=== PATIENT | male | born 1945 | race Caucasian/White ===

== ENCOUNTER 2020-06-22 14:44 | Emergency (ER) | payer MEDICARE ==
[~2020-06-22] VITALS: Ht 175.3 cm; Wt 115.9 kg
[~2020-06-22 14:44] MED LIST: DOCU-28 PO
[2020-06-22] MEDS ORDERED: normal saline 1000ML IV soln IVB ONE (15:40)
[2020-06-22 16:27] LABS: BASOPHILS # (AUTO) 0.1 X10'3 (0-0.2); EOSINOPHILS # (AUTO) 0.1 X10'3 (0-0.9); EOSINOPHILS % (AUTO) 0.8 % (0-6); HEMATOCRIT 39.9 % (42.0-52.0); HEMOGLOBIN 13.3 g/dl (14.0-17.9); LYMPHOCYTES # (AUTO) 0.9 X10'3 (1.1-4.8); LYMPHOCYTES % (AUTO) 13.5 % (21-51); MEAN CORPUSCULAR HEMOGLOBIN 28.2 PG (27.0-31.0); MEAN CORPUSCULAR HGB CONC 33.4 g/dL (33.0-36.5); MEAN CORPUSCULAR VOLUME 84.4 FL (78-98); MEAN PLATELET VOLUME 8.3 FL (7.4-10.4); MONOCYTES # (AUTO) 0.6 X10'3 (0-0.9); MONOCYTES % (AUTO) 8.8 % (2-12); NEUTROPHILS % (AUTO) 75.9 % (42-75); PLATELET COUNT 303 X10'3 (140-440); RED BLOOD COUNT 4.74 X10'6 (4.70-6.10); RED CELL DISTRIBUTION WIDTH 15.2 % (11.5-14.5); WHITE BLOOD COUNT 6.5 X10'3 (4.5-11.0)
[2020-06-22 16:53] LABS: ALANINE AMINOTRANSFERASE 11 U/L (12-78); ALBUMIN 3.7 G/DL (3.4-5.0); ALKALINE PHOSPHATASE 98 IU/L (46-116); ANION GAP 8 (8-16); ASPARTATE AMINO TRANSFERASE 6 U/L (10-37); BILIRUBIN,TOTAL 0.6 MG/DL (0.1-1.0); BLOOD UREA NITROGEN 25 MG/DL (7-18); BUN/CREATININE RATIO 16.6 (5.4-32.0); CALCIUM 9.7 MG/DL (8.5-10.1); CHLORIDE 103 MMOL/L (99-107); CREATININE 1.51 MG/DL (0.60-1.10); GLUCOSE 116 MG/DL (70-104); POTASSIUM 3.8 MMOL/L (3.5-5.1); SODIUM 139 MMOL/L (135-145); TOTAL CARBON DIOXIDE 28.3 MMOL/L (24-32); TOTAL PROTEIN 7.4 G/DL (6.4-8.2); eGFR 46 ML/MIN
[2020-06-22 17:31] VITALS: BP 110/58
[2020-06-22 17:42] LABS: CLARITY,URINE CLOUDY (Clear); COLOR,URINE YELLOW (Yellow); GLUCOSE, URINE NEGATIVE (Neg); KETONES,URINE NEGATIVE (Neg); LEUKOCYTE ESTERASE ,URINE LARGE (Neg); NITRITES, URINE NEGATIVE (Neg); OCCULT BLOOD,URINE MODERATE (Neg); PH,URINE 5.5 (4.8-8.0); PROTEIN,URINE TRACE mg/dl (Neg); UROBILINOGEN,URINE 0.2 E.U/dL (0.2-1.0)
[2020-06-22 17:55] LABS: UA COLLECTION TYPE VOIDED
[2020-06-22 17:57] LABS: BACTERIA,URINE FEW /HPF (Neg); HYALINE CASTS 0-3 /LPF (NEGATIVE); MUCUS STRANDS FEW /LPF (Neg); SQUAMOUS EPITHELIAL CELL,UR MANY /LPF (FEW); TRANSITIONAL EPI CELLS,URINE MODERATE /HPF; WBC CLUMPS,URINE MODERATE /HPF (NEGATIVE); WBC,URINE TNTC /HPF (0-4)
== END 2020-06-22 17:32 | disposition home or self-care (01) ==
LOC: ER 14:44
DX: E86.0 Dehydration (principal); I95.9 Hypotension, unspecified; R55 Syncope and collapse; E11.9 Type 2 diabetes mellitus without complications; Z72.89 Other problems related to lifestyle; Z60.2 Problems related to living alone; Z79.899 Other long term (current) drug therapy
CPT/HCPCS: 36415; 71045; 80053; 81001; 83880; 84484; 85025; 87088; 93005; 96360; 99285; J7030; 96365

== ENCOUNTER 2020-07-06 05:17 | Day surgery (SDC) | payer MEDICARE, OTHER ==
[2020-07-05 10:30] LABS: BASOPHILS # (AUTO) 0.1 X10'3 (0-0.2); BASOPHILS % (AUTO) 1.1 % (0-1); EOSINOPHILS # (AUTO) 0.1 X10'3 (0-0.9); EOSINOPHILS % (AUTO) 1.4 % (0-6); HEMATOCRIT 37.6 % (42.0-52.0); HEMOGLOBIN 12.3 g/dl (14.0-17.9); LYMPHOCYTES # (AUTO) 0.7 X10'3 (1.1-4.8); LYMPHOCYTES % (AUTO) 11.4 % (21-51); MEAN CORPUSCULAR HGB CONC 32.6 g/dL (33.0-36.5); MEAN CORPUSCULAR VOLUME 85.7 FL (78-98); MEAN PLATELET VOLUME 8.6 FL (7.4-10.4); MONOCYTES # (AUTO) 0.4 X10'3 (0-0.9); MONOCYTES % (AUTO) 6.7 % (2-12); NEUTROPHILS # (AUTO) 5.1 X10'3 (1.8-7.7); NEUTROPHILS % (AUTO) 79.4 % (42-75); PLATELET COUNT 225 X10'3 (140-440); RED BLOOD COUNT 4.39 X10'6 (4.70-6.10); WHITE BLOOD COUNT 6.4 X10'3 (4.5-11.0)
[2020-07-05 10:37] LABS: ALBUMIN 3.1 G/DL (3.4-5.0); ANION GAP 10 (8-16); BLOOD UREA NITROGEN 11 MG/DL (7-18); BUN/CREATININE RATIO 11.5 (5.4-32.0); CALCIUM 8.2 MG/DL (8.5-10.1); CHLORIDE 102 MMOL/L (99-107); CREATININE 0.96 MG/DL (0.60-1.10); GLUCOSE 178 MG/DL (70-104); POTASSIUM 3.5 MMOL/L (3.5-5.1); SODIUM 137 MMOL/L (135-145); TOTAL CARBON DIOXIDE 25.5 MMOL/L (24-32); eGFR 77 ML/MIN
[2020-07-05 10:39] LABS: PARTIAL THROMBOPLASTIN TIME 26 SECONDS (22-32)
[2020-07-06] VITALS (14 sets, daily range): BP systolic 164–194; BP diastolic 86–131
[~2020-07-06] VITALS: Ht 175.3 cm; Wt 120.2 kg
[2020-07-06] MEDS ORDERED: normal saline 1,000 ML IV SCH (06:10)
[2020-07-06] MEDS ORDERED: diphenhydrAMINE 25mg capsule PO PRN (06:10)
[2020-07-06] MEDS ORDERED: LORazepam 0.5 MG tablet PO PRN (06:10)
[2020-07-06] MEDS ORDERED: LIDOcaine/PRILOcaine 5gm cream TP ONE (06:10)
[2020-07-06] MEDS ORDERED: CARV-50 PO (06:31)
[2020-07-06] MEDS ORDERED: ASPI-611 PO (06:31)
[2020-07-06] MEDS ORDERED: PIOG30TA71 PO (06:31)
[2020-07-06] MEDS ORDERED: ATOR10TA87 PO (06:31)
[2020-07-06] MEDS ORDERED: APIX5TAB3 PO (06:31)
[2020-07-06] MEDS ORDERED: FLO0.4C PO (06:31)
[2020-07-06] MEDS ORDERED: LISI10TA4 PO (06:31)
[2020-07-06] MEDS ORDERED: B12 FOLATE PO (06:32)
[2020-07-06] MEDS ORDERED: METF-951 PO (06:32)
[2020-07-06] MEDS ORDERED: midazolam 2 mg/2 ml injection ONE (11:05)
[2020-07-06] MEDS ORDERED: nitroGLYCERIN-Tridil 50MG/D5W 250 ML IV ONE (11:05)
[2020-07-06] MEDS ORDERED: verapamil 2.5 mg/ml inj IV ONE (11:05)
[2020-07-06] MEDS ORDERED: fentaNYL/PF 50MCG/1 ML 2ML syringe ONE (11:06)
[2020-07-06] MEDS ORDERED: LIDOcaine 1% (10mg/ml)w/preservative injection 20ml MDV ONE (11:06)
[2020-07-06] MEDS ORDERED: iohexol 350MG/ML 100ml bottle IV ONE ×3 (11:06→12:33)
[2020-07-06] MEDS ORDERED: iohexol 350 MG/ML 50ML vial IV ONE (11:06)
[2020-07-06] MEDS ORDERED: heparin 1,000unit/ml 10ml vial 10 ML ONE (11:06)
[2020-07-06] MEDS ORDERED: heparin 25,000 UNIT/250ml bag 250 ML IV ONE (12:33)
[2020-07-06] MEDS ORDERED: normal saline 1000ml 1,000 ML IV SCH (13:40)
[2020-07-06] MEDS ORDERED: lisinopril 10 MG tablet PO SCH (15:10)
[2020-07-06] MEDS ORDERED: carVEDilol 12.5mg tablet PO SCH (15:10)
== END 2020-07-06 19:30 | disposition home or self-care (01) ==
LOC: SSTAY O 05:17
PROVIDERS: ATTEND Internal Medicine Cardiovascular Disease
DX: R06.02 Shortness of breath (principal); R53.83 Other fatigue; I25.10 Atherosclerotic heart disease of native coronary artery without angina pectoris; I25.82 Chronic total occlusion of coronary artery; I48.91 Unspecified atrial fibrillation; E78.5 Hyperlipidemia, unspecified; I10 Essential (primary) hypertension; E11.9 Type 2 diabetes mellitus without complications; N40.0 Benign prostatic hyperplasia without lower urinary tract symptoms; Z88.0 Allergy status to penicillin; Z87.440 Personal history of urinary (tract) infections; Z79.82 Long term (current) use of aspirin; Z79.899 Other long term (current) drug therapy; Z79.84 Long term (current) use of oral hypoglycemic drugs; Z98.890 Other specified postprocedural states; Z87.442 Personal history of urinary calculi; Z80.3 Family history of malignant neoplasm of breast; Z80.6 Family history of leukemia; Z80.8 Family history of malignant neoplasm of other organs or systems
CPT/HCPCS: 36415; 80048; 85025; 85610; 85730; 93005; 93460; 99152; 99153; C1751; C1769; C1894; J1644; J2001; J2250; J3010; J7030; Q0163; Q9967; A4620; A5120; J3490

== ENCOUNTER 2021-04-16 13:28 | Emergency (ER) | payer MEDICARE, OTHER ==
[~2021-04-16] VITALS: Ht 177.8 cm; Wt 118.0 kg
[~2021-04-16 13:28] MED LIST changes: +APIX5TAB3 PO; +ASPI-611 PO; +ATOR10TA87 PO; +B12 FOLATE PO; +CARV-50 PO; -DOCU-28 PO; +FLO0.4C PO; +LISI10TA27 PO; +METF-951 PO; +PIOG30TA71 PO
[2021-04-16] MEDS ORDERED: normal saline 1000ML IV soln IVB ONE (13:50)
[2021-04-16 14:34] LABS: BASOPHILS # (AUTO) 0.1 X10'3 (0-0.2); BASOPHILS % (AUTO) 0.9 % (0-1); EOSINOPHILS # (AUTO) 0.1 X10'3 (0-0.9); EOSINOPHILS % (AUTO) 1.3 % (0-6); HEMATOCRIT 42.7 % (42.0-52.0); HEMOGLOBIN 14.1 g/dl (14.0-17.9); LYMPHOCYTES # (AUTO) 1.4 X10'3 (1.1-4.8); LYMPHOCYTES % (AUTO) 16.5 % (21-51); MEAN CORPUSCULAR HEMOGLOBIN 27.4 PG (27.0-31.0); MEAN CORPUSCULAR HGB CONC 33.1 g/dL (33.0-36.5); MEAN CORPUSCULAR VOLUME 82.8 FL (78-98); MEAN PLATELET VOLUME 9.1 FL (7.4-10.4); MONOCYTES # (AUTO) 0.5 X10'3 (0-0.9); MONOCYTES % (AUTO) 5.8 % (2-12); NEUTROPHILS # (AUTO) 6.2 X10'3 (1.8-7.7); NEUTROPHILS % (AUTO) 75.5 % (42-75); PLATELET COUNT 262 X10'3 (140-440); RED BLOOD COUNT 5.16 X10'6 (4.70-6.10); RED CELL DISTRIBUTION WIDTH 14.9 % (11.5-14.5); WHITE BLOOD COUNT 8.3 X10'3 (4.5-11.0)
[2021-04-16 14:49] LABS: ALANINE AMINOTRANSFERASE 13 U/L (12-78); ALBUMIN 3.6 G/DL (3.4-5.0); ALBUMIN/GLOBULIN RATIO 1.1 (1.1-1.5); ALKALINE PHOSPHATASE 104 IU/L (46-116); ANION GAP 12 (8-16); ASPARTATE AMINO TRANSFERASE 11 U/L (10-37); BILIRUBIN,TOTAL 0.6 MG/DL (0.1-1.0); BLOOD UREA NITROGEN 12 MG/DL (7-18); BUN/CREATININE RATIO 9.2 (5.4-32.0); CALCIUM 8.7 MG/DL (8.5-10.1); CHLORIDE 106 MMOL/L (99-107); CREATININE 1.31 MG/DL (0.60-1.10); GLUCOSE 226 MG/DL (70-104); MAGNESIUM 1.5 MG/DL (1.5-2.4); SODIUM 143 MMOL/L (135-145); TOTAL CARBON DIOXIDE 24.9 MMOL/L (24-32); TOTAL PROTEIN 6.9 G/DL (6.4-8.2); eGFR 53 ML/MIN
[2021-04-16 14:51] LABS: POTASSIUM 2.8 MMOL/L (3.5-5.1)
--- NOTE | 2021-04-16 14:52 | NUR ---
lab called: K IS 2.8, PTT TO BE REDRAWN INFORMED MONSERRAT MAZA
[2021-04-16] MEDS ORDERED: potassium Cl 20 mEq SR tablet PO ONE (14:55)
[2021-04-16] MEDS ORDERED: potassium Cl 10 mEq/100mL bag IV ONE (14:55)
[2021-04-16 15:20] LABS: PARTIAL THROMBOPLASTIN TIME 24 SECONDS (22-32)
[2021-04-16] MEDS ORDERED: normal saline 500ml IV soln 500 ML IV ONE (15:35)
[2021-04-16 16:19] LABS: CLARITY,URINE SLIGHTLY CLOUDY (Clear); COLOR,URINE YELLOW (Yellow); GLUCOSE, URINE 100 mg/dl (Neg); KETONES,URINE NEGATIVE (Neg); LEUKOCYTE ESTERASE ,URINE SMALL (Neg); NITRITES, URINE NEGATIVE (Neg); OCCULT BLOOD,URINE TRACE-LYSED (Neg); PROTEIN,URINE 30 mg/dl (Neg); UROBILINOGEN,URINE 0.2 E.U/dL (0.2-1.0)
[2021-04-16 16:26] LABS: URINE AMPHETAMINE SCREEN NEGATIVE (Neg); URINE BARBITUATE SCREEN NEGATIVE (Neg); URINE BENZODIAZEPINES SCREEN NEGATIVE (Neg); URINE CANNABINOID SCREEN NEGATIVE (Neg); URINE COCAINE SCREEN NEGATIVE (Neg); URINE METHADONE SCREEN NEGATIVE (Neg); URINE OPIATE SCREEN POSITIVE (Neg); URINE PHENCYCLIDINE SCREEN NEGATIVE (Neg)
[2021-04-16 16:28] LABS: UA COLLECTION TYPE CLN CATCH MIDSTREAM
[2021-04-16 16:29] LABS: WBC,URINE 50-100 /HPF (0-4)
[2021-04-16 16:30] LABS: BACTERIA,URINE 1+ /HPF (Neg); MUCUS STRANDS NONE SEEN /LPF (Neg); RBC,URINE NONE SEEN /HPF (0-2); SQUAMOUS EPITHELIAL CELL,UR FEW /LPF (FEW)
[2021-04-16] MEDS ORDERED: CEPH250T PO (16:34)
[2021-04-16 17:07] VITALS: BP 156/99
== END 2021-04-16 17:09 | disposition home or self-care (01) ==
LOC: ER 13:29
DX: N39.0 Urinary tract infection, site not specified (principal); Z20.822 Contact with and (suspected) exposure to COVID-19; E86.0 Dehydration; R42 Dizziness and giddiness; R50.9 Fever, unspecified; R05 Cough; I10 Essential (primary) hypertension; E11.9 Type 2 diabetes mellitus without complications; Z72.89 Other problems related to lifestyle; Z60.2 Problems related to living alone; Z79.82 Long term (current) use of aspirin; Z79.2 Long term (current) use of antibiotics; Z79.899 Other long term (current) drug therapy
CPT/HCPCS: 36415; 70450; 71045; 80053; 80305; 81001; 82948; 83735; 83880; 84484; 85025; 85610; 85730; 87088; 87186; 87635; 96365; 99285; C9803; J3480; J7030; J7040; 87077

== ENCOUNTER 2022-12-11 16:32 | Emergency (ER) | payer BC, MEDICARE, OTHER ==
[~2022-12-11] VITALS: Ht 177.8 cm; Wt 118.2 kg
[~2022-12-11 16:32] MED LIST changes: +METF-1157 PO; -METF-951 PO
[2022-12-11 17:40] VITALS: BP 112/90
[2022-12-11] MEDS ORDERED: bacitracin 15gm ointment TP ONE (17:45)
== END 2022-12-11 20:51 | disposition home or self-care (01) ==
LOC: ER 16:33
DX: S51.812A Laceration without foreign body of left forearm, initial encounter (principal); I10 Essential (primary) hypertension; E11.9 Type 2 diabetes mellitus without complications; Z60.2 Problems related to living alone; Z79.82 Long term (current) use of aspirin; Z79.01 Long term (current) use of anticoagulants; Z79.84 Long term (current) use of oral hypoglycemic drugs; Z79.899 Other long term (current) drug therapy; W18.39XA Other fall on same level, initial encounter; Y93.89 Activity, other specified; Y92.89 Other specified places as the place of occurrence of the external cause; Y99.8 Other external cause status
CPT/HCPCS: 73080; 73090; 99284; A6258; A6449

== ENCOUNTER 2023-03-14 11:54 | Emergency (ER) | payer BC ==
[~2023-03-14] VITALS: Ht 175.3 cm; Wt 115.0 kg
[2023-03-14 12:51] LABS: BASOPHILS # (AUTO) 0.1 X10'3 (0-0.2); BASOPHILS % (AUTO) 0.9 % (0-1); EOSINOPHILS # (AUTO) 0.1 X10'3 (0-0.9); EOSINOPHILS % (AUTO) 1.2 % (0-6); HEMATOCRIT 46.4 % (42.0-52.0); HEMOGLOBIN 15.3 g/dl (14.0-17.9); LYMPHOCYTES # (AUTO) 0.6 X10'3 (1.1-4.8); LYMPHOCYTES % (AUTO) 7.8 % (21-51); MEAN CORPUSCULAR HEMOGLOBIN 27.5 PG (27.0-31.0); MEAN CORPUSCULAR VOLUME 83.3 FL (78-98); MEAN PLATELET VOLUME 8.8 FL (7.4-10.4); MONOCYTES # (AUTO) 0.6 X10'3 (0-0.9); MONOCYTES % (AUTO) 6.9 % (2-12); NEUTROPHILS # (AUTO) 6.7 X10'3 (1.8-7.7); NEUTROPHILS % (AUTO) 83.2 % (42-75); PLATELET COUNT 221 X10'3 (140-440); RED BLOOD COUNT 5.57 X10'6 (4.70-6.10); RED CELL DISTRIBUTION WIDTH 14.4 % (11.5-14.5)
[2023-03-14 13:01] LABS: ALANINE AMINOTRANSFERASE 17 U/L (12-78); ALBUMIN 3.4 G/DL (3.4-5.0); ALKALINE PHOSPHATASE 212 IU/L (46-116); ANION GAP 10 (8-16); ASPARTATE AMINO TRANSFERASE 13 U/L (10-37); BILIRUBIN,TOTAL 0.9 MG/DL (0.1-1.0); BLOOD UREA NITROGEN 20 MG/DL (7-18); BUN/CREATININE RATIO 16.5 (10.0-20.0); CALCIUM 8.8 MG/DL (8.5-10.1); CHLORIDE 100 MMOL/L (99-107); CREATININE 1.21 MG/DL (0.60-1.10); GLUCOSE 253 MG/DL (70-104); POTASSIUM 3.7 MMOL/L (3.5-5.1); SODIUM 137 MMOL/L (135-145); TOTAL CARBON DIOXIDE 27.1 MMOL/L (24-32); TOTAL PROTEIN 6.7 G/DL (6.4-8.2); eGFR 58 ML/MIN
[2023-03-14 13:09] VITALS: BP_DIAS 107
[2023-03-14] MEDS ORDERED: amLODIPine 5mg tablet PO ONE (13:35)
[2023-03-14 13:38] VITALS: BP_SYST 196
[2023-03-14] MEDS ORDERED: AMLO5TAB4 PO (13:44)
== END 2023-03-14 14:06 | disposition home or self-care (01) ==
LOC: ER 11:54
DX: R42 Dizziness and giddiness (principal); I10 Essential (primary) hypertension; E11.9 Type 2 diabetes mellitus without complications
CPT/HCPCS: 36415; 71045; 80053; 83880; 85025; 93005; 99285

== ENCOUNTER 2024-11-05 14:04 | Inpatient (IN) | payer BC ==
[~2024-11-05] VITALS: Ht 175.3 cm; Wt 77.3 kg
[~2024-11-05 14:04] MED LIST changes: -APIX5TAB3 PO; -ASPI-611 PO; -ATOR10TA87 PO; -CARV-50 PO; -FLO0.4C PO; -LISI10TA27 PO; -METF-1157 PO; +MULT-1085 PO; -PIOG30TA71 PO
[2024-11-05 15:02] LABS: BASOPHILS # (AUTO) 0.1 X10'3 (0-0.2); BASOPHILS % (AUTO) 0.8 % (0-1); EOSINOPHILS % (AUTO) 0.4 % (0-6); HEMOGLOBIN 13.9 g/dl (14.0-17.9); LYMPHOCYTES # (AUTO) 0.8 X10'3 (1.1-4.8); LYMPHOCYTES % (AUTO) 7.2 % (21-51); MEAN CORPUSCULAR HEMOGLOBIN 28.3 PG (27.0-31.0); MEAN CORPUSCULAR VOLUME 85.6 FL (78-98); MEAN PLATELET VOLUME 8.4 FL (7.4-10.4); MONOCYTES % (AUTO) 8.9 % (2-12); NEUTROPHILS # (AUTO) 8.9 X10'3 (1.8-7.7); NEUTROPHILS % (AUTO) 82.7 % (42-75); PLATELET COUNT 193 X10'3 (140-440); RED BLOOD COUNT 4.91 X10'6 (4.70-6.10); RED CELL DISTRIBUTION WIDTH 14.3 % (11.5-14.5); WHITE BLOOD COUNT 10.7 X10'3 (4.5-11.0)
[2024-11-05 15:12] LABS: ALANINE AMINOTRANSFERASE 20 U/L (12-78); ALBUMIN/GLOBULIN RATIO 0.8 (1.1-1.5); ALKALINE PHOSPHATASE 126 IU/L (46-116); ANION GAP 8 (8-16); ASPARTATE AMINO TRANSFERASE 20 U/L (10-37); BILIRUBIN,TOTAL 0.9 MG/DL (0.1-1.0); BLOOD UREA NITROGEN 14 MG/DL (7-18); CALCIUM 8.5 MG/DL (8.5-10.1); CHLORIDE 102 MMOL/L (99-107); CREATININE 1.08 MG/DL (0.60-1.10); GLUCOSE 155 MG/DL (70-104); POTASSIUM 4.2 MMOL/L (3.5-5.1); SODIUM 137 MMOL/L (135-145); TOTAL CARBON DIOXIDE 26.6 MMOL/L (24-32); TOTAL PROTEIN 6.6 G/DL (6.4-8.2); eCRCL 57 ML/MIN; eGFR 66 ML/MIN
[2024-11-05 15:20] LABS: PRO BRAIN NATRIURETIC PEPTIDE 4288 PG/ML (0-450)
[2024-11-05] MEDS: aspirin 81mg tab.chew PO ONE (15:35)
[2024-11-05 15:42] LABS: ETHANOL < 10 MG/DL (<10); MAGNESIUM 1.6 MG/DL (1.5-2.4)
[2024-11-05] MEDS: diltiazem 5mg/ml 5ml inj. IV ONE (15:47)
[2024-11-05] MEDS: normal saline 1000ml 1,000 ML IV ONE (15:47)
[2024-11-05] MEDS: diltiazem-NS 100mg/100ml 100 ML IV PRN (15:57)
[2024-11-05 16:01] LABS: APTT 26 SECONDS (22-32); INR 1.1 INR; PROTHROMBIN TIME 11.5 SECONDS (9.0-12.0)
[2024-11-05] MEDS ORDERED: acetaminophen 325mg tablet PO PRN ×2 (16:50)
[2024-11-05] MEDS ORDERED: ondansetron/PF 4mg/2ml inj IV PRN (16:50)
[2024-11-05] MEDS ORDERED: magnesium hydroxide 30ml (MOM) UD suspension PO PRN (16:50)
[2024-11-05] MEDS ORDERED: mag hydrox/Alum hydrox/simeth 30ml oral suspension PO PRN (16:50)
[2024-11-05] MEDS ORDERED: morphine 2 MG/ML inj. syringe IV PRN ×2 (16:50)
[2024-11-05] MEDS ORDERED: HYDROcodone/acetaminophen 5mg/325mg tablet PO PRN (16:50)
[2024-11-05] MEDS: magnesium sulf-water 2g/50mL 50 ML IV ONE (17:35)
[2024-11-05 17:42] LABS: HEMOGLOBIN A1C 6.5 % (4.5-6.2)
[2024-11-05 17:48] LABS: THYROID STIMULATING HORMONE 1.93 ulU/ml (0.34-4.50)
[2024-11-05] MEDS ORDERED: AMLO5TAB16 PO (17:48)
[2024-11-05] MEDS ORDERED: METO-384 PO (17:48)
[2024-11-05] MEDS ORDERED: METF-438 PO (17:48)
[2024-11-05] MEDS ORDERED: LISI20TA28 PO (17:48)
[2024-11-05 18:02] LABS: BILIRUBIN,URINE NEGATIVE (Neg); CLARITY,URINE CLEAR (Clear); COLOR,URINE YELLOW (Yellow); GLUCOSE, URINE 100 mg/dl (Neg); KETONES,URINE TRACE mg/dl (Neg); LEUKOCYTE ESTERASE ,URINE TRACE (Neg); NITRITES, URINE NEGATIVE (Neg); OCCULT BLOOD,URINE TRACE-INTACT (Neg); PROTEIN,URINE TRACE mg/dl (Neg)
[2024-11-05 18:05] LABS: UA COLLECTION TYPE CLN CATCH MIDSTREAM
[2024-11-05 18:25] LABS: BACTERIA,URINE FEW /HPF (Neg); RBC,URINE 0-2 /HPF (0-2); SQUAMOUS EPITHELIAL CELL,UR FEW /LPF (FEW); WBC,URINE 20-30 /HPF (0-4)
[2024-11-05 18:34] LABS: URINE AMPHETAMINE SCREEN NEGATIVE (Neg); URINE BARBITUATE SCREEN NEGATIVE (Neg); URINE BENZODIAZEPINES SCREEN NEGATIVE (Neg); URINE CANNABINOID SCREEN NEGATIVE (Neg); URINE COCAINE SCREEN NEGATIVE (Neg); URINE METHADONE SCREEN NEGATIVE (Neg); URINE OPIATE SCREEN NEGATIVE (Neg); URINE PHENCYCLIDINE SCREEN NEGATIVE (Neg)
[2024-11-05] MEDS: diltiazem CD 180mg cap (once-daily) PO SCH (19:02)
[2024-11-05] MEDS: furosemide 20 MG/2 ML vial IV SCH (19:02)
[2024-11-05] MEDS: docusate sod 100mg capsule PO SCH (20:00)
[2024-11-05] MEDS: metoprolol succinate 25mg (24-HOUR) SR. Tablet PO SCH (21:11)
[2024-11-05] MEDS: CefTRIAXone 2gm/D5W 50ml BAG 50 ML IV ONE (22:34)
[2024-11-05] MEDS: FOSFOMYCIN TROMETHAMINE 3 GM PACKET PO ONE (22:34)
[2024-11-05 22:55] VITALS: BP 117/91; PULSE 110; RESP 20; TEMP 98.1; O2SAT 98
[2024-11-05 23:00] VITALS: RESP 18; O2SAT 95
[2024-11-05 23:30] VITALS: BP 156/90; PULSE 95
[2024-11-06] VITALS (12 sets, daily range): BP systolic 121–154; BP diastolic 72–93; PULSE 73–121; RESP 20–35; TEMP 97.1–98.1; O2SAT 94–98
[2024-11-06] MEDS ORDERED: glucagon, human recombinant 1mg kit SUBCUT PRN (05:00)
[2024-11-06] MEDS ORDERED: dextrose 50%-water 50ml dispensing syringe IV PRN ×2 (05:00)
[2024-11-06] MEDS ORDERED: DEXTROSE 15 GM of carb/4 tabs (each vial/BOTTLE has 4 tablets) PO PRN ×2 (05:00)
[2024-11-06 07:24] LABS: BASOPHILS # (AUTO) 0.1 X10'3 (0-0.2); BASOPHILS % (AUTO) 0.7 % (0-1); EOSINOPHILS % (AUTO) 0.3 % (0-6); HEMATOCRIT 40.7 % (42.0-52.0); HEMOGLOBIN 13.3 g/dl (14.0-17.9); LYMPHOCYTES # (AUTO) 0.8 X10'3 (1.1-4.8); LYMPHOCYTES % (AUTO) 6.8 % (21-51); MEAN CORPUSCULAR HEMOGLOBIN 28.1 PG (27.0-31.0); MEAN CORPUSCULAR HGB CONC 32.7 g/dL (33.0-36.5); MEAN CORPUSCULAR VOLUME 85.8 FL (78-98); MEAN PLATELET VOLUME 8.6 FL (7.4-10.4); MONOCYTES # (AUTO) 1.2 X10'3 (0-0.9); NEUTROPHILS # (AUTO) 9.9 X10'3 (1.8-7.7); NEUTROPHILS % (AUTO) 82.2 % (42-75); PLATELET COUNT 188 X10'3 (140-440); RED BLOOD COUNT 4.74 X10'6 (4.70-6.10); RED CELL DISTRIBUTION WIDTH 14.5 % (11.5-14.5); WHITE BLOOD COUNT 12.1 X10'3 (4.5-11.0)
[2024-11-06 07:51] LABS: ALBUMIN 2.9 G/DL (3.4-5.0); ANION GAP 11 (8-16); BLOOD UREA NITROGEN 16 MG/DL (7-18); BUN/CREATININE RATIO 16.8 (10.0-20.0); CALCIUM 8.1 MG/DL (8.5-10.1); CHLORIDE 101 MMOL/L (99-107); CREATININE 0.95 MG/DL (0.60-1.10); GLUCOSE 160 MG/DL (70-104); SODIUM 137 MMOL/L (135-145); TOTAL CARBON DIOXIDE 25.1 MMOL/L (24-32); eCRCL 65 ML/MIN; eGFR 77 ML/MIN
[2024-11-06] MEDS: CefTRIAXone/D5W-Rocephin 1gm 50 ML IV SCH (08:06)
[2024-11-06] MEDS: INSULIN LISPRO 100 UNIT/ML INSULN.PEN MULTI-DOSE SQ SCH ×2 (08:12→10:45)
[2024-11-06] MEDS: nystatin 15 GM powder TP SCH (20:01)
[2024-11-06] MEDS: metoprolol succinate 25mg (24-HOUR) SR. Tablet PO SCH (21:31)
[2024-11-06] MEDS: insulin glargine (Lantus) pen - multi-dose SQ SCH (21:37)
[2024-11-07] VITALS (7 sets, daily range): BP systolic 120–155; BP diastolic 64–91; PULSE 63–110; RESP 16–26; TEMP 97.3–97.9; O2SAT 96–99
[2024-11-07 06:39] LABS: BASOPHILS # (AUTO) 0.1 X10'3 (0-0.2); BASOPHILS % (AUTO) 0.5 % (0-1); EOSINOPHILS # (AUTO) 0.1 X10'3 (0-0.9); EOSINOPHILS % (AUTO) 0.8 % (0-6); HEMATOCRIT 39.2 % (42.0-52.0); LYMPHOCYTES # (AUTO) 0.7 X10'3 (1.1-4.8); LYMPHOCYTES % (AUTO) 6.8 % (21-51); MEAN CORPUSCULAR HEMOGLOBIN 28.2 PG (27.0-31.0); MEAN CORPUSCULAR HGB CONC 33.1 g/dL (33.0-36.5); MEAN PLATELET VOLUME 8.2 FL (7.4-10.4); MONOCYTES # (AUTO) 1.1 X10'3 (0-0.9); MONOCYTES % (AUTO) 10.2 % (2-12); NEUTROPHILS % (AUTO) 81.7 % (42-75); PLATELET COUNT 196 X10'3 (140-440); RED BLOOD COUNT 4.61 X10'6 (4.70-6.10); RED CELL DISTRIBUTION WIDTH 14.3 % (11.5-14.5)
[2024-11-07 06:44] LABS: ALBUMIN 2.6 G/DL (3.4-5.0); ANION GAP 6 (8-16); BLOOD UREA NITROGEN 19 MG/DL (7-18); BUN/CREATININE RATIO 21.8 (10.0-20.0); CALCIUM 8.3 MG/DL (8.5-10.1); CHLORIDE 101 MMOL/L (99-107); CREATININE 0.87 MG/DL (0.60-1.10); GLUCOSE 146 MG/DL (70-104); POTASSIUM 3.8 MMOL/L (3.5-5.1); SODIUM 137 MMOL/L (135-145); TOTAL CARBON DIOXIDE 30.5 MMOL/L (24-32); eCRCL 71 ML/MIN; eGFR 85 ML/MIN
[2024-11-07] MEDS: EMPAGLIFLOZIN 10 MG TABLET PO SCH (07:08)
[2024-11-07] MEDS: potassium Cl 20 mEq SR tablet PO STA (10:29)
[2024-11-07] MEDS: furosemide 20 MG/2 ML vial IV ONE (10:31)
[2024-11-07] MEDS: magnesium sulf-water 2g/50mL 50 ML IV ONE (10:35)
[2024-11-07] MEDS: metoprolol succinate 25mg (24-HOUR) SR. Tablet PO SCH (20:30)
[2024-11-07] MEDS: atorvastatin 20mg tablet PO SCH (20:31)
[2024-11-07] MEDS: magnesium Cl slow-release 64mg tablet PO SCH (20:32)
[2024-11-08 02:00] VITALS: BP 138/80; PULSE 81; RESP 20; TEMP 97.8; O2SAT 98
[2024-11-08 06:34] LABS: BASOPHILS # (AUTO) 0.1 X10'3 (0-0.2); BASOPHILS % (AUTO) 0.7 % (0-1); EOSINOPHILS # (AUTO) 0.1 X10'3 (0-0.9); EOSINOPHILS % (AUTO) 1.3 % (0-6); HEMOGLOBIN 15.4 g/dl (14.0-17.9); LYMPHOCYTES # (AUTO) 0.8 X10'3 (1.1-4.8); LYMPHOCYTES % (AUTO) 8.3 % (21-51); MEAN CORPUSCULAR HEMOGLOBIN 28.6 PG (27.0-31.0); MEAN CORPUSCULAR HGB CONC 33.4 g/dL (33.0-36.5); MEAN CORPUSCULAR VOLUME 85.5 FL (78-98); MEAN PLATELET VOLUME 8.3 FL (7.4-10.4); MONOCYTES # (AUTO) 1.1 X10'3 (0-0.9); MONOCYTES % (AUTO) 11.4 % (2-12); NEUTROPHILS # (AUTO) 7.7 X10'3 (1.8-7.7); NEUTROPHILS % (AUTO) 78.3 % (42-75); PLATELET COUNT 217 X10'3 (140-440); RED BLOOD COUNT 5.38 X10'6 (4.70-6.10); RED CELL DISTRIBUTION WIDTH 14.4 % (11.5-14.5); WHITE BLOOD COUNT 9.9 X10'3 (4.5-11.0)
[2024-11-08 07:00] VITALS: BP 138/75; PULSE 109; RESP 29; TEMP 97.4; O2SAT 98
[2024-11-08 07:13] LABS: ALBUMIN 2.7 G/DL (3.4-5.0); ANION GAP 11 (8-16); BLOOD UREA NITROGEN 28 MG/DL (7-18); BUN/CREATININE RATIO 28.3 (10.0-20.0); CALCIUM 9.1 MG/DL (8.5-10.1); CHLORIDE 101 MMOL/L (99-107); CREATININE 0.99 MG/DL (0.60-1.10); GLUCOSE 143 MG/DL (70-104); POTASSIUM 4.1 MMOL/L (3.5-5.1); SODIUM 138 MMOL/L (135-145); TOTAL CARBON DIOXIDE 26.2 MMOL/L (24-32); eCRCL 62 ML/MIN; eGFR 73 ML/MIN
[2024-11-08] MEDS ORDERED: FURO-149 PO (09:11)
[2024-11-08] MEDS ORDERED: EMPA10TA PO (09:11)
[2024-11-08] MEDS ORDERED: WARF-55 PO (09:11)
[2024-11-08] MEDS ORDERED: CARCD120C PO (09:11)
[2024-11-08] MEDS ORDERED: AMOX-580 PO (09:13)
[2024-11-08 11:00] VITALS: BP 119/85; PULSE 112; RESP 25; TEMP 97.4; O2SAT 96
[2024-11-09] MEDS ORDERED: diltiazem CD 120mg capsule (once-daily) PO SCH (08:00)
== END 2024-11-08 13:50 | disposition home health service (06) | DRG 175 ==
LOC: ER 14:04 → ED HOLD 16:53 → PCU 3S 23:15
PROVIDERS: ADMIT Internal Medicine; ATTEND Internal Medicine
DX: I26.09 Other pulmonary embolism with acute cor pulmonale (principal); I50.32 Chronic diastolic (congestive) heart failure; N30.00 Acute cystitis without hematuria; F03.A18 Unspecified dementia, mild, with other behavioral disturbance; I13.0 Hypertensive heart and chronic kidney disease with heart failure and stage 1 through stage 4 chronic kidney disease, or unspecified chronic kidney disease; I42.9 Cardiomyopathy, unspecified; S42.292K Other displaced fracture of upper end of left humerus, subsequent encounter for fracture with nonunion; I48.19 Other persistent atrial fibrillation; R65.10 Systemic inflammatory response syndrome (SIRS) of non-infectious origin without acute organ dysfunction; I48.0 Paroxysmal atrial fibrillation; N18.9 Chronic kidney disease, unspecified; E11.22 Type 2 diabetes mellitus with diabetic chronic kidney disease; B95.2 Enterococcus as the cause of diseases classified elsewhere; I27.20 Pulmonary hypertension, unspecified; I25.10 Atherosclerotic heart disease of native coronary artery without angina pectoris; M25.362 Other instability, left knee; N40.0 Benign prostatic hyperplasia without lower urinary tract symptoms; E78.5 Hyperlipidemia, unspecified; Z79.01 Long term (current) use of anticoagulants; Z80.8 Family history of malignant neoplasm of other organs or systems; Z87.442 Personal history of urinary calculi; Z91.81 History of falling; W18.39XD Other fall on same level, subsequent encounter
CPT/HCPCS: 36415; 71045; 73030; 73200; 80048; 80053; 80305; 80320; 81001; 82948; 83036; 83735; 83880; 84443; 84484; 85025; 85610; 85730; 87077; 87081; 87088; 87186; 93005; 93306; 96361; 96365; 96366; 96375; 96376; 97116; 97162; 97530; 99291; G0378; J0696; J1815; J1940; J3490; J7030

== ENCOUNTER 2025-01-13 12:08 | Inpatient (IN) | payer BC ==
[~2025-01-13] VITALS: Ht 175.3 cm; Wt 81.1 kg
[2025-01-13] VITALS (7 sets, daily range): BP systolic 121–147; BP diastolic 90–102; PULSE 74–127; RESP 15–20; TEMP 97.4–98.3; O2SAT 96–99
[~2025-01-13 12:08] MED LIST changes: +CARCD120C PO; +EMPA10TA PO; +FURO-149 PO; +METO-384 PO; +WARF-55 PO
--- NOTE | 2025-01-13 12:12 | ELECTROCARDIOGRAPH REPORT ---
[facility] Test Date: 2025-01-13 Test Time: 12:10:02 Pat Name: FREDERIC MELGAR Department: EMERGENCY ROOM Room: [place] [address] Gender: M Certification Engineer: : [id number] Requested By: KELLIE GRANT Order Number: [id number] Reading MD: Dr. Gaurav Pelayo Measurements Intervals [place] Rate: 134 P: 248 SC: 84 QRS: 231 QRSD: 155 T: 158 QT: 351 QTc: 524 Interpretive Statements Sinus or ectopic atrial tachycardia Consider dextrocardia Electronically Signed On 01-20-2025 21:44:[address] Gaurav Pelayo Please click the below link to view image of tracing.
[2025-01-13 12:41] LABS: BASOPHILS # (AUTO) 0.1 X10'3 (0-0.2); BASOPHILS % (AUTO) 1.1 % (0-1); EOSINOPHILS # (AUTO) 0.1 X10'3 (0-0.9); EOSINOPHILS % (AUTO) 1.2 % (0-6); MEAN CORPUSCULAR HEMOGLOBIN 26.8 PG (27.0-31.0); MEAN CORPUSCULAR HGB CONC 32.6 g/dL (33.0-36.5); MEAN CORPUSCULAR VOLUME 82.2 FL (78-98); MEAN PLATELET VOLUME 7.7 FL (7.4-10.4); MONOCYTES # (AUTO) 0.7 X10'3 (0-0.9); NEUTROPHILS # (AUTO) 5.3 X10'3 (1.8-7.7); NEUTROPHILS % (AUTO) 73.7 % (42-75); PLATELET COUNT 294 X10'3 (140-440); RED CELL DISTRIBUTION WIDTH 15.8 % (11.5-14.5); WHITE BLOOD COUNT 7.2 X10'3 (4.5-11.0)
--- NOTE | 2025-01-13 12:58 | RADIOLOGY REPORT ---
CHEST RADIOGRAPH Indication: CP Technique: Single frontal view of the chest was obtained Comparison: 11/05/2024 FINDINGS: The cardiac silhouette is enlarged. The lungs demonstrate bilateral patchy airspace opacities, most p ronounced within the left lower lobe. The pulmonary vasculature is prominent. Small to moderate left pleural effusion. Aortic atherosclerotic disease. There is no pneumothorax. Old distal left clavicul ar fracture deformity. IMPRESSION: 1. As above
[2025-01-13 13:02] LABS: ALANINE AMINOTRANSFERASE 26 U/L (12-78); ALBUMIN 3.4 G/DL (3.4-5.0); ALBUMIN/GLOBULIN RATIO 1.1 (1.1-1.5); ALKALINE PHOSPHATASE 105 IU/L (46-116); ANION GAP 9 (8-16); ASPARTATE AMINO TRANSFERASE 22 U/L (10-37); BILIRUBIN,TOTAL 0.8 MG/DL (0.1-1.0); BLOOD UREA NITROGEN 22 MG/DL (7-18); BUN/CREATININE RATIO 24.4 (10.0-20.0); CALCIUM 8.6 MG/DL (8.5-10.1); CHLORIDE 103 MMOL/L (99-107); GLUCOSE 99 MG/DL (70-104); POTASSIUM 3.9 MMOL/L (3.5-5.1); SODIUM 139 MMOL/L (135-145); TOTAL CARBON DIOXIDE 26.6 MMOL/L (24-32); TOTAL PROTEIN 6.4 G/DL (6.4-8.2); eCRCL 68 ML/MIN; eGFR 82 ML/MIN
[2025-01-13 13:15] LABS: PRO BRAIN NATRIURETIC PEPTIDE 3018 PG/ML (0-450)
[2025-01-13 13:35] LABS: BILIRUBIN,URINE NEGATIVE (Neg); CLARITY,URINE CLOUDY (Clear); COLOR,URINE YELLOW (Yellow); GLUCOSE, URINE >=1000 mg/dl (Neg); KETONES,URINE 40 mg/dl (Neg); LEUKOCYTE ESTERASE ,URINE SMALL (Neg); NITRITES, URINE NEGATIVE (Neg); OCCULT BLOOD,URINE SMALL (Neg); PH,URINE 6.5 (4.8-8.0); PROTEIN,URINE TRACE mg/dl (Neg); UROBILINOGEN,URINE 0.2 E.U/dL (0.2-1.0)
[2025-01-13 13:48] LABS: UA COLLECTION TYPE URINAL
[2025-01-13] MEDS: diltiazem 5mg/ml 5ml inj. IV ONE (13:48)
[2025-01-13 13:49] LABS: BACTERIA,URINE 2+ /HPF (Neg); SQUAMOUS EPITHELIAL CELL,UR FEW /LPF (FEW); TRANSITIONAL EPI CELLS,URINE FEW /HPF; WBC,URINE TNTC /HPF (0-4)
[2025-01-13] MEDS: PERFLUTREN PROTEIN-A MICROSPHR (Optison) 0.22 MG/ML 3ML VIAL IV ONE (14:05)
[2025-01-13] MEDS ORDERED: potassium Cl 20 mEq SR tablet PO PRN ×2 (14:05)
[2025-01-13] MEDS ORDERED: mag hydrox/Alum hydrox/simeth 30ml oral suspension PO PRN (14:05)
[2025-01-13] MEDS ORDERED: magnesium hydroxide 30ml (MOM) UD suspension PO PRN (14:05)
[2025-01-13] MEDS ORDERED: ondansetron/PF 4mg/2ml inj IV PRN (14:05)
[2025-01-13] MEDS ORDERED: potassium Cl 40MEQ/1/2NS 520ml 520 ML IV PRN (14:05)
[2025-01-13] MEDS ORDERED: magnesium sulf-water 2g/50mL 50 ML IV PRN (14:05)
[2025-01-13] MEDS ORDERED: morphine 2 MG/ML inj. syringe IV PRN ×2 (14:05)
[2025-01-13] MEDS ORDERED: acetaminophen 325mg tablet PO PRN (14:05)
[2025-01-13] MEDS ORDERED: magnesium Cl slow-release 64mg tablet PO PRN (14:05)
[2025-01-13] MEDS ORDERED: magnesium sulf-water 4G/100mL 100 ML IV PRN (14:05)
--- NOTE | 2025-01-13 14:10 | Physician Documentation ---
History of Present Illness ~ Chief Complaint: Palpitations Stated Complaint: AFIB RVR Time Seen by MD: 12:13 Primary Medical Doctor: Mode of Arrival: EMS HPI 79 year old male with history of atrial fibrillation, sent by PCP office for elevated heart rate. The patient has a history of CHF, is on lasix, and feels fine. Denies chest pain, fevers, N/V/D. No changes in medications, no orthopnea reported. Medication Reconciliation Allergies: Coded Allergies: No Known Allergies (Unverified , 08/09/15) Scheduled Diltiazem HCl (Dilt-Xr), 240 MG PO DAILY Empagliflozin (Jardiance), 10 MG PO DAILY Furosemide (Lasix), 1 TAB PO DAILY Metoprolol Succinate (Metoprolol Succinate), 1 TAB PO DAILY, (Reported) Multivitamin (Multi Vitamin Daily), 1 TAB PO DAILY, (Reported) Warfarin Sodium (Warfarin Sodium), 1 TAB PO DAILY [B12 Folate], 800 MG PO DAILY, (Reported) Past Medical History Past Medical History: Atrial Fibrillation, Coronary Artery Disease, Hypertension, Diabetes Past Surgical History: noncontributory Alcohol Use: Sober Drug Use: none Lives with: Alone Lives In: Home Occupation: disabled, retired Review of Systems All Other Systems at this time: Reviewed and Negative Physical Exam Vital Signs: RN Vital Signs have been reviewed: Yes, Temperature: 98.3, Source: Oral, Heart Rate: 109, Respiratory Rate: 21, BP: 138/78, Pulse Oximetry: 98, Weight: 100.000 Oxygen Flow Rate: 0 Physical Exam HEENT: PERRL, moist oral mucosa, EOMI Pulmonary: No respiratory distress Cardiac: irregularly irregular tachycardia, no murmur, rub or gallop GI: nondistended, soft, nontender, no guarding, no rebound MSK: no deformity Skin: w/d/i, no rash; 1+ pitting edema to BLE Neuro: alert, nonfocal Psych: normal affect Progress Results/Orders Results/Orders Orders - KELLIE GRANT MD Chest,Single View (01/13/25 12:25) Monitor (01/13/25 12:09) Saline Lock (01/13/25 12:09) Oxygen (01/13/25 12:09) Hs Troponin I W Calculations (01/13/25 14:09) Hs Troponin I W Calculations (01/13/25 15:09) Page Hospitalist (01/13/25 ) Ceftriaxone/X7q-Uqeninmp 1gm (Rocephin 1 (01/13/25 13:50) Cult Urine + [place] [address] (01/13/25 13:50) Completed Orders - KELLIE GRANT MD Chest,Single View (01/13/25 12:25) Cbc/Diff (01/13/25 12:09) PBNP (01/13/25 12:09) Electrocardiogram (01/13/25 12:09) CMP (01/13/25 12:09) Hs Troponin I W Calculations (01/13/25 12:09) Diltiazem Iv (Cardizem Iv 5mg/Ml Inj.) (01/13/25 13:30) Ua W/Microscopic, Cult If Ind (01/13/25 13:27) Medications Received in ER Medications (Trade) Dose Ordered Sig/Ariella Route PRN Reason Start Time Stop Time Status Last Admin Dose Admin (Cardizem IV 5mg/ ml inj.) 10 mg ONCE ONCE IV 01/13/25 13:30 01/13/25 13:31 DC 01/13/25 13:48 10 MG Vital Signs 01/13/25 01/13/25 01/13/25 01/13/25 12:11 12:16 13:48 13:49 Temp 98.3 Pulse 129 130 130 Resp 25 20 27 B/P (MAP) 141/115 161/96 161/96 (117) Pulse Ox 99 98 O2 Flow Rate 0 0 01/13/25 13:52 Pulse 109 Resp 21 B/P (MAP) 138/78 (98) Laboratory Tests Test 01/13/25 12:21 01/13/25 13:27 White Blood Count 7.2 Red Blood Count 5.60 Hemoglobin 15.0 Hematocrit 46.0 Mean Corpuscular Volume 82.2 Mean Corpuscular Hemoglobin 26.8 L Mean Corpuscular Hemoglobin Concent 32.6 L Red Cell Distribution Width 15.8 H Platelet Count 294 Mean Platelet Volume 7.7 Neutrophils (%) (Auto) 73.7 Lymphocytes (%) (Auto) 14.0 L Monocytes (%) (Auto) 10.0 Eosinophils (%) (Auto) 1.2 Basophils (%) (Auto) 1.1 H Neutrophils # (Auto) 5.3 Lymphocytes # (Auto) 1.0 L Monocytes # (Auto) 0.7 Eosinophils # (Auto) 0.1 Basophils # (Auto) 0.1 CBC Comment Sodium Level 139 Potassium Level 3.9 Chloride Level 103 Carbon Dioxide Level 26.6 Anion Gap 9 Blood Urea Nitrogen 22 H Creatinine 0.90 Estimated GFR/1.73 m2 82 BUN/Creatinine Ratio 24.4 H Glucose Level 99 Calcium Level 8.6 Total Bilirubin 0.8 Aspartate Amino Transf (AST/SGOT) 22 Alanine Aminotransferase (ALT/SGPT) 26 Alkaline Phosphatase 105 Troponin I High Sensitivity 15 Pro-B-Type Natriuretic Peptide 3018 H Total Protein 6.4 Albumin 3.4 Globulin 3.0 Albumin/Globulin Ratio 1.1 Chemistry Comments Urine Specimen Description Urinal Urine Color Yellow Urine Clarity Cloudy Urine pH 6.5 Urine Specific [place] 1.015 Urine Protein Trace Urine Glucose (UA) >=1000 H Urine Ketones 40 H Urine Occult Blood Small Urine Nitrite Negative Urine Bilirubin Negative Urine Urobilinogen 0.2 Urine Leukocyte Esterase Small H Urine RBC 10-20 Urine WBC Tntc H Urine Squamous Epithelial Cells Few Urine Transitional Epithelial Cells Few Urine Bacteria 2+ Urine Culture Indicated Indicated Volume Urine Centrifuged 10 ml Urine Comment EKG/XRAY/CT/US/VASC/MRI EKG : EKG Rate: 134 EKG: a fib Additional Comment My interpretation: atrial fibrillation with RVR, no STEMI criteria, interventricular conduction delay Chest X-Ray : Interpreted By: self Views: 1 VIEW Indication: other Lungs: pulmonary edema, effusion Mediastinum: normal Ribs/Bones: normal Abdomen: normal Impression: CHF Medical Decision Making Differential Dx:Considerations: Include: angina / [place], atrial fibrillation, atrial flutter Differential Dx:Considerations: Include electrolyte disorder, Include hypoxia, Include pulmonary embolus, Include renal failure Additional Information Ddx includes CHF exacerbation, UTI, pneumonia Departure Disposition: ADMITTED INPATIENT Admitted to Inpatient Unit: to hospitalist Admission Level of Care: Med/Surg Impression: Primary Impression: Atrial fibrillation with RVR Additional Impressions: UTI (urinary tract infection) Pleural effusion Referrals: NO PRIMARY CARE PROVIDER (PCP) Education Educated: Patient Educated regarding: diagnosis, treatment, prognosis, need for follow up Signature Scribe Signature: . Attestation: . KELLIE GRANT MD January 13, 2025 14:10
[2025-01-13] MEDS: CefTRIAXone/D5W-Rocephin 1gm 50 ML IV ONE (14:38)
[2025-01-13] MEDS: furosemide 20 MG/2 ML vial IV ONE (14:39)
[2025-01-13] MEDS: metoprolol tartrate 1mg/ml inj IV SCH (15:34)
[2025-01-13 15:39] LABS: INR 3.5 INR; PROTHROMBIN TIME 31.4 SECONDS (9.0-12.0)
[2025-01-13] MEDS: amiodarone 150mg/dext, iso-os 100 ML IV ONE (18:05)
--- NOTE | 2025-01-13 18:34 | HISTORY AND PHYSICAL-Residence ---
History & Physical Providers to CC Resident Creating Document: EMILY MONTESLUIS EDUARDO RAO CC: CONCEPCION PHILLIP MD ~ History of Present Illness Primary Medical Doctor: MONSERRAT Hammonds Reason for Admit\Complaint: Abnormal vitals History of Present Illness Patient is a 79-year-old male with history of atrial fibrillation, type 2 diabetes, CHF, hypertension, and hyperlipidemia who came to the ED due to fast heart rate. Patient reports that today he went to his primary care doctor for routine follow up, and while taking his vital signs it was noticed that his heart rate was up to 140 beats per minute reason why patient was sent to the ER. Patient denies any symptoms at all including palpitations, chest pain, lightheadedness, dizziness, nausea or any other symptoms. He does report that he has a longstanding history of shortness of breaths which usually happens on exertion, he states he can walk about 1 or 2 blocks before having to stop to catch his breath. He states that 3 days ago he had a short lasted episode of shortness of breath at rest. He used to be a patient of Dr. Cory edwards, but has not seen him in 5 years. Allergies: Coded Allergies: No Known Allergies (Unverified , 08/09/15) Home Medications Home Medications Active Warfarin Sodium 5 Mg Tablet 1 Tab PO DAILY 30 Days Lasix (Furosemide) 40 Mg Tablet 1 Tab PO DAILY 30 Days Jardiance (Empagliflozin) 10 Mg Tablet 10 Mg PO DAILY Dilt-Xr (Diltiazem HCl) 120 Mg Capsule.cr 240 Mg PO DAILY Reported Metoprolol Succinate 50 Mg Tab.sr.24h 1 Tab PO DAILY Multi Vitamin Daily (Multivitamin) 1 Each Tablet 1 Tab PO DAILY 30 Days [B12 Folate] 800 Mg PO DAILY Past Medical History Past Medical History Atrial fibrillation, type 2 diabetes, CHF, hypertension, and hyperlipidemia Past Surgical History Surgical History Comment Left tibia fracture repair in 1988 Past Social History Smoking: Non-Smoker Alcohol Use: None Drug Use: None Lives with: Alone Lives In: Home 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 Faint bilateral basal crackles. No wheezing or rhonchi Heart: Irregular Rate and rhythm, variable S1 and S2 without murmur, rub or gallop Abdomen: Soft and non tender no organomegaly, no guarding and rigidity, bowel sounds present Neuro: No weakness in the upper and lower limb muscles, power of the muscles 5/5 bilateral upper and lower muscles, knee reflex present bilaterally. Cranial nerves intact Extremities: Left 2nd toe he is covered with clean dressing. No cyanosis,clubbing or edema Skin: Warm and Dry. No lesions Diagnostic Data Last Recorded Lab Results: 01/13/25 1221 01/13/25 1221 Diagnostic Data: Laboratory Tests Test 01/13/25 15:00 Prothrombin Time 31.4 SECONDS (9.0-12.0) H INR International Normalized Ratio 3.5 INR Coagulation Comments Advance Care Planning Advanced Care plannin - 30 Minutes Additional Plan Patient is a 79-year-old male with history of atrial fibrillation, type 2 diabetes, CHF, hypertension, and hyperlipidemia who came to the ED due to fast heart rate. Admitted for evaluation and management of atrial fibrillation with RVR. Atrial fibrillation with RVR Acute on chronic heart failure with preserved ejection fraction Small left pleural effusion Hypertension EKG shows AFib with RVR with a heart rate of 130 beats per minute, wide QRS complexes and left axis deviation. With T-wave inversions in V1 through V4. Similar EKG from 2023 ProBNP: 3018, troponins are negative Chest x-ray shows: The cardiac silhouette is enlarged. The lungs demonstrate bilateral patchy airspace opacities, most pronounced within the left lower lobe. The pulmonary vasculature is prominent. Small to moderate left pleural effusion. Aortic atherosclerotic disease. There is no pneumothorax. Old distal left clavicular fracture deformity. Echocardiogram from October of this year shows LV is normal in size with mild to moderate concentric hypertrophy. Overall systolic function appears preserved. Apical septum appears hypokinetic. Overall LVEF is 60%. RV appears mildly dilated with normal contractility. RVSP is estimated at 63 mmHG. Trivial pleural effusion Received single dose of Cardizem IV in ED, followed by 2 doses of IV metoprolol 5 mg, without improvement Will start amiodarone drip Continue metoprolol succinate, increased to 100 mg daily IV Lasix 60 mg once given, continue 40 mg daily Continue warfarin Continue Jardiance Will optimize GDMT when stable Dr Burnett consulted. Awaiting further recommendations Hyperlipidemia No statins on med rec. Will obtain lipid panel Type 2 diabetes Continue Jardiance Pending A1c Left 2nd toe diabetic wound Wound care consulted Code Status: Full code DVT prophylaxis: Warfarin Analgesia/sedation: Morphine Nutrition: Carb controlled PT: Ordered Prognosis: Guarded Disposition: Admit to PCU with tele monitoring. Continue medical management Luis Eduardo Montes MD Internal Medicine Resident PGY-1 Date of Service: January 13, 2025 Billing Provider: CONCEPCION PHILLIP MD, LEONARDO LUIS January 13, 2025 18:34
[2025-01-13] MEDS: amiodarone/D5 360MG/200ML BAG 200 ML IV SCH (19:16)
[2025-01-13] MEDS: K and/or MAG REPLACEMENT MC SCH (19:18)
[2025-01-13 19:23] LABS: HEMOGLOBIN A1C 7.4 % (4.5-6.2)
[2025-01-13 19:28] LABS: CHOL/HDL RATIO 3.1 (0.00-4.99); CHOLESTEROL 159 MG/DL (0-200); HDL CHOLESTEROL 51 MG/DL (35-60); LDL CHOLESTEROL 93 MG/DL (50-100); THYROID STIMULATING HORMONE 1.39 ulU/ml (0.34-4.50); TRIGLYCERIDES 54 MG/DL (20-135)
[2025-01-13] MEDS: docusate sod 100mg capsule PO SCH (20:00)
[2025-01-14] VITALS (16 sets, daily range): BP systolic 112–155; BP diastolic 66–120; PULSE 99–129; RESP 18–27; TEMP 97.7–98.3; O2SAT 96–99
[2025-01-14 06:24] LABS: BASOPHILS # (AUTO) 0.1 X10'3 (0-0.2); BASOPHILS % (AUTO) 1.5 % (0-1); EOSINOPHILS # (AUTO) 0.1 X10'3 (0-0.9); EOSINOPHILS % (AUTO) 1.5 % (0-6); HEMATOCRIT 44.5 % (42.0-52.0); HEMOGLOBIN 14.5 g/dl (14.0-17.9); LYMPHOCYTES # (AUTO) 1.4 X10'3 (1.1-4.8); LYMPHOCYTES % (AUTO) 19.3 % (21-51); MEAN CORPUSCULAR HEMOGLOBIN 26.7 PG (27.0-31.0); MEAN CORPUSCULAR HGB CONC 32.6 g/dL (33.0-36.5); MEAN PLATELET VOLUME 7.8 FL (7.4-10.4); MONOCYTES # (AUTO) 0.8 X10'3 (0-0.9); MONOCYTES % (AUTO) 11.9 % (2-12); NEUTROPHILS # (AUTO) 4.7 X10'3 (1.8-7.7); NEUTROPHILS % (AUTO) 65.8 % (42-75); PLATELET COUNT 280 X10'3 (140-440); RED BLOOD COUNT 5.43 X10'6 (4.70-6.10); RED CELL DISTRIBUTION WIDTH 15.9 % (11.5-14.5); WHITE BLOOD COUNT 7.1 X10'3 (4.5-11.0)
[2025-01-14 06:33] LABS: PROTHROMBIN TIME 37.9 SECONDS (9.0-12.0)
[2025-01-14 06:36] LABS: ALANINE AMINOTRANSFERASE 23 U/L (12-78); ALBUMIN 3.1 G/DL (3.4-5.0); ALBUMIN/GLOBULIN RATIO 1.1 (1.1-1.5); ALKALINE PHOSPHATASE 93 IU/L (46-116); ANION GAP 9 (8-16); ASPARTATE AMINO TRANSFERASE 20 U/L (10-37); BILIRUBIN,TOTAL 0.4 MG/DL (0.1-1.0); BLOOD UREA NITROGEN 21 MG/DL (7-18); BUN/CREATININE RATIO 23.1 (10.0-20.0); CALCIUM 8.5 MG/DL (8.5-10.1); CHLORIDE 103 MMOL/L (99-107); CREATININE 0.91 MG/DL (0.60-1.10); GLUCOSE 111 MG/DL (70-104); MAGNESIUM 2.1 MG/DL (1.5-2.4); POTASSIUM 3.5 MMOL/L (3.5-5.1); SODIUM 141 MMOL/L (135-145); TOTAL PROTEIN 5.9 G/DL (6.4-8.2); eCRCL 67 ML/MIN; eGFR 81 ML/MIN
[2025-01-14 06:38] LABS: INR 4.3 INR
[2025-01-14] MEDS ORDERED: glucagon, human recombinant 1mg kit SUBCUT PRN (07:40)
[2025-01-14] MEDS ORDERED: DEXTROSE 15 GM of carb/4 tabs (each vial/BOTTLE has 4 tablets) PO PRN ×2 (07:40)
[2025-01-14] MEDS ORDERED: dextrose 50%-water 50ml dispensing syringe IV PRN ×2 (07:40)
[2025-01-14] MEDS: PERFLUTREN PROTEIN-A MICROSPHR (Optison) 0.22 MG/ML 3ML VIAL IV ONE (07:40)
[2025-01-14] MEDS ORDERED: warfarin 5mg tablet PO SCH (08:00)
[2025-01-14] MEDS ORDERED: metoprolol succinate 25mg (24-HOUR) SR. Tablet PO SCH (08:00)
[2025-01-14] MEDS: metoprolol succinate 25mg (24-HOUR) SR. Tablet PO SCH (08:00)
[2025-01-14] MEDS: furosemide 40mg/4ml inj IV SCH (08:01)
[2025-01-14] MEDS: CefTRIAXone/D5W-Rocephin 1gm 50 ML IV SCH (08:01)
[2025-01-14] MEDS: EMPAGLIFLOZIN 10 MG TABLET PO SCH (08:01)
--- NOTE | 2025-01-14 11:08 | PROGRESS NOTE- Residence ---
Progress Note - Resident Providers to CC Resident Creating Document: LUIS EDUARDO MCFADDEN CC: CONCEPCION PHILLIP MD ~ Antibiotic Timeout Antibiotic Ordered?: Yes Subjective Patient was seen at bedside today. Patient remains asymptomatic. Denies any chest pain, significant shortness of breath, he states he does not feel palpitations, no fevers or chills Objective Vital Signs Date Time Temp Pulse Resp B/P (MAP) Pulse Ox O2 Delivery O2 Flow Rate FiO2 01/14/25 06:30 123 01/14/25 06:00 97.8 27 154/115 (128) 96 Room Air 01/13/25 15:00 0 01/13/25 15:00 N/A Result Diagram: 01/14/25 0540 01/14/25 0540 General: awake, alert oriented to place, time, and person HEENT: No pallor present, no icterus, moist mucous membranes Neck: No masses and tenderness Resp: Unlabored. Faint bilateral basal crackles, more predominantly on the left. No wheezing or rhonchi Heart: Irregular Rate and rhythm, variable S1 and S2 without murmur, rub or gallop Abdomen: Soft and non tender no organomegaly, no guarding and rigidity, bowel sounds present Neuro: No weakness in the upper and lower limb muscles, power of the muscles 5/5 bilateral upper and lower muscles, knee reflex present bilaterally. Cranial nerves intact Extremities: Left 2nd toe he is covered with clean dressing. No cyanosis,clubbing or edema Skin: Warm and Dry. No lesions Coagulation Studies Laboratory Tests Test 01/14/25 05:40 Prothrombin Time 37.9 SECONDS (9.0-12.0) H INR International Normalized Ratio 4.3 INR *H Coagulation Comments Assessment Assessment Patient is a 79-year-old male with history of atrial fibrillation, type 2 diabetes, CHF, hypertension, and hyperlipidemia who came to the ED due to fast heart rate. Admitted for evaluation and management of atrial fibrillation with RVR. Plan Plan Atrial fibrillation with RVR Acute on chronic heart failure with preserved ejection fraction Left pleural effusion Pericardial effusion Hypertension EKG shows AFib with RVR with a heart rate of 130 beats per minute, wide QRS complexes and left axis deviation. With T-wave inversions in V1 through V4. Similar EKG from 2023 ProBNP: 3018, troponins are negative, TSH is normal Chest x-ray shows: The cardiac silhouette is enlarged. The lungs demonstrate bilateral patchy airspace opacities, most pronounced within the left lower lobe. The pulmonary vasculature is prominent. Small to moderate left pleural effusion. Aortic atherosclerotic disease. There is no pneumothorax. Old distal left clavicular fracture deformity. Echocardiogram from October of this year shows LV is normal in size with mild to moderate concentric hypertrophy. Overall systolic function appears preserved. Apical septum appears hypokinetic. Overall LVEF is 60%. RV appears mildly dilated with normal contractility. RVSP is estimated at 63 mmHG. Trivial pleural effusion Received single dose of Cardizem IV in ED, followed by 2 doses of IV metoprolol 5 mg, without improvement Continue amiodarone drip Continue metoprolol succinate, increased to 100 mg daily Will give single dose of IV cardizem 10mg now, will continue po cardizem Continue lasix 40 mg IV daily Warfarin being held due to significantly increased INR to 4.3 Continue Jardiance Will optimize GDMT when stable Hyperlipidemia No statins on med rec. LDL 93. Goal <70 Will start atorvastatin 20 Type 2 diabetes Continue Jardiance A1C: 7.4 Left 2nd toe diabetic wound Continue wound care UTI, possible prostatitis Continue Rocephin, D2 Code Status: Full code DVT prophylaxis: Warfarin Analgesia/sedation: Morphine Nutrition: Carb controlled PT: Ordered Prognosis: Guarded Disposition: Admit to PCU with tele monitoring. Continue medical management Luis Eduardo Rosa MD Internal Medicine Resident PGY-1 Date of Service: January 14, 2025 Billing Provider: CONCEPCION PHILLIP MD, LEONARDO LUIS January 14, 2025 11:08
[2025-01-14] MEDS: diltiazem 5mg/ml 5ml inj. IV ONE ×2 (11:22→19:55)
[2025-01-14] MEDS: INSULIN LISPRO 100 UNIT/ML INSULN.PEN MULTI-DOSE SQ SCH (12:59)
--- NOTE | 2025-01-14 18:10 | CARDIOLOGY REPORT ---
APPROVED REPORT EXAM: Limited 2D, Doppler, and color-flow Echocardiogram. Patient Location: 302 Blood Pressure: 154/115 mmHg Heart Rate: 110 bpm Indications Congestive Heart Failure Atrial Fibrillation RVR Pericardial Effusion PRO BNP: 3018 PACKAGING ENGINEER: Ryan Burnett MD Previous ECHO: 11/05/24, [facility], SS, EF: 60; RVSP: 63 2D Dimensions IVSd 1.1 (0.7-1.1cm) LVDd 5.4 cm PWd 0.9 (0.7-1.1cm) IVSs 1.1 (0.8-1.2cm) LVDs 4.2 (2.5-4.0cm) PWs 1.3 (0.8-1.2cm) LVOT Diameter 1.42 (1.8-2.4cm) LVEF(%) 44.9 (>50%) FS (%) 22.5 % SV 63.0 ml CO 7.8 L/min M-Mode Dimensions Left Atrium(MM) 4.61 (2.5-4.0cm) Aortic Root 3.70 (2.2-3.7cm) Aortic Cusp Exc 1.92 (1.5-2.0cm) MV EPSS 1.1 (<0.5cm) Aortic Valve AoV Peak Eliceo. 107.9 cm/s AO Peak GR. 4.7 mmHg Tricuspid Valve TR P. Velocity 296 cm/s RAP ESTIMATE 10 mmHg TR Peak Gr. 35 mmHg RVSP 45 mmHg LEFT VENTRICLE Normal LV size and wall thickness. Overall systolic function is moderately decreased. There is modera te LV systolic dysfunction present. Overall LVEF is above 45% decreased from previous echo of 60%. H owever patient is in AFib but now. RIGHT VENTRICLE Right ventricle is mildly dilated with adequate function. PA systolic pressure of 45 mm of mercury ATRIA Left atrium is moderately dilated. Unchanged from previous echo. AORTIC VALVE Trileaflet AV appears mildly sclerotic without stenosis. No insufficiency. Unchanged from previous ec ho. MITRAL VALVE Mitral valve leaflets are mildly thickened with mild annular calcification. No stenosis. Trace regurg itation. Unchanged from previous echo. TRICUSPID VALVE The tricuspid valve is normal in structure with mild to moderate regurgitation. Unchanged from previo us echo. PULMONIC VALVE The pulmonary valve is normal in structure with physiologic insufficiency. GREAT VESSELS The aortic root is normal in size. IVC is normal in size. PERICARDIUM Trivial loculated pericardial effusion present without hemodynamic compromise.. Pleural effusion pres ent. Other Information Study Quality: Adequate Conclusion There is moderate LV systolic dysfunction present. Overall LVEF is above 45% decreased from previous echo of 60%. However patient is in AFib but now. Right ventricle is mildly dilated with adequate function. PA systolic pressure of 45 mm of mercury Left atrium is moderately dilated. Unchanged from previous echo. Mitral valve leaflets are mildly thickened with mild annular calcification. No stenosis. Trace regu rgitation. Unchanged from previous echo. The tricuspid valve is normal in structure with mild to moderate regurgitation. Unchanged from previ ous echo. The pulmonary valve is normal in structure with physiologic insufficiency. Trivial loculated pericardial effusion present without hemodynamic compromise..
[2025-01-14] MEDS: metoprolol tartrate 50mg tablet PO ONE (19:54)
--- NOTE | 2025-01-14 22:04 | CONSULTATION ---
DATE OF CONSULTATION: 01/14/2025 DICTATING PHYSICIAN: LETHA Burnett MD CARDIOLOGY CONSULTATION REQUESTING PHYSICIAN: Luis Eduardo Rosa MD PLUMBING ASSEMBLER INSTALLER: LETHA Burnett MD IDENTIFICATION: A 79-year-old with AFib with RVR, CHF, and CAD. HISTORY OF PRESENT ILLNESS: The patient is a 79-year-old male with hypertension, hyperlipidemia, diabetes, CAD, CHF, AFib. Now, he has been hospitalized. The patient was hospitalized on 01/13/2025 with AFib with RVR and CHF, and a cardiology consult was requested. His cardiac history dates back to 07/07/2020 when he had a cardiac catheterization following an abnormal myocardial perfusion scan. At that time, his LVEF was 55-60% with LVEDP at 13 mmHg with no gradient across the aortic valve. Pulmonary capillary wedge pressure was 19 mmHg. His mid LAD was 100% occluded, chronic, could not be recanalized by antegrade approach. He had ubnd-km-vxgk as well as slinr-ah-lzuo collaterals. Circumflex has minimal luminal irregularities, diagonal to 30% narrowing, mid RCA dominant 30% narrowing. He was recommended for [facility], which the patient declined. He was recommended EECP, which he has not done. Subsequently, he has been lost for followup. Most of the patient's memory appears to be not very accurate, and most of the story is obtained from his sister, Tea, telephone number [phone]. The patient is a single male. He lives alone. His sister lives in town. 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 He was hospitalized at [facility] from 02/29/2024 to 03/04/2024. He was in AFib at that time. Rate was controlled. He was on amiodarone and metoprolol. Rate converted to normal sinus rhythm. At that time, his ejection fraction was about 70% with systolic of 27 mmHg. The patient was discharged home. Apparently, since then, the patient has not been taking care of himself as well. According to his sister, he discontinued some of his medications, including diabetic medication for some time. The patient was hospitalized again at [facility] from 11/05/2024 to 11/08/2024, and at that time again, he had CHF, AFib with RVR, and at that time subsequently he was discharged home. Apparently, he was in normal sinus rhythm at that time. His Eliquis was converted to Coumadin, which is followed by his PMD, Genie Zhang. The patient generally ambulates around the house. He can walk up to 1-2 blocks. Mild dyspnea on exertion. He denies any chest pain. No ankle swelling. MEDICATIONS AT HOME: Include warfarin 5 mg p.o. daily, Lasix 40 mg p.o. daily, Jardiance 10 mg p.o. daily, Cardizem CD 240 mg p.o., daily, metoprolol 50 mg p.o. daily, and multivitamin. PAST MEDICAL HISTORY: * Diabetes. * Hypertension. * Hyperlipidemia. * PAF. * Diastolic heart failure. PAST SURGICAL HISTORY: Left tibial fracture repair in 1988. FAMILY HISTORY: Father at age 64 because of cancer. Mother at age 51 because of liver disease. SOCIAL HISTORY: No history of tobacco use. No history of fall. The patient used to drink alcohol occasionally. No history of substance use. REVIEW OF SYSTEMS: HEENT: Uses reading glasses. No hearing impairment. RESPIRATORY: Mild exertional shortness of breath. MUSCULOSKELETAL: Arthralgia. CENTRAL NERVOUS SYSTEM: No stroke, TIA or seizures. PSYCHIATRIC: History of depression. SKIN: None. ENDOCRINE: None. PHYSICAL EXAMINATION: GENERAL: The patient is conscious and alert. VITAL SIGNS: Temperature 98.3. The patient is still in AFib with RVR 114-120 per minute. Blood pressure 131/96. NECK: No JVD. Carotids equally well felt. CARDIAC: Irregularly irregular rate and rhythm. S1 and S2 normal. No S3 or S4. Short systolic murmur in the aortic area. LUNGS: Decreased breath sounds _ left basal crackles present. ABDOMEN: Soft. Bowel sounds present. No hepatosplenomegaly. EXTREMITIES: No edema. LABORATORY DATA: Platelet count was 280. Sodium 141, potassium 3.5, chloride 103, carbon dioxide 29, BUN 21, creatinine 0.91. ProBNP was 3018. DIAGNOSTIC DATA: Chest x-ray showed cardiomegaly with [id number]-rh-[id number] left pleural effusion. Echocardiogram from 01/02/2025 showed moderate LV systolic dysfunction, decreased to 45% from ____. PA systolic was 45 mmHg. ASSESSMENT AND PLAN: * A 79-year-old male with AFib with RVR. The patient is currently on IV amiodarone, Cardizem, and metoprolol. He is anticoagulated. His INR is 4.3 and the patient was in normal sinus some few weeks ago. Option of cardioversion, risks, benefits, and alternatives discussed with the patient. The patient agrees and would like to proceed with same. We will schedule for tomorrow. * History of moderate LV systolic dysfunction with CHF. Recommend GDMT. The patient is on metoprolol and Jardiance. Could consider HANNAH/ARB and spironolactone. Recommend at least adding spironolactone 25 mg p.o. daily. Watch his potassium level. * CAD with occluded mid LAD with collateralization. Continue medical therapy. Recommend EECP. The patient recommended to follow up with our office. Spoke with his sister about this as well. * Diabetes, hypertension, and hyperlipidemia. Extensively counseled on keeping the hemoglobin A1c less than 7%, LDL less than 55 mg%, systolic blood pressure less than 130 mmHg. LETHA Burnett MD TID: [id number] RECEIPT: [id number] cc: MECHE Hammonds
[2025-01-15] VITALS (23 sets, daily range): BP systolic 96–157; BP diastolic 64–118; PULSE 58–122; RESP 17–30; TEMP 97.2–98.1; O2SAT 91–99
[2025-01-15 05:32] LABS: BASOPHILS # (AUTO) 0.1 X10'3 (0-0.2); BASOPHILS % (AUTO) 1.1 % (0-1); EOSINOPHILS # (AUTO) 0.1 X10'3 (0-0.9); EOSINOPHILS % (AUTO) 1.5 % (0-6); HEMOGLOBIN 15.2 g/dl (14.0-17.9); LYMPHOCYTES # (AUTO) 1.1 X10'3 (1.1-4.8); MEAN CORPUSCULAR HEMOGLOBIN 26.9 PG (27.0-31.0); MEAN CORPUSCULAR HGB CONC 33.1 g/dL (33.0-36.5); MEAN CORPUSCULAR VOLUME 81.3 FL (78-98); MEAN PLATELET VOLUME 7.6 FL (7.4-10.4); MONOCYTES # (AUTO) 0.8 X10'3 (0-0.9); MONOCYTES % (AUTO) 9.8 % (2-12); NEUTROPHILS # (AUTO) 6.3 X10'3 (1.8-7.7); NEUTROPHILS % (AUTO) 74.6 % (42-75); PLATELET COUNT 278 X10'3 (140-440); RED BLOOD COUNT 5.66 X10'6 (4.70-6.10); RED CELL DISTRIBUTION WIDTH 15.9 % (11.5-14.5); WHITE BLOOD COUNT 8.4 X10'3 (4.5-11.0)
[2025-01-15 05:38] LABS: INR 3.6 INR
[2025-01-15 06:24] LABS: ALANINE AMINOTRANSFERASE 24 U/L (12-78); ALKALINE PHOSPHATASE 97 IU/L (46-116); ANION GAP 11 (8-16); ASPARTATE AMINO TRANSFERASE 20 U/L (10-37); BILIRUBIN,TOTAL 0.4 MG/DL (0.1-1.0); BLOOD UREA NITROGEN 24 MG/DL (7-18); BUN/CREATININE RATIO 22.4 (10.0-20.0); CALCIUM 8.9 MG/DL (8.5-10.1); CHLORIDE 103 MMOL/L (99-107); CREATININE 1.07 MG/DL (0.60-1.10); GLUCOSE 176 MG/DL (70-104); MAGNESIUM 2.2 MG/DL (1.5-2.4); POTASSIUM 3.6 MMOL/L (3.5-5.1); SODIUM 141 MMOL/L (135-145); TOTAL CARBON DIOXIDE 27.4 MMOL/L (24-32); eCRCL 57 ML/MIN; eGFR 67 ML/MIN
[2025-01-15] MEDS: diltiazem CD 120mg capsule (once-daily) PO SCH (07:16)
[2025-01-15] MEDS: atorvastatin 20mg tablet PO SCH (07:16)
[2025-01-15] MEDS: lisinopril 5mg tablet PO SCH (07:32)
--- NOTE | 2025-01-15 08:20 | ELECTROCARDIOGRAPH REPORT ---
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 LETHA Carlos Measurements Intervals [place] Rate: 121 P: 0 SD: 0 QRS: -85 QRSD: 156 T: -12 QT: 398 QTc: 565 Interpretive Statements Atrial fibrillation Right bundle branch block Inferior infarct, old Anterior infarct, age indeterminate Electronically Signed On 01-16-2025 15:06:[address] LETHA Carlos Please click the below link to view image of tracing.
--- NOTE | 2025-01-15 08:57 | ELECTROCARDIOGRAPH REPORT ---
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 LETHA Carlos Measurements Intervals [place] Rate: 69 P: 47 RI: 173 QRS: -90 QRSD: 160 T: 0 QT: 494 QTc: 530 Interpretive Statements Sinus rhythm Multiform ventricular premature complexes Right bundle branch block Inferior infarct, old Anterior infarct, age indeterminate Electronically Signed On 01-16-2025 15:06:[address] LETHA Carlos Please click the below link to view image of tracing.
[2025-01-15] MEDS: MIDAZolam 1mg/ml 10ml vial IV ONE (09:53)
[2025-01-15] MEDS: morphine 10mg/ml inj. IV ONE (09:54)
[2025-01-15] MEDS: amiodarone 200mg tablet PO SCH (10:46)
[2025-01-15] MEDS: spironolactone 25 MG tablet PO SCH (10:50)
--- NOTE | 2025-01-15 11:30 | PROGRESS NOTE- Residence ---
Progress Note - Resident Providers to CC Resident Creating Document: LUIS EDUARDO MCFADDEN CC: CONCEPCION PHILLIP MD ~ Antibiotic Timeout Antibiotic Ordered?: Yes Subjective Patient was seen at bedside today. Patient remains asymptomatic. Denies any chest pain, significant shortness of breath, he states he does not feel palpitations, no fevers or chills Objective Vital Signs Date Time Temp Pulse Resp B/P (MAP) Pulse Ox O2 Delivery O2 Flow Rate FiO2 01/15/25 10:50 116 01/15/25 06:00 150/105 (120) 01/15/25 02:00 97.9 18 98 Room Air 01/13/25 15:00 0 01/13/25 15:00 N/A Result Diagram: 01/15/25 0509 01/15/25 0509 General: awake, alert oriented to place, time, and person HEENT: No pallor present, no icterus, moist mucous membranes Neck: No masses and tenderness Resp: Unlabored. Faint bilateral basal crackles, more predominantly on the left. No wheezing or rhonchi Heart: Irregular Rate and rhythm, variable S1 and S2 without murmur, rub or gallop Abdomen: Soft and non tender no organomegaly, no guarding and rigidity, bowel sounds present Neuro: No weakness in the upper and lower limb muscles, power of the muscles 5/5 bilateral upper and lower muscles, knee reflex present bilaterally. Cranial nerves intact Extremities: Left 2nd toe he is covered with clean dressing. No cyanosis,clubbing or edema Skin: Warm and Dry. No lesions Coagulation Studies Laboratory Tests Test 01/15/25 05:09 Prothrombin Time 33.0 SECONDS (9.0-12.0) H INR International Normalized Ratio 3.6 INR Coagulation Comments Assessment Assessment Patient is a 79-year-old male with history of atrial fibrillation, type 2 diabetes, CHF, hypertension, and hyperlipidemia who came to the ED due to fast heart rate. Admitted for evaluation and management of atrial fibrillation with RVR. Plan Plan Atrial fibrillation with RVR s/p cardioversion, resolved Acute on chronic heart failure with reduced ejection fraction History of CAD Possible ischemic cardiomyopathy Left pleural effusion Trivial loculated pericardial effusion Hypertension EKG shows AFib with RVR with a heart rate of 130 beats per minute, wide QRS complexes and left axis deviation. With T-wave inversions in V1 through V4. Similar EKG from 2023 ProBNP: 3018, troponins are negative, TSH is normal Chest x-ray shows: The cardiac silhouette is enlarged. The lungs demonstrate bilateral patchy airspace opacities, most pronounced within the left lower lobe. The pulmonary vasculature is prominent. Small to moderate left pleural effusion. Aortic atherosclerotic disease. There is no pneumothorax. Old distal left clavicular fracture deformity. Echocardiogram yesterday showed moderate LV systolic dysfunction present. Overall LVEF is above 45% decreased from previous echo of 60%. However patient is in AFib now. Right ventricle is mildly dilated with adequate function. PA systolic pressure of 45 mm of mercury. Left atrium is moderately dilated. Unchanged from previous echo. Trivial loculated pericardial effusion present without hemodynamic compromise. Dr. Burnett was consulted who recommended - Cardioversion, which patient underwent this morning satisfactorily - start p.o. amiodarone with overlapping amiodarone drip until bag is finished. Continue p.o. amiodarone 200 mg b.i.d. for 1 week, then 200 mg daily - DC p.o. Cardizem - increase metoprolol succinate to 100 mg b.i.d. - optimize GDMT, we will start lisinopril and spironolactone - Continue lasix 40 mg IV daily - Continue Jardiance - follow up with Dr. Burnett outpatient Warfarin being held due to significantly increased INR, 3.6 today Hyperlipidemia No statins on med rec. LDL 93. Goal <70 Continue atorvastatin 20 Type 2 diabetes Continue Jardiance A1C: 7.4 Blood glucose stable Left 2nd toe diabetic wound Continue wound care UTI, possible prostatitis Continue Rocephin, D3 Code Status: Full code DVT prophylaxis: Warfarin Analgesia/sedation: Morphine Nutrition: Carb controlled PT: Ordered Prognosis: Guarded Disposition: Continue care in PCU with tele monitoring. Continue medical management. Anticipated discharge tomorrow Luis Eduardo Rosa MD Internal Medicine Resident PGY-1 Date of Service: January 15, 2025 Billing Provider: CONCEPCION PHILLIP MD, LEONARDO LUIS January 15, 2025 11:30
--- NOTE | 2025-01-15 17:14 | PROGRESS NOTE ---
Progress Note Cardiology Providers to CC ~ Subjective Subjective Patient seen and examined today. Underwent successful electrical cardioversion converted to normal sinus rhythm. Objective Result Diagram: 01/15/25 0509 01/15/25 0509 Objective General: Normal body habitus, no acute distress, HEENT: Sclerae clear, PERRL, gums without lesions or bleeding, oropharynx clear without erythema or exudate. Neck: Supple without enlargement of the thyroid, or lymphadenopathy, Chest: Normal size and shape, no tenderness, nonlabored breathing, Breath sounds diminished but improved Heart: Regular in rate and rhythm, S1 and S2 normal, no S3-S4 or murmurs. Abdomen: Soft, nontender, no organomegaly, bowel sounds present. Extremities: No edema cyanosis or clubbing. Coagulation Studies Laboratory Tests Test 01/15/25 05:09 Prothrombin Time 33.0 SECONDS (9.0-12.0) H INR International Normalized Ratio 3.6 INR Coagulation Comments Problem\Assessment\Plan Additional Plan 1 * A 79-year-old male with AFib with RVR. The patient is currently on IV amiodarone, Cardizem, and metoprolol. He is anticoagulated. Patient underwent successful electrical cardioversion on 01/16/2020 five Recommend stopping IV amiodarone and after the bag is done DC p.o. Cardizem make a switch to oral beta blockers alone. Discussed with resident physician 2. * History of moderate LV systolic dysfunction with CHF. Recommend GDMT. The patient is on metoprolol and Jardiance. Could consider HANNAH/ARB and spironolactone. Recommend at least adding spironolactone 25 mg p.o. daily. Watch his potassium level. Titrate diuretics as required. 3. * CAD with occluded mid LAD with collateralization. Continue medical therapy. Recommend EECP. The patient recommended to follow up with our office. Spoke with his sister about this as well. 4. * Diabetes, hypertension, and hyperlipidemia. Extensively counseled on keeping the hemoglobin A1c less than 7%, LDL less than 55 mg%, systolic blood pressure less than 130 mmHg. VALARIE CARLOS MD January 15, 2025 17:14
[2025-01-15] MEDS: metoprolol succinate 25mg (24-HOUR) SR. Tablet PO SCH (21:53)
[2025-01-16] VITALS (7 sets, daily range): BP systolic 102–127; BP diastolic 64–84; PULSE 54–86; RESP 13–26; TEMP 96.8–98.2; O2SAT 95–100
[2025-01-16 05:58] LABS: BASOPHILS # (AUTO) 0.1 X10'3 (0-0.2); BASOPHILS % (AUTO) 1.1 % (0-1); EOSINOPHILS # (AUTO) 0.2 X10'3 (0-0.9); EOSINOPHILS % (AUTO) 1.7 % (0-6); HEMATOCRIT 45.1 % (42.0-52.0); HEMOGLOBIN 14.7 g/dl (14.0-17.9); LYMPHOCYTES # (AUTO) 1.1 X10'3 (1.1-4.8); LYMPHOCYTES % (AUTO) 11.7 % (21-51); MEAN CORPUSCULAR HEMOGLOBIN 26.6 PG (27.0-31.0); MEAN CORPUSCULAR HGB CONC 32.5 g/dL (33.0-36.5); MEAN CORPUSCULAR VOLUME 81.7 FL (78-98); MONOCYTES # (AUTO) 0.9 X10'3 (0-0.9); NEUTROPHILS % (AUTO) 75.5 % (42-75); PLATELET COUNT 266 X10'3 (140-440); RED BLOOD COUNT 5.52 X10'6 (4.70-6.10); RED CELL DISTRIBUTION WIDTH 16.1 % (11.5-14.5); WHITE BLOOD COUNT 9.2 X10'3 (4.5-11.0)
[2025-01-16 06:05] LABS: INR 2.6 INR; PROTHROMBIN TIME 24.5 SECONDS (9.0-12.0)
[2025-01-16 06:16] LABS: ALANINE AMINOTRANSFERASE 20 U/L (12-78); ALKALINE PHOSPHATASE 94 IU/L (46-116); ANION GAP 6 (8-16); ASPARTATE AMINO TRANSFERASE 25 U/L (10-37); BILIRUBIN,TOTAL 0.7 MG/DL (0.1-1.0); BLOOD UREA NITROGEN 27 MG/DL (7-18); CALCIUM 8.9 MG/DL (8.5-10.1); CHLORIDE 101 MMOL/L (99-107); GLUCOSE 129 MG/DL (70-104); POTASSIUM 3.6 MMOL/L (3.5-5.1); SODIUM 139 MMOL/L (135-145); TOTAL CARBON DIOXIDE 31.9 MMOL/L (24-32); TOTAL PROTEIN 5.9 G/DL (6.4-8.2); eCRCL 41 ML/MIN; eGFR 45 ML/MIN
[2025-01-16] MEDS ORDERED: LISI5TAB22 PO (10:11)
[2025-01-16] MEDS ORDERED: SPIR25TA PO (10:11)
[2025-01-16] MEDS ORDERED: ATOR20TA66 PO (10:11)
[2025-01-16] MEDS ORDERED: METO-411 PO (10:11)
--- NOTE | 2025-01-16 13:06 | PROGRESS NOTE ---
Progress Note Cardiology Providers to CC ~ Subjective Subjective Patient seen and examined this afternoon. Patient underwent successful cardioversion yesterday. Continues to be in normal sinus rhythm. No chest pain or shortness of breath. Objective Result Diagram: 01/16/25 0501/16/25511 Objective General: Normal body habitus, no acute distress, HEENT: Sclerae clear, PERRL, gums without lesions or bleeding, oropharynx clear without erythema or exudate. Neck: Supple without enlargement of the thyroid, or lymphadenopathy, Chest: Normal size and shape, no tenderness, nonlabored breathing, Breath sounds clear to auscultation. Heart: Regular in rate and rhythm, S1 and S2 normal, no S3-S4 or murmurs. Abdomen: Soft, nontender, no organomegaly, bowel sounds present. Extremities: No edema cyanosis or clubbing. Coagulation Studies Laboratory Tests Test 01/16/25 05:12 Prothrombin Time 24.5 SECONDS (9.0-12.0) H INR International Normalized Ratio 2.6 INR # Coagulation Comments Problem\Assessment\Plan Additional Plan 1 * A 79-year-old male with AFib with RVR. The patient is currently on IV amiodarone, Cardizem, and metoprolol. He is anticoagulated. Patient underwent successful electrical cardioversion on 01/16/2020 five Patient continues to be in normal sinus rhythm. Continue p.o. amiodarone and beta blockers. Cardizem has been discontinued. 2. * History of moderate LV systolic dysfunction with CHF. Recommend GDMT. The patient is on metoprolol and Jardiance. Could consider HANNAH/ARB and spironolactone. Recommend at least adding spironolactone 25 mg p.o. daily. Watch his potassium level. Titrate diuretics as required. 3. * CAD with occluded mid LAD with collateralization. Continue medical therapy. Recommend EECP. The patient recommended to follow up with our office. Spoke with his sister about this as well. 4. * Diabetes, hypertension, and hyperlipidemia. Extensively counseled on keeping the hemoglobin A1c less than 7%, LDL less than 55 mg%, systolic blood pressure less than 130 mmHg. VALARIE CARLOS MD January 16, 2025 13:06
--- NOTE | 2025-01-16 16:22 | DISCHARGE SUMMARY-Residence ---
Discharge Summary Providers to CC Resident Creating Document: EMILY MONTESALIS JALEN CC: CONCEPCION PHILLIP MD ~ Discharge Summary Admission Diagnosis: Afib RVR, CHF Hospital Course DATE OF ADMISSION: 01/13/2025 DATE OF DISCHARGE: 01/16/2025 Discharge Diagnosis\Comment: Paroxysmal atrial fibrillation with RVR s/p electrical cardioversion, resolved Acute on chronic heart failure with reduced ejection fraction History of CAD Possible ischemic cardiomyopathy Left pleural effusion Trivial loculated pericardial effusion Hypertension Hyperlipidemia Type 2 diabetes Left 2nd toe diabetic wound UTI, possible prostatitis CONCHIS likely prerenal due to tubular stasis, resolved Operations\Procedures: Electrical cardioversion Consultants: Dr. Burnett Complications: None Condition on DC: Stable New Medications: Atorvastatin Calcium (Atorvastatin Calcium) 20 Mg Tablet 20 MG PO DAILY for 30 Days, #30 TAB Lisinopril (Lisinopril) 5 Mg Tablet 5 MG PO DAILY for 30 Days, #30 TAB Metoprolol Succinate (Metoprolol Succinate) 100 Mg Tab.sr.24h 1 TAB PO BID for 30 Days, #30 TAB 0 Refills Spironolactone (Aldactone) 25 Mg Tablet 25 MG PO DAILY@0830 for 30 Days, #30 TAB Continued Medications: [B12 Folate] () 800 MG PO DAILY Empagliflozin (Jardiance) 10 Mg Tablet 10 MG PO DAILY, #30 TAB Furosemide (Lasix) 40 Mg Tablet 1 TAB PO DAILY for 30 Days, #30 TAB 0 Refills Multivitamin (Multi Vitamin Daily) 1 Each Tablet 1 TAB PO DAILY for 30 Days, #30 TAB 0 Refills Warfarin Sodium (Warfarin Sodium) 5 Mg Tablet 1 TAB PO DAILY for 30 Days, #30 TAB 0 Refills Discontinued Medications: Diltiazem HCl (Dilt-Xr) 120 Mg Capsule.cr 240 MG PO DAILY, #30 CAP.SR Metoprolol Succinate (Metoprolol Succinate) 50 Mg Tab.sr.24h 1 TAB PO DAILY Discharge Summary: Patient was admitted with the following HPI: Patient is a 79-year-old male with history of atrial fibrillation, type 2 diabetes, CHF, hypertension, and hyperlipidemia who came to the ED due to fast heart rate. Patient reports that today he went to his primary care doctor for routine follow up, and while taking his vital signs it was noticed that his heart rate was up to 140 beats per minute reason why patient was sent to the ER. Patient denies any symptoms at all including palpitations, chest pain, lightheadedness, dizziness, nausea or any other symptoms. He does report that he has a longstanding history of shortness of breaths which usually happens on exertion, he states he can walk about 1 or 2 blocks before having to stop to catch his breath. He states that 3 days ago he had a short lasted episode of shortness of breath at rest. He used to be a patient of Dr. Cory edwards, but has not seen him in 5 years. Hospital course: Patient was admitted with diagnosis of atrial fibrillation with RVR, acute on chronic heart failure with preserved ejection fraction, and small left pleural effusion. Patient was started on rate control medications initially IV Cardizem and metoprolol in the ED, without response, patient was then started on amiodarone drip which he stayed on for over 24 hours, in addition to increasing his metoprolol to 100 mg twice a day, and continuing his home diltiazem; heart rate remaining over 120 beats per hour still. Therefore, Cardiology was consulted and patient underwent electrical cardioversion successfully on 01/15/2025. In addition, patient received IV Lasix and due to decreased EF GDMT was optimized. Patient remained in normal sinus rhythm for the rest of the hosp ital stay. After evaluation by Physical therapy, patient was recommended to go to a rehab due to high fall risk but patient strongly insisted on going back home. Patient will be discharged home today with home health for PT/OT. Patient was also treated for an UTI with IV antibiotics. For his left pleural effusion, in view of patient being anticoagulated with warfarin, and significantly elevated INR, considering that he was hemodynamically stable, thoracentesis was deferred. Patient with follow up outpatient with Dr. Burnett. Laboratory Tests Test 01/14/25 17:27 01/14/25 21:46 01/15/25 05:09 01/15/25 06:34 Glucometer 157 mg/dl 193 mg/dl 176 mg/dl White Blood Count 8.4 X10'3 Red Blood Count 5.66 X10'6 Hemoglobin 15.2 g/dl Hematocrit 46.0 % Mean Corpuscular Volume 81.3 FL Mean Corpuscular Hemoglobin 26.9 PG Mean Corpuscular Hemoglobin Concent 33.1 g/dL Red Cell Distribution Width 15.9 % Platelet Count 278 X10'3 Mean Platelet Volume 7.6 FL Neutrophils (%) (Auto) 74.6 % Lymphocytes (%) (Auto) 13.0 % Monocytes (%) (Auto) 9.8 % Eosinophils (%) (Auto) 1.5 % Basophils (%) (Auto) 1.1 % Neutrophils # (Auto) 6.3 X10'3 Lymphocytes # (Auto) 1.1 X10'3 Monocytes # (Auto) 0.8 X10'3 Eosinophils # (Auto) 0.1 X10'3 Basophils # (Auto) 0.1 X10'3 CBC Comment Prothrombin Time 33.0 SECONDS INR International Normalized Ratio 3.6 INR Coagulation Comments Sodium Level 141 MMOL/L Potassium Level 3.6 MMOL/L Chloride Level 103 MMOL/L Carbon Dioxide Level 27.4 MMOL/L Anion Gap 11 Blood Urea Nitrogen 24 MG/DL Creatinine 1.07 MG/DL Estimated GFR/1.73 m2 67 ML/MIN BUN/Creatinine Ratio 22.4 Glucose Level 176 MG/DL Calcium Level 8.9 MG/DL Magnesium Level 2.2 MG/DL Total Bilirubin 0.4 MG/DL Aspartate Amino Transf (AST/SGOT) 20 U/L Alanine Aminotransferase (ALT/SGPT) 24 U/L Alkaline Phosphatase 97 IU/L Total Protein 6.0 G/DL Albumin 3.0 G/DL Globulin 3.0 G/DL Albumin/Globulin Ratio 1.0 Chemistry Comments Test 01/15/25 12:49 01/15/25 17:35 01/15/25 20:53 01/16/25 05:12 Glucometer 129 mg/dl 166 mg/dl 144 mg/dl White Blood Count 9.2 X10'3 Red Blood Count 5.52 X10'6 Hemoglobin 14.7 g/dl Hematocrit 45.1 % Mean Corpuscular Volume 81.7 FL Mean Corpuscular Hemoglobin 26.6 PG Mean Corpuscular Hemoglobin Concent 32.5 g/dL Red Cell Distribution Width 16.1 % Platelet Count 266 X10'3 Mean Platelet Volume 8.0 FL Neutrophils (%) (Auto) 75.5 % Lymphocytes (%) (Auto) 11.7 % Monocytes (%) (Auto) 10.0 % Eosinophils (%) (Auto) 1.7 % Basophils (%) (Auto) 1.1 % Neutrophils # (Auto) 7.0 X10'3 Lymphocytes # (Auto) 1.1 X10'3 Monocytes # (Auto) 0.9 X10'3 Eosinophils # (Auto) 0.2 X10'3 Basophils # (Auto) 0.1 X10'3 CBC Comment Prothrombin Time 24.5 SECONDS INR International Normalized Ratio 2.6 INR Coagulation Comments Sodium Level 139 MMOL/L Potassium Level 3.6 MMOL/L Chloride Level 101 MMOL/L Carbon Dioxide Level 31.9 MMOL/L Anion Gap 6 Blood Urea Nitrogen 27 MG/DL Creatinine 1.50 MG/DL Estimated GFR/1.73 m2 45 ML/MIN BUN/Creatinine Ratio 18.0 Glucose Level 129 MG/DL Calcium Level 8.9 MG/DL Magnesium Level 2.0 MG/DL Total Bilirubin 0.7 MG/DL Aspartate Amino Transf (AST/SGOT) 25 U/L Alanine Aminotransferase (ALT/SGPT) 20 U/L Alkaline Phosphatase 94 IU/L Total Protein 5.9 G/DL Albumin 3.0 G/DL Globulin 2.9 G/DL Albumin/Globulin Ratio 1.0 Chemistry Comments Test 01/16/25 07:00 01/16/25 12:55 Glucometer 129 mg/dl 166 mg/dl Imaging: Chest x-ray: The cardiac silhouette is enlarged. The lungs demonstrate bilateral patchy airspace opacities, most pronounced within the left lower lobe. The pulmonary vasculature is prominent. Small to moderate left pleural effusion. Aortic atherosclerotic disease. There is no pneumothorax. Old distal left clavicular fracture deformity. Echocardiogram: There is moderate LV systolic dysfunction present. Overall LVEF is above 45% decreased from previous echo of 60%. However patient is in AFib but now. Right ventricle is mildly dilated with adequate function. PA systolic pressure of 45 mm of mercury Left atrium is moderately dilated. Unchanged from previous echo. Mitral valve leaflets are mildly thickened with mild annular calcification. No stenosis. Trace regurgitation. Unchanged from previous echo. The tricuspid valve is normal in structure with mild to moderate regurgitation. Unchanged from previous echo. The pulmonary valve is normal in structure with physiologic insufficiency. Trivial loculated pericardial effusion present without hemodynamic compromise. Discharged physical exam: Vital Signs Date Time Temp Pulse Resp B/P (MAP) Pulse Ox O2 Delivery O2 Flow Rate FiO2 01/16/25 11:00 96.9 67 26 119/69 (86) 96 Room Air 01/15/25 08:50 1.0 01/13/25 15:00 N/A General: awake, alert oriented to place, time, and person HEENT: No pallor present, no icterus, moist mucous membranes Neck: No masses and tenderness Resp: Unlabored. Faint bilateral basal crackles, more predominantly on the left. No wheezing or rhonchi Heart: Irregular Rate and rhythm, variable S1 and S2 without murmur, rub or gallop Abdomen: Soft and non tender no organomegaly, no guarding and rigidity, bowel sounds present Neuro: No weakness in the upper and lower limb muscles, power of the muscles 5/5 bilateral upper and lower muscles, knee reflex present bilaterally. Cranial nerves intact Extremities: Left 2nd toe he is covered with clean dressing. No cyanosis,c lubbing or edema Skin: Warm and Dry. No lesions Patient will be discharged with the following recommendations: We made some adjustments on your heart medications, please take as prescribed Please follow up with your PCP as you will need refills for your medications Please follow up with Dr Burnett (quality control checker) We will arrange home health with physical therapy for you Please return to the ED if you experience any sustained palpitations, chest pain, shortness of breath, lightheadedness of any other concerning symptoms *Problems/Diagnosis: (1) Atrial fibrillation with RVR Status: Resolved (2) UTI (urinary tract infection) Status: Acute Total Time Spent on D/C: > 30 Minutes Date of Service: January 16, 2025 Billing Provider: CONCEPCION PHILLIP MD, LEONARDO LUIS January 16, 2025 16:21
[2025-01-16] MEDS: warfarin 5mg tablet PO ONE (20:05)
[2025-01-17 02:00] VITALS: BP 139/67; PULSE 53; RESP 16; TEMP 97.6; O2SAT 97
[2025-01-17 06:54] LABS: BASOPHILS # (AUTO) 0.1 X10'3 (0-0.2); BASOPHILS % (AUTO) 1.1 % (0-1); EOSINOPHILS # (AUTO) 0.2 X10'3 (0-0.9); EOSINOPHILS % (AUTO) 1.9 % (0-6); HEMATOCRIT 45.2 % (42.0-52.0); HEMOGLOBIN 14.8 g/dl (14.0-17.9); LYMPHOCYTES # (AUTO) 1.3 X10'3 (1.1-4.8); LYMPHOCYTES % (AUTO) 14.6 % (21-51); MEAN CORPUSCULAR HGB CONC 32.8 g/dL (33.0-36.5); MEAN CORPUSCULAR VOLUME 82.4 FL (78-98); MEAN PLATELET VOLUME 8.1 FL (7.4-10.4); MONOCYTES % (AUTO) 11.5 % (2-12); NEUTROPHILS # (AUTO) 6.1 X10'3 (1.8-7.7); NEUTROPHILS % (AUTO) 70.9 % (42-75); PLATELET COUNT 270 X10'3 (140-440); RED BLOOD COUNT 5.49 X10'6 (4.70-6.10); RED CELL DISTRIBUTION WIDTH 16.2 % (11.5-14.5); WHITE BLOOD COUNT 8.6 X10'3 (4.5-11.0)
[2025-01-17 07:00] VITALS: BP 184/83; PULSE 58; RESP 19; TEMP 97; O2SAT 99
[2025-01-17 07:04] LABS: INR 1.9 INR; PROTHROMBIN TIME 17.9 SECONDS (9.0-12.0)
[2025-01-17 07:23] LABS: ALANINE AMINOTRANSFERASE 24 U/L (12-78); ALBUMIN 3.1 G/DL (3.4-5.0); ALBUMIN/GLOBULIN RATIO 1.1 (1.1-1.5); ALKALINE PHOSPHATASE 104 IU/L (46-116); ANION GAP 7 (8-16); ASPARTATE AMINO TRANSFERASE 23 U/L (10-37); BILIRUBIN,TOTAL 0.8 MG/DL (0.1-1.0); BLOOD UREA NITROGEN 30 MG/DL (7-18); BUN/CREATININE RATIO 29.1 (10.0-20.0); CALCIUM 9.2 MG/DL (8.5-10.1); CHLORIDE 102 MMOL/L (99-107); CREATININE 1.03 MG/DL (0.60-1.10); GLUCOSE 131 MG/DL (70-104); MAGNESIUM 2.1 MG/DL (1.5-2.4); POTASSIUM 3.9 MMOL/L (3.5-5.1); SODIUM 140 MMOL/L (135-145); TOTAL CARBON DIOXIDE 31.4 MMOL/L (24-32); eCRCL 59 ML/MIN; eGFR 70 ML/MIN
[2025-01-17 09:48] VITALS: BP_SYST 184; PULSE 58
--- NOTE | 2025-01-17 15:01 | PROGRESS NOTE ---
Progress Note Cardiology Providers to CC ~ Subjective Subjective Patient seen and examined this morning before his discharge. Patient is ready to go home waiting for his sister. No chest pain or shortness of breath. Objective Result Diagram: 01/17/2539 01/17/2539 Objective General: Normal body habitus, no acute distress, HEENT: Sclerae clear, PERRL, gums without lesions or bleeding, oropharynx clear without erythema or exudate. Neck: Supple without enlargement of the thyroid, or lymphadenopathy, Chest: Normal size and shape, no tenderness, nonlabored breathing, Breath sounds clear to auscultation. Heart: Regular in rate and rhythm, S1 and S2 normal, no S3-S4 or murmurs. Abdomen: Soft, nontender, no organomegaly, bowel sounds present. Extremities: No edema cyanosis or clubbing. Coagulation Studies Laboratory Tests Test 01/17/25 05:39 Prothrombin Time 17.9 SECONDS (9.0-12.0) H INR International Normalized Ratio 1.9 INR Coagulation Comments Problem\Assessment\Plan Additional Plan 1 * A 79-year-old male with AFib with RVR. The patient is currently on IV amiodarone, Cardizem, and metoprolol. He is anticoagulated. Patient underwent successful electrical cardioversion on 01/16/2020 five Patient continues to be in normal sinus rhythm. Continue p.o. amiodarone and beta blockers. Patient to follow up with me in 1-2 months. 2. * History of moderate LV systolic dysfunction with CHF. Recommend GDMT. The patient is on metoprolol and Jardiance. Could consider HANNAH/ARB and spironolactone. Recommend at least adding spironolactone 25 mg p.o. daily. Potassium level 3.9. Patient to follow up with PMD for titration of diuretics as required. 3. * CAD with occluded mid LAD with collateralization. Continue medical therapy. Recommend EECP. The patient recommended to follow up with our office. Spoke with his sister about this as well. Patient has agreed to come for EECP. 4. * Diabetes, hypertension, and hyperlipidemia. Extensively counseled on keeping the hemoglobin A1c less than 7%, LDL less than 55 mg%, systolic blood pressure less than 130 mmHg. VALARIE CARLOS MD January 17, 2025 15:01
[2025-01-17] MEDS ORDERED: warfarin 5mg tablet PO ONE (21:00)
--- NOTE | 2025-01-21 09:46 | CARDIOLOGY REPORT ---
DATE OF SERVICE: 01/15/2025 DICTATING PHYSICIAN: LETHA Burnett MD [employer] PRIMARY PHYSICIAN: Genie Zhang PA-C. GENERAL INTERNIST: LETHA Burnett MD. INDICATION: The patient is a 79-year-old male with history of CAD, diabetes, hypertension, hyperlipidemia, CHF with paroxysmal atrial fibrillation. He was hospitalized with AFib with RVR with congestive heart failure. His echocardiogram showed ejection fraction of 45% with PA systolic 45 mmHg. The patient was initially rate controlled with IV amiodarone, Cardizem, metoprolol. Since he was having persistent RVR despite optimal therapy, after discussing risks and benefits, alternative options, the patient preferred to proceed with electrical cardioversion. Risks, benefits, and alternative options were discussed and informed consent was obtained. The patient INR was therapeutic. DESCRIPTION OF PROCEDURE: Anterior and posterior patches used. Using biphasic electrical energy 200 joules, converted to normal sinus rhythm. He remained in normal sinus rhythm. IMPRESSION: A 79-year-old with paroxysmal AFib, converted to normal sinus rhythm. RECOMMENDATIONS: * Continue amiodarone 200 mg p.o. b.i.d. for 1 week followed by 200 mg once a day. * Stop p.o. Cardizem and increase metoprolol as needed. * Continue anticoagulation. * Treat his cardiomyopathy with GDMT therapy with beta blockers, HANNAH inhibitors, spironolactone, and Jardiance. * Also recommend EECP for his occluded LAD with collateralization. * Recommend diet, weight loss, and exercise program. LETHA Burnett MD TID: [id number] RECEIPT: [id number] /[facility] cc: Genie Zhang PA-C. [facility]
== END 2025-01-17 11:30 | disposition home health service (06) | DRG 291 ==
LOC: ER 12:08 → ED HOLD 14:06 → PCU 3S 15:53
PROVIDERS: ADMIT Family Medicine; ATTEND Family Medicine
PROC: 5A2204Z Restoration of Cardiac Rhythm, Single (ICD-10-PCS; principal; 2025-01-15)
DX: I11.0 Hypertensive heart disease with heart failure (principal); I50.43 Acute on chronic combined systolic (congestive) and diastolic (congestive) heart failure; N17.0 Acute kidney failure with tubular necrosis; N39.0 Urinary tract infection, site not specified; I31.39 Other pericardial effusion (noninflammatory); I48.0 Paroxysmal atrial fibrillation; E11.9 Type 2 diabetes mellitus without complications; I25.10 Atherosclerotic heart disease of native coronary artery without angina pectoris; E78.5 Hyperlipidemia, unspecified; I25.5 Ischemic cardiomyopathy; N41.9 Inflammatory disease of prostate, unspecified; Z63.4 Disappearance and death of family member; Z88.8 Allergy status to other drugs, medicaments and biological substances; Z95.5 Presence of coronary angioplasty implant and graft; Z80.9 Family history of malignant neoplasm, unspecified
CPT/HCPCS: 36415; 71045; 80053; 80061; 81001; 82948; 83036; 83735; 83880; 84145; 84443; 84484; 85025; 85610; 87077; 87081; 87088; 87186; 93005; 93308; 96365; 96367; 96375; 97110; 97116; 97161; 97530; 99285; A4615; G0378; J0282; J0696; J1815; J1938; J1940; J2250; J2274; J3490; J7030; J7040

== ENCOUNTER 2025-02-05 14:03 | Inpatient (IN) | payer BC ==
[~2025-02-05] VITALS: Ht 175.3 cm; Wt 31.4 kg
[~2025-02-05 14:03] MED LIST changes: +ATOR20TA66 PO; -CARCD120C PO; +LISI5TAB22 PO; -METO-384 PO; +METO-411 PO; +SPIR25TA PO
--- NOTE | 2025-02-05 15:53 | Physician Documentation ---
History of Present Illness ~ Chief Complaint: Wound Stated Complaint: WOUND CARE Time Seen by MD: 15:45 Primary Medical Doctor: MONSERRAT Hammonds HPI Patient is sent here today from the outpatient wound clinic with results from an MRI that was done recently stating that the patient has nearly complete destruction of the distal phalanx of the left 3rd toe with also involvement of the middle phalanx concerning for osteomyelitis. Patient states he very diminished sensation of his feet. Patient denies any fevers or chills Tetanus within 5 years?: No Medication Reconciliation Allergies: Coded Allergies: No Known Allergies (Unverified , 08/09/15) Scheduled Atorvastatin Calcium (Atorvastatin Calcium), 20 MG PO DAILY Empagliflozin (Jardiance), 10 MG PO DAILY Furosemide (Lasix), 1 TAB PO DAILY Lisinopril (Lisinopril), 5 MG PO DAILY Metoprolol Succinate (Metoprolol Succinate), 1 TAB PO BID Multivitamin (Multi Vitamin Daily), 1 TAB PO DAILY, (Reported) Spironolactone (Aldactone), 25 MG PO DAILY@0830 [B12 Folate], 800 MG PO DAILY, (Reported) Discontinued Medications Warfarin Sodium (Warfarin Sodium), 1 TAB PO DAILY Past Medical History Past Medical History: Atrial Fibrillation, Coronary Artery Disease, Hypertension, Diabetes Past Surgical History: noncontributory Alcohol Use: None Drug Use: none Lives with: Alone Lives In: Home Occupation: retired Review of Systems Constitutional: Denies: chills, fever, weakness Eyes: Denies: pain, blurred vision ENT: Denies: ear pain, nose pain, throat pain, mouth pain Respiratory: Denies: cough, shortness of breath Cardiovascular: Denies: chest pain, palpitations Gastrointestinal: Denies: abdominal pain, nausea, vomiting Genitourinary: Denies: burning, dysuria Male Genitalia: Denies: penile discharge, testicular pain Neurological: Denies: headache, dizziness Musculoskeletal: Denies: pain, swelling Integumentary: Denies: rash, lesions Allergic/Immunologic: Denies: hives, itching Hematologic/Lymphatic: Denies: no symptoms reported Psychiatric: Denies: depression, anxiety Physical Exam Vital Signs: Temperature: 98.3, Source: Oral, Heart Rate: 52, Respiratory Rate: 16, BP: 147/96, Pulse Oximetry: 97, Weight: 96.500 Oxygen Flow Rate: 0 Physical Exam General: Awake and Alert, no acute distress. HEENT: Conjunctiva pink, Sclera clear, Mucus Membranes moist. Neck: Supple without masses and tenderness. Resp: Unlabored. Lungs clear to auscultation bilaterally. Heart: Regular Rate and rhythm, normal S1 and S2 without murmur, rub or gallop. Musculoskeletal: Patient on exam does have chronic appearing ulceration of the distal tuft of the left 3rd toe. There is minimal serosanguineous drainage. Patient has significant deformity of that left 3rd toe chronic appearing in nature. Patient has significantly decreased sensation distally of the feet bilaterally. Extremities: No cyanosis,clubbing or edema. Skin: Warm and Dry. Progress Results/Orders Results/Orders Orders - NIC VILLAVICENCIO PAC Electrocardiogram (02/05/25 15:48) Culture Blood (02/05/25 15:48) Chest,Single View (02/05/25 15:48) Page Hospitalist (02/05/25 16:37) Fill Out Med Reconciliation (02/05/25 16:37) Completed Orders - NIC VILLAVICENCIO PAC Electrocardiogram (02/05/25 15:48) Cbc/Diff (02/05/25 15:48) MG (02/05/25 15:48) Chest,Single View (02/05/25 15:48) Procalcitonin (02/05/25 15:48) BMP (02/05/25 15:48) Lacticsepsis (02/05/25 15:48) PBNP (02/05/25 16:39) Ua W/Microscopic, Cult If Ind (02/05/25 17:00) C-Reactive Protein (02/05/25 16:39) Medications Received in ER Medications (Trade) Dose Ordered Sig/Ariella Route PRN Reason Start Time Stop Time Status Last Admin Dose Admin Sodium Chloride 1,000 ml @ 100 mls/hr Q10H IV 02/05/25 16:55 02/05/25 17:54 100 MLS/HR Piperacillin/ Tazobactam/ Dextrose 50 ml @ 12.5 mls/hr Q8H IV 02/05/25 16:55 02/05/25 17:54 12.5 MLS/HR Vital Signs 02/05/25 02/05/25 02/05/25 02/05/25 14:28 15:42 16:48 16:50 Temp 98.8 98.3 Pulse 54 52 52 Resp 16 16 18 B/P (MAP) 137/68 147/96 (113) 141/72 (95) Pulse Ox 94 97 92 O2 Flow Rate 0 0 0 Laboratory Tests Test 02/05/25 16:39 02/05/25 17:00 White Blood Count 6.4 Red Blood Count 5.99 Hemoglobin 16.0 Hematocrit 49.1 Mean Corpuscular Volume 82.0 Mean Corpuscular Hemoglobin 26.7 L Mean Corpuscular Hemoglobin Concent 32.5 L Red Cell Distribution Width 16.7 H Platelet Count 258 Mean Platelet Volume 8.3 Neutrophils (%) (Auto) 69.8 Lymphocytes (%) (Auto) 17.5 L Monocytes (%) (Auto) 9.5 Eosinophils (%) (Auto) 2.1 Basophils (%) (Auto) 1.1 H Neutrophils # (Auto) 4.5 Lymphocytes # (Auto) 1.1 Monocytes # (Auto) 0.6 Eosinophils # (Auto) 0.1 Basophils # (Auto) 0.1 CBC Comment Erythrocyte Sedimentation Rate 12 Prothrombin Time 21.0 H INR International Normalized Ratio 2.2 Activated Partial Thromboplast Time 34 H Coagulation Comments Sodium Level 140 Potassium Level 3.9 Chloride Level 103 Carbon Dioxide Level 29.8 Anion Gap 7 L Blood Urea Nitrogen 25 H Creatinine 1.08 Estimated GFR/1.73 m2 66 BUN/Creatinine Ratio 23.1 H Glucose Level 118 H Lactic Acid Level 1.2 Calcium Level 8.9 Magnesium Level 2.1 C-Reactive Protein 0.73 H Pro-B-Type Natriuretic Peptide 716 H Albumin 3.5 Procalcitonin < 0.05 Chemistry Comments Urine Specimen Description Non-specified Urine Color Yellow Urine Clarity Clear Urine pH 5.5 Urine Specific [place] 1.015 Urine Protein Negative Urine Glucose (UA) >=1000 H Urine Ketones Negative Urine Occult Blood Trace-intact Urine Nitrite Negative Urine Bilirubin Negative Urine Urobilinogen 0.2 Urine Leukocyte Esterase Trace H Urine RBC 0-2 Urine WBC 10-20 H Urine WBC Clumps Few Urine Squamous Epithelial Cells Few Urine Transitional Epithelial Cells Few Urine Bacteria None seen Urine Culture Indicated Indicated Volume Urine Centrifuged 10 ml Urine Comment Microbiology Date/Time Source Procedure Growth Status 02/05/25 16:43 Blood Hand Right Blood Culture - Preliminary NEGATIVE (LESS THAN 24 HOURS) Resulted EKG/XRAY/CT/US/VASC/MRI Chest X-Ray : Additional Comments Chest x-ray interpreted by myself today shows no large infiltrate, no large effusion, cardiomegaly with vascular congestion. DIAGNOSTIC RADIOLOGY Patient: FREDERIC MELGAR Medical Record: [id number] OF [facility] : 1945, Age: 79 Sex: Male Location: ER Patient Status: [facility] ER Service Date/Time: 02/05/251547 Ordering Physician: NIC VILLAVICENCIO PAC Exam: CHEST,SINGLE VIEW EXAM: XR Chest, 1 View CLINICAL INDICATION: SEPSIS TECHNIQUE: Frontal view of the chest. COMPARISON: DI CHEST,SINGLE VIEW on DOS: 01/13/25, DI CHEST,SINGLE VIEW on DOS: 11/05/24, DI CHEST,SINGLE VIEW on DOS: 02/29/24, CHEST,SINGLE VIEW on DOS: 03/14/23, CHEST,SINGLE VIEW on DOS: 04/16/21 FINDINGS: LUNGS AND PLEURAL SPACES: See below. HEART: Cardiomegaly with mild congestion. MEDIASTINUM: Unremarkable. Normal mediastinal contour. BONES/JOINTS: Unremarkable. No acute fracture. OTHER FINDINGS: . . . . IMPRESSION: Cardiomegaly with mild congestion. Electronically Signed by:THOMAS BRANNON MD Date & Time: 02/05/25 1628 Dictated by: THOMAS BRANNON MD Dictation date and time: 02/05/25 1610 Primary Care Provider: NO PRIMARY CARE PROVIDER cc: NIC VILLAVICENCIO PAC ~ Medical Decision Making Findings Patient was sent here today from the outpatient wound clinic with results from an MRI that was done recently stating that the patient has nearly complete destruction of the distal phalanx of the left 3rd toe with also involvement of the middle phalanx concerning for osteomyelitis. Patient states he very diminished sensation of his feet. Patient denies any fevers or chills Hospitalist was consulted for admission to the hospital for further eval and treatment of left 3rd toe likely osteomyelitis. I also did reach out to Dr. Castle for orthopedic consult and Dr. Castle recommended we contact the tent finisher on-call. The hospitalist will get in touch with the tent finisher to coordinate evaluation. Departure Disposition: ADMITTED INPATIENT Admitted to Inpatient Unit: to hospitalist Admission Level of Care: Med/Surg with Tele Impression: Primary Impression: Osteomyelitis of toe Condition: Stable Additional Instructions: Hospitalist was consulted for admission to the hospital for further eval and treatment of left 3rd toe likely osteomyelitis. I also did reach out to Dr. Castle for orthopedic consult and Dr. Castle recommended we contact the tent finisher on-call. The hospitalist will get in touch with the tent finisher to coordinate evaluation. Referrals: NO PRIMARY CARE PROVIDER (PCP) Signature Scribe Signature: No scribe Attestation: No scribe NIC VILLAVICENCIO PAC Feb 05, 2025 15:53
--- NOTE | 2025-02-05 16:08 | ELECTROCARDIOGRAPH REPORT ---
[facility] Test Date: 2025-02-05 Test Time: 16:04:14 Pat Name: FREDERIC MELGAR Department: EMERGENCY ROOM Room: Gender: M Neck Band Maker: KH : 1945 Requested By: NIC VILLAVICENCIO Order Number: [id number] Reading MD: Dr. Gaurav Pelayo Measurements Intervals [place] Rate: 48 P: 20 UT: 151 QRS: -85 QRSD: 155 T: 76 QT: 491 QTc: 439 Interpretive Statements Sinus bradycardia Right bundle branch block Inferior infarct, old Probable anteroseptal infarct, old Electronically Signed On 02-05-2025 16:43:[address] Gaurav Pelayo Please click the below link to view image of tracing.
--- NOTE | 2025-02-05 16:30 | RADIOLOGY REPORT ---
EXAM: XR Chest, 1 View CLINICAL INDICATION: SEPSIS TECHNIQUE: Frontal view of the chest. COMPARISON: DI CHEST,SINGLE VIEW on DOS: 01/13/25, DI CHEST,SINGLE VIEW on DOS: 11/05/24, DI CHEST,SIN GLE VIEW on DOS: 02/29/24, CHEST,SINGLE VIEW on DOS: 03/14/23, CHEST,SINGLE VIEW on DOS: 04/16/21 FINDINGS: LUNGS AND PLEURAL SPACES: See below. HEART: Cardiomegaly with mild congestion. MEDIASTINUM: Unremarkable. Normal mediastinal contour. BONES/JOINTS: Unremarkable. No acute fracture. OTHER FINDINGS: . . . . IMPRESSION: Cardiomegaly with mild congestion.
[2025-02-05 16:55] LABS: BASOPHILS # (AUTO) 0.1 X10'3 (0-0.2); BASOPHILS % (AUTO) 1.1 % (0-1); EOSINOPHILS # (AUTO) 0.1 X10'3 (0-0.9); EOSINOPHILS % (AUTO) 2.1 % (0-6); HEMATOCRIT 49.1 % (42.0-52.0); LYMPHOCYTES # (AUTO) 1.1 X10'3 (1.1-4.8); LYMPHOCYTES % (AUTO) 17.5 % (21-51); MEAN CORPUSCULAR HEMOGLOBIN 26.7 PG (27.0-31.0); MEAN CORPUSCULAR HGB CONC 32.5 g/dL (33.0-36.5); MEAN PLATELET VOLUME 8.3 FL (7.4-10.4); MONOCYTES # (AUTO) 0.6 X10'3 (0-0.9); MONOCYTES % (AUTO) 9.5 % (2-12); NEUTROPHILS # (AUTO) 4.5 X10'3 (1.8-7.7); NEUTROPHILS % (AUTO) 69.8 % (42-75); PLATELET COUNT 258 X10'3 (140-440); RED BLOOD COUNT 5.99 X10'6 (4.70-6.10); RED CELL DISTRIBUTION WIDTH 16.7 % (11.5-14.5); WHITE BLOOD COUNT 6.4 X10'3 (4.5-11.0)
[2025-02-05] MEDS ORDERED: magnesium sulf-water 2g/50mL 50 ML IV PRN (16:55)
[2025-02-05] MEDS ORDERED: HYDROmorphone inj. 0.5 MG/0.5 ML DISP.SYRIN IV PRN (16:55)
[2025-02-05] MEDS ORDERED: acetaminophen 325mg tablet PO PRN (16:55)
[2025-02-05] MEDS ORDERED: HYDROcodone/acetaminophen 5mg/325mg tablet PO PRN (16:55)
[2025-02-05] MEDS ORDERED: potassium Cl 20 mEq SR tablet PO PRN (16:55)
[2025-02-05] MEDS ORDERED: DEXTROSE 15 GM of carb/4 tabs (each vial/BOTTLE has 4 tablets) PO PRN ×2 (16:55)
[2025-02-05] MEDS ORDERED: dextrose 50%-water 50ml dispensing syringe IV PRN (16:55)
[2025-02-05] MEDS ORDERED: potassium Cl 40MEQ/1/2NS 520ml 520 ML IV PRN (16:55)
[2025-02-05] MEDS ORDERED: metoclopramide 5 mg/ml inj IV PRN (16:55)
[2025-02-05] MEDS ORDERED: morphine 2 MG/ML inj. syringe IV PRN ×2 (16:55)
[2025-02-05] MEDS ORDERED: glucagon, human recombinant 1mg kit SUBCUT PRN (16:55)
[2025-02-05] MEDS ORDERED: bisacodyl 10mg suppository rectal RC PRN (16:55)
[2025-02-05] MEDS ORDERED: magnesium Cl slow-release 64mg tablet PO PRN (16:55)
[2025-02-05] MEDS ORDERED: mag hydrox/Alum hydrox/simeth 30ml oral suspension PO PRN (16:55)
[2025-02-05] MEDS ORDERED: magnesium sulf-water 4G/100mL 100 ML IV PRN (16:55)
[2025-02-05] MEDS ORDERED: ondansetron/PF 4mg/2ml inj IV PRN (16:55)
[2025-02-05] MEDS ORDERED: magnesium hydroxide 30ml (MOM) UD suspension PO PRN (16:55)
[2025-02-05] MEDS: INSULIN LISPRO 100 UNIT/ML INSULN.PEN MULTI-DOSE SQ SCH (17:00)
[2025-02-05 17:01] LABS: ALBUMIN 3.5 G/DL (3.4-5.0); ANION GAP 7 (8-16); BLOOD UREA NITROGEN 25 MG/DL (7-18); BUN/CREATININE RATIO 23.1 (10.0-20.0); CALCIUM 8.9 MG/DL (8.5-10.1); CHLORIDE 103 MMOL/L (99-107); CREATININE 1.08 MG/DL (0.60-1.10); GLUCOSE 118 MG/DL (70-104); MAGNESIUM 2.1 MG/DL (1.5-2.4); POTASSIUM 3.9 MMOL/L (3.5-5.1); SODIUM 140 MMOL/L (135-145); TOTAL CARBON DIOXIDE 29.8 MMOL/L (24-32); eCRCL 56 ML/MIN; eGFR 66 ML/MIN
[2025-02-05 17:20] LABS: APTT 34 SECONDS (22-32); INR 2.2 INR
[2025-02-05 17:21] LABS: BILIRUBIN,URINE NEGATIVE (Neg); CLARITY,URINE CLEAR (Clear); COLOR,URINE YELLOW (Yellow); GLUCOSE, URINE >=1000 mg/dl (Neg); KETONES,URINE NEGATIVE (Neg); LEUKOCYTE ESTERASE ,URINE TRACE (Neg); NITRITES, URINE NEGATIVE (Neg); OCCULT BLOOD,URINE TRACE-INTACT (Neg); PH,URINE 5.5 (4.8-8.0); PROTEIN,URINE NEGATIVE (Neg); UROBILINOGEN,URINE 0.2 E.U/dL (0.2-1.0)
[2025-02-05 17:27] LABS: UA COLLECTION TYPE NON-SPECIFIED
[2025-02-05 17:28] LABS: BACTERIA,URINE NONE SEEN /HPF (Neg); RBC,URINE 0-2 /HPF (0-2); SQUAMOUS EPITHELIAL CELL,UR FEW /LPF (FEW); TRANSITIONAL EPI CELLS,URINE FEW /HPF; WBC CLUMPS,URINE FEW /HPF (NEGATIVE)
[2025-02-05 17:28] LABS: PRO BRAIN NATRIURETIC PEPTIDE 716 PG/ML (0-450)
[2025-02-05] MEDS: piperacillin/tazo 3.375gm/50ml 50 ML IV SCH (17:54)
[2025-02-05] MEDS: normal saline 1000ml 1,000 ML IV SCH (17:54)
--- NOTE | 2025-02-05 19:18 | HISTORY AND PHYSICAL-Residence ---
History & Physical Providers to CC Resident Creating Document: KIERRA BRANCH, RES ~ History of Present Illness Primary Medical Doctor: MONSERRAT Hammonds Reason for Admit\Complaint: Osteomyelitis of foot History of Present Illness This is a 79-year-old male with a history of atrial fibrillation, CAD, hypertension, diabetes presents to the ED after being sent from the wound care clinic for abnormal MRI results. Patient has had history of diabetes for more than 10 years and follows up with [facility] Dr. Prescott who is his PCP for diabetes. He lives alone at home and uses walker to ambulate. Patient mentions that he has had a wound on his left 3rd digit of left foot, associated with purulent discharge one month ago for which he was prescribed antibiotics for 10-14 days. The infection did not get better and he was also following up with [facility]. He denies any pain or difficulty weight-bearing on left foot. X-ray of the left foot at the [facility] shows bony resorptive changes involving 3rd distal phalanx with soft tissue swelling, concerning for osteomyelitis. MRI done at the [facility] shows near complete destruction of distal phalanx of 3rd digit and there is significant signal abnormality in the distal portion of the middle phalanx of the 3rd digit. Accompanied by dorsal subcutaneous edema. Patient mentions that he does not check his diabetes levels and uses 2 oral medications for diabetes but not insulin. He does not know his A1c level. He is not taking any antibiotics at present and he has an appointment with Dr. Robbins on for evaluation of his chronic foot wound. Meanwhile he had to ED due to abnormal MRI Allergies: Coded Allergies: No Known Allergies (Unverified , 08/09/15) Home Medications Home Medications Active Aldactone (Spironolactone) 25 Mg Tablet 25 Mg PO DAILY@0830 30 Days Lisinopril 5 Mg Tablet 5 Mg PO DAILY 30 Days Metoprolol Succinate 100 Mg Tab.sr.24h 1 Tab PO BID 30 Days Atorvastatin Calcium 20 Mg Tablet 20 Mg PO DAILY 30 Days Warfarin Sodium 5 Mg Tablet 1 Tab PO DAILY 30 Days Lasix (Furosemide) 40 Mg Tablet 1 Tab PO DAILY 30 Days Jardiance (Empagliflozin) 10 Mg Tablet 10 Mg PO DAILY Reported Multi Vitamin Daily (Multivitamin) 1 Each Tablet 1 Tab PO DAILY 30 Days [B12 Folate] 800 Mg PO DAILY Past Medical History Past Medical History Atrial Fibrillation, Coronary Artery Disease, Hypertension, Diabetes Past Surgical History Surgical History Comment Orthopedic surgery for left tibial fracture Past Social History Social History Comment Denies smoking, alcohol, usage of drugs. Lives alone at home Smoking: Non-Smoker Alcohol Use: None Drug Use: None Lives with: Alone Lives In: Home Occupation: retired ROS ROS Reviewed and negative except for the pertinent positives in HPI Constitutional: Denies: chills, fever, weakness Eyes: Denies: pain, blurred vision ENT: Denies: ear pain, nose pain, throat pain, mouth pain Respiratory: Denies: cough, shortness of breath Cardiovascular: Denies: chest pain, palpitations Gastrointestinal: Denies: abdominal pain, nausea, vomiting Genitourinary: Denies: burning, dysuria Male Genitalia: Denies: penile discharge, testicular pain Neurological: Denies: headache, dizziness Musculoskeletal: Denies: pain, swelling Integumentary: Denies: rash, lesions Allergic/Immunologic: Denies: hives, itching Hematologic/Lymphatic: Denies: no symptoms reported Psychiatric: Denies: depression, anxiety Exam Vitals: Vital Signs Date Time Temp Pulse Resp B/P (MAP) Pulse Ox O2 Delivery O2 Flow Rate FiO2 02/05/25 18:51 16 02/05/25 17:39 52 98 0 02/05/25 15:42 98.3 General: General: Awake and Alert, no acute distress. HEENT: Conjunctiva pink, Sclera clear, Mucus Membranes moist. Neck: Supple without masses and tenderness. Resp: Unlabored. Lungs clear to auscultation bilaterally. Heart: Regular Rate and rhythm, normal S1 and S2 without murmur, rub or gallop. Musculoskeletal: Patient on exam does have chronic appearing ulceration of the distal tuft of the left 3rd toe. There is minimal serosanguineous drainage. Patient has significant deformity of that left 3rd toe chronic appearing in nature. Patient has significantly decreased sensation distally of the feet bilaterally. Extremities: No cyanosis,clubbing or edema. Skin: Warm and Dry. Diagnostic Data Last Recorded Lab Results: 02/05/25 1639 02/05/25 1639 Diagnostic Data: Laboratory Tests Test 02/05/25 16:39 Prothrombin Time 21.0 SECONDS (9.0-12.0) H INR International Normalized Ratio 2.2 INR Activated Partial Thromboplast Time 34 SECONDS (22-32) H Coagulation Comments Advance Care Planning Advanced Care plannin - 30 Minutes (I spent a total of 17 minutes on reviewing various resuscitative measures/ ACP with the patient at the time of admission. The patient has decided on a full code status) Additional Plan Osteomyelitis of the left 3rd digit of foot X-ray of the left foot at the [facility] shows bony resorptive changes involving 3rd distal phalanx with soft tissue swelling, concerning for osteomyelitis. MRI done at the [facility] shows near complete destruction of distal phalanx of 3rd digit and there is significant signal abnormality in the distal portion of the middle phalanx of the 3rd digit. Accompanied by dorsal subcutaneous edema. CBC, CMP, procalcitonin lactic acid are unremarkable. Pro BNP slightly elevated at 716. ESR, CRP, wound cultures, blood cultures, Lipid panel, A1c ordered is pending. Follow up. Consulted Dr. Castle who recommends consulting Dr. Galindo for amputation of left foot osteomyelitis. Consulted Dr. Galindo. Recommendations appreciated Diabetes mellitus type 2 Started on hyperglycemia, hypoglycemia protocol with 20 units Lantus and Humalog insulin as needed. Carb controlled diet 60 g. chronic CHF, not in exacerbation Continue home medication Lasix 40 mg p.o. daily, Jardiance 10 mg p.o. daily, lisinopril 5 mg, spironolactone 25 mg daily. Chest x-ray shows cardiomegaly with mild congestion. Patient does not have clinical signs of pedal edema, raised JVP, shortness of breath. Echocardiogram ordered. Follow up Hypetension Continue home medication lisinopril 5 mg metoprolol 100 mg p.o. b.i.d. History of Atrial fibrillation without RVR Sinus bradycardia EKG shows sinus bradycardia with a heart rate of 48. No ST changes. Continue metoprolol. Hold warfarin for anticipated amputation. However patient has not made a decision yet about amputation. INR is within the normal limits. Recheck INR before surgery. Code Status: Full code DVT Prophylaxis: Heparin Analgesia/Sedation: [place], morphine p.r.n. Lines/Tubes: PIV Gi Prophylaxis: None Nutrition: Carb controlled diet PT: Yes Prognosis: Guarded Disposition: Admit to surgical floor. Pending podiatry consultation. Kierra Araya MD Internal Medicine Resident PGY-1 Date of Service: Feb 05, 2025 Billing Provider: CONCEPCION PHILLIP MD Common Visit Codes: [id number] INP/OBS CARE (HIGH) Secondary Visit Codes: [id number] CARE PLAN 30 MINUTES KIERRA BRANCH, RES Feb 05, 2025 19:18 CONCEPCION PHILLIP MD Feb 10, 2025 16:23
[2025-02-05] MEDS: K and/or MAG REPLACEMENT MC SCH (20:00)
[2025-02-05] MEDS: docusate sod 100mg capsule PO SCH (20:00)
[2025-02-05 20:10] LABS: C-REACTIVE PROTEIN 0.73 MG/DL (0.0-0.5)
[2025-02-05] MEDS: VANCOMYCIN 1.75GM/WATER FOR INJ (PEG) 350 ML IVPB IV ONE (20:16)
[2025-02-05] MEDS: heparin, porcine 5000 units/ml vial SQ SCH (20:27)
[2025-02-05] MEDS: metoprolol succinate 25mg (24-HOUR) SR. Tablet PO SCH (21:51)
[2025-02-05] MEDS: insulin glargine (Lantus) pen - multi-dose SQ SCH (21:57)
[2025-02-05 22:00] VITALS: BP 177/61; PULSE 57; RESP 16; TEMP 97.9; O2SAT 98
[2025-02-05] MEDS: piperacillin/tazo 3.375gm/50ml 50 ML IV ONE (23:19)
[2025-02-06] MEDS: lisinopril 5mg tablet PO ONE (00:19)
[2025-02-06 05:24] LABS: BASOPHILS # (AUTO) 0.1 X10'3 (0-0.2); BASOPHILS % (AUTO) 1.3 % (0-1); EOSINOPHILS # (AUTO) 0.2 X10'3 (0-0.9); EOSINOPHILS % (AUTO) 2.2 % (0-6); HEMATOCRIT 46.6 % (42.0-52.0); HEMOGLOBIN 15.2 g/dl (14.0-17.9); LYMPHOCYTES # (AUTO) 1.1 X10'3 (1.1-4.8); LYMPHOCYTES % (AUTO) 15.5 % (21-51); MEAN CORPUSCULAR HEMOGLOBIN 26.9 PG (27.0-31.0); MEAN CORPUSCULAR HGB CONC 32.6 g/dL (33.0-36.5); MEAN CORPUSCULAR VOLUME 82.5 FL (78-98); MEAN PLATELET VOLUME 8.7 FL (7.4-10.4); MONOCYTES # (AUTO) 0.7 X10'3 (0-0.9); MONOCYTES % (AUTO) 9.2 % (2-12); NEUTROPHILS # (AUTO) 5.2 X10'3 (1.8-7.7); NEUTROPHILS % (AUTO) 71.8 % (42-75); PLATELET COUNT 220 X10'3 (140-440); RED BLOOD COUNT 5.65 X10'6 (4.70-6.10); WHITE BLOOD COUNT 7.2 X10'3 (4.5-11.0)
[2025-02-06] MEDS: vancomycin/NS 1 GM ADD-VANTAGE 250 ML IV SCH (05:43)
[2025-02-06 05:44] LABS: ALANINE AMINOTRANSFERASE 14 U/L (12-78); ALBUMIN 3.1 G/DL (3.4-5.0); ALBUMIN/GLOBULIN RATIO 0.9 (1.1-1.5); ALKALINE PHOSPHATASE 93 IU/L (46-116); ANION GAP 11 (8-16); ASPARTATE AMINO TRANSFERASE 29 U/L (10-37); BILIRUBIN,TOTAL 0.9 MG/DL (0.1-1.0); BLOOD UREA NITROGEN 22 MG/DL (7-18); BUN/CREATININE RATIO 21.6 (10.0-20.0); CALCIUM 8.2 MG/DL (8.5-10.1); CHLORIDE 104 MMOL/L (99-107); CHOL/HDL RATIO 3.7 (0.00-4.99); CHOLESTEROL 177 MG/DL (0-200); CREATININE 1.02 MG/DL (0.60-1.10); GLUCOSE 76 MG/DL (70-104); HDL CHOLESTEROL 48 MG/DL (35-60); LDL CHOLESTEROL 107 MG/DL (50-100); MAGNESIUM 2.1 MG/DL (1.5-2.4); POTASSIUM 3.4 MMOL/L (3.5-5.1); SODIUM 142 MMOL/L (135-145); TOTAL CARBON DIOXIDE 27.2 MMOL/L (24-32); TOTAL PROTEIN 6.4 G/DL (6.4-8.2); TRIGLYCERIDES 73 MG/DL (20-135); eCRCL 27 ML/MIN; eGFR 71 ML/MIN
[2025-02-06 06:00] VITALS: BP 156/75; PULSE 53; RESP 16; TEMP 98.5; O2SAT 94
[2025-02-06] MEDS ORDERED: warfarin 5mg tablet PO SCH (08:00)
[2025-02-06] MEDS: lisinopril 5mg tablet PO SCH (08:02)
[2025-02-06] MEDS: EMPAGLIFLOZIN 10 MG TABLET PO SCH (08:02)
[2025-02-06] MEDS: cyanocobalamin 500mcg tablet PO SCH (08:02)
[2025-02-06] MEDS: atorvastatin 20mg tablet PO SCH (08:02)
[2025-02-06] MEDS: multivitamins, therapeutics tablet PO SCH (08:03)
[2025-02-06] MEDS: furosemide 40mg tablet PO SCH (08:03)
[2025-02-06] MEDS: dextrose 50%-water 50ml dispensing syringe IV PRN (08:10)
[2025-02-06] MEDS: potassium Cl 20 mEq SR tablet PO PRN (08:15)
[2025-02-06] MEDS: spironolactone 25 MG tablet PO SCH (08:30)
[2025-02-06 10:00] VITALS: BP 166/83; PULSE 52; RESP 20; TEMP 98.1; O2SAT 98
--- NOTE | 2025-02-06 13:56 | VASCULAR REPORT ---
CLINICAL HISTORY: Left foot wound. TECHNIQUE: Bilateral lower extremity arterial duplex exam was performed. Grayscale, color Doppler, an d spectral waveform analysis was performed. COMPARISON: VASC VL ARTERIAL on DOS: 12/22/24 FINDINGS: Right Lower Extremity: Scattered atherosclerotic plaque. 50-79% stenosis demonstrated in the right p opliteal artery. Multiphasic waveforms are seen in the right common femoral artery through the above the knee popliteal artery. Monophasic waveforms are seen in the below-knee popliteal artery through t he right lower leg. Left Lower Extremity: Scattered atherosclerotic plaque. No focal stenosis or occlusion visualized. M ultiphasic waveforms are seen throughout the left lower extremity, except the left dorsalis pedis art mallika, which demonstrates monophasic waveforms. Flow reversal noted in the left anterior tibial artery. EXAMINATION DATA: RIGHT PSV (cm/sec) MEAT PROCESSOR 86 Profunda 62 SFA Prox 67 SFA Mid 71 SFA Dist 47 POP A 58 (proximally), 178 (popliteal fossa), 51 ([id number]) STUDY LEAD 34 DPA 16 GATO 31 PER 18 LEFT PSV (cm/sec) MEAT PROCESSOR 99 Profunda 40 SFA Prox 83 SFA Mid 72 SFA Dist 87 POP A 62 (proximally), 57 (distally) STUDY LEAD 61 DPA 28 GATO 83 PER 89 IMPRESSION: 1. Findings consistent with the 50-79% stenosis category in the right popliteal artery as described trixie villarreal. 2. Abnormal monophasic waveforms in the right lower extremity [id number] in the left dorsalis ped is artery. Flow reversal noted in the left anterior tibial artery. Multiphasic waveforms seen through out the rest of the left lower extremity. 3. Additional findings as described above.
--- NOTE | 2025-02-06 14:11 | VASCULAR REPORT ---
Ankle Brachial Index - Single Level Date: 02/06/2025 09:54 AM Clinical History: Left foot wound. Comparison: [facility] VL ELDER on DOS: 12/22/24 Findings: Ankle brachial index (ELDER) study was performed. Resting brachial pressure(s) in mmHg: LEFT: 166/83 RIGHT: Pressures measure 110 mm Hg of the posterior tibial artery and 160 mm Hg at the dorsalis pedis artery with ELDER of 0.96, mildly abnormal. Monophasic waveforms in the right anterior tibial and posterior t ibial arteries. Elevated DPA pressure may be due to densely calcified horn. LEFT: Pressures measure 130 mm Hg of the posterior tibial artery and 160 mm Hg of the dorsalis pedis artery . ELDER is 0.96, mildly abnormal. Multiphasic waveforms in the left posterior tibial artery and monoph asic waveforms in the left dorsalis pedis artery. Elevated DPA pressure may be due to densely calcif ied horn. IMPRESSION: 1. ELDER measures 0.96 at rest bilaterally, mildly abnormal, although may be artificially elevated due to calcified dorsalis pedis arteries. 2. Abnormal monophasic waveforms in the right anterior and posterior tibial arteries and left dorsali s pedis artery
--- NOTE | 2025-02-06 16:45 | CONSULTATION REPORT ---
History of Present Illness Providers to CC ~ Reason for Admit\Admit Dx: Osteomyelitis of foot Refering MD: MONSERRAT Hammonds History of Present Illness Left 3rd digit wound with xray and MRI at wound care center + for osteomyelitis Allergies: Coded Allergies: No Known Allergies (Unverified , 08/09/15) Home Medications Home Medications Active Aldactone (Spironolactone) 25 Mg Tablet 25 Mg PO DAILY@0830 30 Days Lisinopril 5 Mg Tablet 5 Mg PO DAILY 30 Days Metoprolol Succinate 100 Mg Tab.sr.24h 1 Tab PO BID 30 Days Atorvastatin Calcium 20 Mg Tablet 20 Mg PO DAILY 30 Days Lasix (Furosemide) 40 Mg Tablet 1 Tab PO DAILY 30 Days Jardiance (Empagliflozin) 10 Mg Tablet 10 Mg PO DAILY Reported Multi Vitamin Daily (Multivitamin) 1 Each Tablet 1 Tab PO DAILY 30 Days [B12 Folate] 800 Mg PO DAILY Physical Exam Last Vital Signs Recorded: Temperature: 98.1, Source: Oral, Heart Rate: 52, Respiratory Rate: 20, BP: 166/83, Pulse Oximetry: 98, Weight: 31.400 Physical Exam GEN: pt is NAD and AAOx3 DERM: erythema and edmea and ulcer to left 3rd digit - probes to bone, necrotic base with purulent drainage neuro: sensation diminished to LLE MSK: wound left 3rd digit VASC: pedal pulses palpable and cft WNL Results Diagram Lab Result Diagram: 02/06/2542602/06/25426 Assessment/Plan Additional Plan pt with osteomyelittis to left 3rd digit plan for amputation tomorrow morning discussed plan along with risks, benefits, and alternative treatment options with pt in detail npo midnight SOLANGE BROWN DPM Feb 06, 2025 16:45
--- NOTE | 2025-02-06 17:02 | RADIOLOGY REPORT ---
CLINICAL HISTORY: Osteomyelitis of the left foot 3rd digit. TECHNIQUE: Multi sequence multi planar MRI images of the right midfoot and forefoot were obtained wi thout IV contrast. COMPARISON: MR MRI LOWER EXTREMITY LEFT on DOS: 12/18/24. Radiographs dated 12/15/2024. FINDINGS: There is a wound at the distal aspect of the 3rd digit of the left foot with associated farley bcutaneous edema and soft tissue swelling, likely cellulitis in the appropriate clinical setting. Owens ited evaluation for abscess on noncontrast enhanced exam. Ill-defined fluid is seen of the distal asp ect of the 3rd digit. The distal phalanx of the 3rd digit is not visualized, may be due to complete e rosive changes and/or resection. There is marrow edema with T2 hyperintense signal and T1 hypointense signal in the distal aspect of the middle phalanx, suspected osteomyelitis, with some cortical destr uction suspected. The rest of the osseous structures in the midfoot and forefoot are intact. No other evidence for osteomyelitis. Moderate arthritic changes are seen of the 3rd tarsometatarsal joint wit h joint space narrowing and subchondral cystic change. Milder arthritic changes are seen of the 2nd and 4th tarsometatarsal joints with joint space narrowing and mild subchondral cystic change. Moderat e arthritic changes are seen of the inter cuneiform joints, with associated subchondral cystic change . There is moderate to marked fatty atrophy of the intrinsic musculature of the forefoot. IMPRESSION: 1. Wound of the distal aspect of the 3rd digit, suspected osteomyelitis/phlegmon. Limited evaluation for abscess on noncontrast enhanced exam. 2. Distal phalanx of the 3rd digit is not visualized, may be due to sequelae of prior erosive changes and/or amputation. Suspected osteomyelitis of the distal aspect of the middle phalanx of the 3rd dig it, although no significant progression compared to the prior MRI. 3. Additional findings as detailed above.
[2025-02-06] MEDS ORDERED: BUME1TAB8 PO (17:17)
--- NOTE | 2025-02-06 18:22 | PROGRESS NOTE- Residence ---
Progress Note - Resident Providers to CC Resident Creating Document: RADHA IVY, RES ~ Antibiotic Timeout Antibiotic Ordered?: Yes Subjective The patient was seen and examined at bedside today. MRI positive for possible osteomyelitis. Patient is scheduled for amputation by Dr. Galindo tomorrow. Objective Vital Signs Date Time Temp Pulse Resp B/P (MAP) Pulse Ox O2 Delivery O2 Flow Rate FiO2 02/06/25 10:00 98.1 52 20 166/83 (110) 98 Room Air 02/05/25 17:39 0 Result Diagram: 02/06/2542602/06/25426 General: Awake and Alert, no acute distress. HEENT: Conjunctiva pink, Sclera clear, Mucus Membranes moist. Neck: Supple without masses and tenderness. Resp: Unlabored. Lungs clear to auscultation bilaterally. Heart: Regular Rate and rhythm, normal S1 and S2 without murmur, rub or gallop. Musculoskeletal: Patient on exam does have chronic appearing ulceration of the distal tuft of the left 3rd toe. There is minimal serosanguineous drainage. Patient has significant deformity of that left 3rd toe chronic appearing in nature. Patient has significantly decreased sensation distally of the feet bilaterally. Extremities: No cyanosis,clubbing or edema. Skin: Warm and Dry. Coagulation Studies Laboratory Tests Test 02/05/25 16:39 Prothrombin Time 21.0 SECONDS (9.0-12.0) H INR International Normalized Ratio 2.2 INR Activated Partial Thromboplast Time 34 SECONDS (22-32) H Coagulation Comments Plan Plan Osteomyelitis of the left 3rd digit of foot MRI shows suspected osteomyelitis of distal aspect of the middle phalanx of 3rd digit. CBC, CMP, procalcitonin lactic acid are unremarkable. CRP mildly elevated 0.73, ESR WNL. Follow up with blood cultures. Follow up with arterial and venous ultrasounds. The patient is scheduled for amputation tomorrow morning. Continue IV Zosyn and vancomycin. Infectious diseases, Dr. Hu consult. Diabetes mellitus type 2 Started on hyperglycemia, hypoglycemia protocol with 20 units Lantus and Humalog insulin as needed. Carb controlled diet 60 g. Chronic CHF, not in exacerbation Continue home medication Lasix 40 mg p.o. daily, Jardiance 10 mg p.o. daily, lisinopril 5 mg, spironolactone 25 mg daily. Chest x-ray shows cardiomegaly with mild congestion. Patient does not have clinical signs of pedal edema, raised JVP, shortness of breath. Echocardiogram ordered. Follow up Hypetension Continue home medication lisinopril 5 mg metoprolol 100 mg p.o. b.i.d. History of Atrial fibrillation without RVR Sinus bradycardia EKG shows sinus bradycardia with a heart rate of 48. No ST changes. Continue metoprolol. Hold warfarin for amputation tomorrow. Code Status: Full code DVT Prophylaxis: Heparin Analgesia/Sedation: [place], morphine p.r.n. Lines/Tubes: PIV Gi Prophylaxis: None Nutrition: Carb controlled diet, NPO from midnight PT: Ordered Prognosis: Guarded Disposition: Continue care in [facility]. Amputation in a.m. Radha Ivy MD Internal Medicine Resident, PGY-1 Date of Service: Feb 06, 2025 Billing Provider: CONCEPCION PHILLIP MD Common Visit Codes: [id number] INP/OBS CARE(HIGH) RADHA IVY, RES Feb 06, 2025 18:22 CONCEPCION PHILLIP MD Feb 10, 2025 16:44
[2025-02-06] MEDS ORDERED: morphine 4 MG/ML inj SYRINge IV PRN ×2 (21:02)
[2025-02-06 22:00] VITALS: BP 138/69; PULSE 68; RESP 18; TEMP 98; O2SAT 94
[2025-02-07] VITALS (24 sets, daily range): BP systolic 81–170; BP diastolic 43–97; PULSE 3–79; RESP 14–18; TEMP 97.2–98.6; O2SAT 95–100
[2025-02-07] MEDS: VANCOMYCIN LEVEL IV ONE (06:30)
[2025-02-07 06:31] LABS: MEAN PLATELET VOLUME 8.3 FL (7.4-10.4); RED CELL DISTRIBUTION WIDTH 16.8 % (11.5-14.5)
[2025-02-07 06:34] LABS: HEMATOCRIT 46.4 % (42.0-52.0); HEMOGLOBIN 15.3 g/dl (14.0-17.9); MEAN CORPUSCULAR HEMOGLOBIN 27.2 PG (27.0-31.0); MEAN CORPUSCULAR VOLUME 82.6 FL (78-98); PLATELET COUNT 226 X10'3 (140-440); RED BLOOD COUNT 5.61 X10'6 (4.70-6.10); WHITE BLOOD COUNT 5.8 X10'3 (4.5-11.0)
[2025-02-07 06:48] LABS: ALANINE AMINOTRANSFERASE 18 U/L (12-78); ALBUMIN 2.7 G/DL (3.4-5.0); ALBUMIN/GLOBULIN RATIO 0.8 (1.1-1.5); ALKALINE PHOSPHATASE 91 IU/L (46-116); ANION GAP 7 (8-16); ASPARTATE AMINO TRANSFERASE 21 U/L (10-37); BILIRUBIN,TOTAL 0.5 MG/DL (0.1-1.0); BLOOD UREA NITROGEN 23 MG/DL (7-18); CALCIUM 8.3 MG/DL (8.5-10.1); CHLORIDE 107 MMOL/L (99-107); GLUCOSE 103 MG/DL (70-104); MAGNESIUM 2.1 MG/DL (1.5-2.4); POTASSIUM 4.2 MMOL/L (3.5-5.1); SODIUM 141 MMOL/L (135-145); TOTAL CARBON DIOXIDE 27.3 MMOL/L (24-32); VANCOMYCIN,TROUGH 18.9 ug/mL (10.0-20.0); eCRCL 27 ML/MIN; eGFR 72 ML/MIN
[2025-02-07 07:00] LABS: ANISOCYTOSIS 1+; PLATELET ESTIMATE NORMAL; TOTAL CELLS COUNTED 100
[2025-02-07] MEDS ORDERED: BUPIVAcaine 2.5mg/ml inj 50ml vial (contains preservative) ONE (07:24)
[2025-02-07] MEDS ORDERED: bacitracin 15gm ointment TP ONE (07:24)
[2025-02-07] MEDS ORDERED: vancomycin 1,000mg inj ONE (07:24)
[2025-02-07] MEDS ORDERED: meperidine/PF 25mg/ml syringe IV PRN (10:00)
[2025-02-07] MEDS ORDERED: ondansetron/PF 4mg/2ml inj IV PRN (10:00)
[2025-02-07] MEDS ORDERED: acetaminophen 1,000mg/100ml IV 100 ML IV PRN (10:00)
[2025-02-07] MEDS ORDERED: morphine 2 MG/ML inj. syringe IV PRN (10:00)
[2025-02-07] MEDS ORDERED: labetalol 20mg/4ml (5mg/ml) syringe IV PRN (10:00)
[2025-02-07] MEDS ORDERED: proCHLORperazine 10 MG/2 ml inj IV PRN (10:00)
[2025-02-07] MEDS ORDERED: hydrALAZINE 20mg/ml inj. IV PRN (10:00)
[2025-02-07] MEDS ORDERED: HYDROmorphone/PF 0.2 MG/ML SYRINGE IV PRN (10:00)
[2025-02-07] MEDS ORDERED: fentaNYL/PF 50MCG/1 ML 2ML syringe ONE (10:56)
[2025-02-07] MEDS ORDERED: ceFAZolin 1000mg inj ONE ×2 (11:11)
[2025-02-07] MEDS ORDERED: midazolam 1 mg/ML 2ml injection ONE (11:11)
[2025-02-07] MEDS ORDERED: propofol inj 20 ML IV ONE ×2 (11:11)
[2025-02-07] MEDS ORDERED: dexamethasone sod phosphate 4mg/ml inj. ONE (11:11)
[2025-02-07] MEDS ORDERED: ROPIVAcaine 0.5% (5mg/ml) 30ml vial ONE (11:11)
[2025-02-07] MEDS ORDERED: propofol (Diprivan) 10mg/ml 100ml bottle IV ONE (11:18)
[2025-02-07] MEDS ORDERED: naloxone 0.4 mg/ml inj IV PRN (11:55)
[2025-02-07] MEDS ORDERED: PCA WASTE DOCUMENTATION 1 MG ML MC SCH (11:55)
[2025-02-07] MEDS: hydrALAZINE 20mg/ml inj. IV ONE (15:14)
[2025-02-07] MEDS: ringers solution, lacted 1,000 ML IV SCH (16:18)
--- NOTE | 2025-02-07 16:31 | OPERATIVE REPORT ---
DATE OF SURGERY: 02/07/2025 DICTATING PHYSICIAN: Maximus Galindo DPM PREOPERATIVE DIAGNOSIS: Osteomyelitis to the left 3rd digit. POSTOPERATIVE DIAGNOSIS: Osteomyelitis to the left 3rd digit. PROCEDURE: Partial left third digit amputation. ANESTHESIA: MAC with local block. ESTIMATED BLOOD LOSS: 10 mL. HEMOSTASIS: Calf tourniquet at 250 mmHg. COMPLICATIONS: None. FINDINGS: As expected. SPECIMENS: Left distal third digit. DESCRIPTION OF PROCEDURE: The patient in the holding room. Planned procedure was explained to the patient in detail along with all the risks and benefits. The patient consented to the planned procedure and correct limb was signed. The patient was taken to the operating room and placed on the operating table in the supine position. Tourniquet was applied and the left lower extremity was scrubbed and draped in normal sterile fashion. The tourniquet was inflated. Attention was directed to the left toe. A transverse fish-mouth incision was made just distal to the proximal interphalangeal joint. The incision was taken down to the level of bone and joint utilizing sharp dissection and the distal portion of the toe was disarticulated at the proximal interphalangeal joint. All nonviable tissue was then sharply excised. The site was then copiously irrigated with Irrisept. Deep tissues were closed with 3-0 Vicryl and the skin was closed with 3-0 nylon. A Betadine sterile dressing was applied. The patient tolerated the anesthesia and procedure well and was transferred from the operating room to the recovery room in stable condition. Maximus Galindo DPM TID: [id number] RECEIPT: [id number] /JARED
--- NOTE | 2025-02-07 19:07 | PROGRESS NOTE- Residence ---
Progress Note - Resident Providers to CC Resident Creating Document: BRANCHKIERRA BLANTON, RES ~ Antibiotic Timeout Antibiotic Ordered?: Yes Subjective The patient was seen and examined at bedside today. Patient is hemodynamically stable postoperatively. He underwent Partial left third digit amputation today by Dr. Galindo. Objective Vital Signs Date Time Temp Pulse Resp B/P (MAP) Pulse Ox O2 Delivery O2 Flow Rate FiO2 02/07/25 16:00 71 18 149/63 (91) 97 Room Air 02/07/25 16:00 97.7 02/07/25 12:20 3.0 Result Diagram: 02/07/25 0602 02/07/25 0602 General: Awake and Alert, no acute distress. HEENT: Conjunctiva pink, Sclera clear, Mucus Membranes moist. Neck: Supple without masses and tenderness. Resp: Unlabored. Lungs clear to auscultation bilaterally. Heart: Regular Rate and rhythm, normal S1 and S2 without murmur, rub or gallop. Musculoskeletal: Surgical site clean and covered with dressing. Patient has significantly decreased sensation distally of the feet bilaterally. Extremities: No cyanosis,clubbing or edema. Skin: Warm and Dry. Coagulation Studies Laboratory Tests Test 02/05/25 16:39 Prothrombin Time 21.0 SECONDS (9.0-12.0) H INR International Normalized Ratio 2.2 INR Activated Partial Thromboplast Time 34 SECONDS (22-32) H Coagulation Comments Assessment Assessment This is a 79-year-old male with a history of atrial fibrillation, CAD, hypertension, diabetes presents to the ED after being sent from the wound care clinic for abnormal MRI results. Patient has had history of diabetes for more than 10 years and follows up with [facility] Dr. Prescott who is his PCP for diabetes. He lives alone at home and uses walker to ambulate. Patient mentions that he has had a wound on his left 3rd digit of left foot, associated with purulent discharge one month ago for which he was prescribed antibiotics for 10-14 days. The infection did not get better and he was also following up with [facility]. He denies any pain or difficulty weight-bearing on left foot. X-ray of the left foot at the [facility] shows bony resorptive changes involving 3rd distal phalanx with soft tissue swelling, concerning for osteomyelitis. MRI done at the [facility] shows near complete destruction of distal phalanx of 3rd digit and there is significant signal abnormality in the distal portion of the middle phalanx of the 3rd digit. Accompanied by dorsal subcutaneous edema. Patient mentions that he does not check his diabetes levels and uses 2 oral medications for diabetes but not insulin. He does not know his A1c level. He is not taking any antibiotics at present and he has an appointment with Dr. Robbins on for evaluation of his chronic foot wound. Meanwhile he had to ED due to abnormal MRI Plan Plan Osteomyelitis of the left 3rd digit of foot S/p partial amputation of the left 3rd digit MRI shows suspected osteomyelitis of distal aspect of the middle phalanx of 3rd digit. CBC, CMP, procalcitonin lactic acid are unremarkable. CRP mildly elevated 0.73, ESR WNL. Blood culture negative so far . No significant stenosis in venous ultrasounds. Arterial ultrasound shows 50-79% stenosis category in the right popliteal artery. Abnormal monophasic waveforms in the right lower extremity [id number] in the left dorsalis pedis artery. Flow reversal noted in the left anterior tibial artery. Multiphasic waveforms seen throughout the rest of the left lower extremity. Patient underwent partial amputation of left 3rd digit Continue IV Zosyn and vancomycin. Infectious diseases, Dr. Hu consulted for discharge antibiotic recommendations. Recommendations appreciated Diabetes mellitus type 2 Started on hyperglycemia, hypoglycemia protocol with 20 units Lantus and Humalog insulin as needed. Carb controlled diet 60 g. Chronic diastolic CHF, not in exacerbation Continue home medication Lasix 40 mg p.o. daily, Jardiance 10 mg p.o. daily, lisinopril 5 mg, spironolactone 25 mg daily. Chest x-ray shows cardiomegaly with mild congestion. Patient does not have clinical signs of pedal edema, raised JVP, shortness of breath. Echocardiogram shows mildly reduced function. Mild concentric hypertrophy. LVEF is 45-50%. Hypetension Continue home medication lisinopril 5 mg metoprolol 100 mg p.o. b.i.d. History of Atrial fibrillation without RVR Sinus bradycardia EKG shows sinus bradycardia with a heart rate of 48. No ST changes. Continue metoprolol. Hold warfarin. Restart at discharge Code Status: Full code DVT Prophylaxis: Heparin Analgesia/Sedation: Percocet for pain control Lines/Tubes: PIV Gi Prophylaxis: None Nutrition: Carb controlled diet PT: Ordered Prognosis: Guarded Disposition: Continue care in [facility]. Hemodynamically stable. Discharge Kierra Blanton MD Internal Medicine Resident, PGY-1 Date of Service: Feb 07, 2025 Billing Provider: CONCEPCION PHILLIP MD Common Visit Codes: [id number] INP/OBS CARE(HIGH) KIERRA BRANCH, RES Feb 07, 2025 19:07 CONCEPCION PHILLIP MD Feb 10, 2025 16:45
[2025-02-08] VITALS (8 sets, daily range): BP systolic 125–178; BP diastolic 61–96; PULSE 48–55; RESP 14–20; TEMP 96.1–97.8; O2SAT 94–98
[2025-02-08 05:16] LABS: BASOPHILS # (AUTO) 0.1 X10'3 (0-0.2); EOSINOPHILS # (AUTO) 0.1 X10'3 (0-0.9); EOSINOPHILS % (AUTO) 1.2 % (0-6); HEMATOCRIT 46.6 % (42.0-52.0); HEMOGLOBIN 15.1 g/dl (14.0-17.9); LYMPHOCYTES % (AUTO) 11.6 % (21-51); MEAN CORPUSCULAR HEMOGLOBIN 26.7 PG (27.0-31.0); MEAN CORPUSCULAR HGB CONC 32.4 g/dL (33.0-36.5); MEAN CORPUSCULAR VOLUME 82.3 FL (78-98); MEAN PLATELET VOLUME 8.5 FL (7.4-10.4); MONOCYTES # (AUTO) 0.6 X10'3 (0-0.9); NEUTROPHILS # (AUTO) 6.8 X10'3 (1.8-7.7); NEUTROPHILS % (AUTO) 79.2 % (42-75); PLATELET COUNT 230 X10'3 (140-440); RED BLOOD COUNT 5.66 X10'6 (4.70-6.10); RED CELL DISTRIBUTION WIDTH 16.7 % (11.5-14.5); WHITE BLOOD COUNT 8.6 X10'3 (4.5-11.0)
[2025-02-08 05:42] LABS: ALANINE AMINOTRANSFERASE 13 U/L (12-78); ALBUMIN 2.8 G/DL (3.4-5.0); ALBUMIN/GLOBULIN RATIO 0.9 (1.1-1.5); ALKALINE PHOSPHATASE 88 IU/L (46-116); ANION GAP 9 (8-16); ASPARTATE AMINO TRANSFERASE 20 U/L (10-37); BILIRUBIN,TOTAL 0.5 MG/DL (0.1-1.0); BLOOD UREA NITROGEN 20 MG/DL (7-18); BUN/CREATININE RATIO 20.6 (10.0-20.0); CALCIUM 8.6 MG/DL (8.5-10.1); CHLORIDE 108 MMOL/L (99-107); CREATININE 0.97 MG/DL (0.60-1.10); GLUCOSE 129 MG/DL (70-104); POTASSIUM 4.3 MMOL/L (3.5-5.1); SODIUM 140 MMOL/L (135-145); TOTAL CARBON DIOXIDE 23.4 MMOL/L (24-32); TOTAL PROTEIN 5.9 G/DL (6.4-8.2); eCRCL 28 ML/MIN; eGFR 75 ML/MIN
[2025-02-08] MEDS: lisinopril 20mg tablet PO SCH (08:00)
[2025-02-08] MEDS: amLODIPine 5mg tablet PO SCH (15:06)
[2025-02-08] MEDS: JUVEN Smoothie Arginine/Glut./Ca2+Bmb (Juven 19.3pkt) 240ml cup PO SCH (17:34)
[2025-02-08] MEDS ORDERED: ATOR20TA66 PO (17:43)
[2025-02-08] MEDS ORDERED: SPIR25TA5 PO (17:43)
[2025-02-08] MEDS ORDERED: DILT240T PO (17:43)
[2025-02-08] MEDS ORDERED: EMPA10TA PO (17:43)
[2025-02-08] MEDS ORDERED: WARF2.5T82 (17:43)
[2025-02-08] MEDS ORDERED: FURO40TA4 PO (17:43)
[2025-02-08] MEDS ORDERED: METO-411 PO (17:43)
--- NOTE | 2025-02-08 17:44 | CARDIOLOGY REPORT ---
APPROVED REPORT EXAM: Limited 2D, Doppler, and color-flow Echocardiogram. Patient Location: 4024 A Blood Pressure: 176/80 mmHg Heart Rate: 55 bpm Rhythm: ATRIAL FIBRILLATION Indications CONGESTIVE HEART FAILURE ELEVATED PROBNP (716) HYPERTENSION ATRIAL FIBRILLATION Overhead Irrigator: Ryan Burnett MD Previous echo: 01/14/25 [facility] (EF 45%, tr MR, mild to mod TR, tr PE) 2D Dimensions IVSd 1.3 (0.7-1.1cm) LVDd 5.4 cm PWd 1.3 (0.7-1.1cm) IVSs 1.6 (0.8-1.2cm) LVDs 3.9 (2.5-4.0cm) PWs 1.7 (0.8-1.2cm) LVEF(%) 52.3 (>50%) FS (%) 27.1 % SV 73.3 ml CO 15.3 L/min Aortic Valve AoV Peak Eliceo. 121.7 cm/s AO Peak GR. 5.9 mmHg Tricuspid Valve TR P. Velocity 254 cm/s RAP ESTIMATE 10 mmHg TR Peak Gr. 26 mmHg RVSP 36 mmHg LEFT VENTRICLE Normal LV size and mildly reduced function. Mild concentric hypertrophy. LVEF is 45-50%. RIGHT VENTRICLE RV is normal size and function. MITRAL VALVE Mild MV annular calcification without stenosis. Trace regurgitation. TRICUSPID VALVE TV appears structurally normal with mild regurgitation. PERICARDIUM Trace posterior pericardial effusion without hemodynamic compromise. Stable from exam on 01/14/25. Other Information Study Quality: Adequate Conclusion Normal LV size and mildly reduced function. Mild concentric hypertrophy. LVEF is 45-50%. RV is normal size and function. Mild MV annular calcification without stenosis. Trace regurgitation. TV appears structurally normal with mild regurgitation. Trace posterior pericardial effusion without hemodynamic compromise. Stable from exam on 01/14/25.
--- NOTE | 2025-02-08 19:44 | CONSULTATION ---
DATE OF CONSULTATION: 02/08/2025 DICTATING PHYSICIAN: Gregorio Cazares MD REASON FOR CONSULTATION: I am seeing the patient at the request of Dr. Rodriguez for evaluation of a left diabetic foot infection. HISTORY OF PRESENT ILLNESS: The patient is a 79-year-old male who was admitted to this facility 3 days ago with worsening infection of his left foot. He apparently has been followed by wound care for a couple of months. He did have a culture done in mid-December that showed some gram-positives along with some anaerobes. He is unclear what oral antibiotics he was taking prior to this hospitalization. He does have diabetes at baseline that appears to be under decent control. When he came into the hospital this time, he did have an MRI performed that showed non-visualization of the distal phalanx of the third toe. There was evidence of osteomyelitis at the distal aspect of the middle phalanx. Dr. Galindo of Podiatry was consulted and the patient was taken to the operating room yesterday for partial amputation of the third left toe. He is stable in the postoperative setting. PAST MEDICAL HISTORY: * Diabetes mellitus type 2. * Hypertension. * Atrial fibrillation. * Coronary artery disease. PAST SURGICAL HISTORY: Partial amputation of left third toe. He has undergone other orthopedic procedures in the past. ALLERGIES: None. MEDICATIONS: * Vancomycin. * Zosyn. * Lovenox. * Lisinopril. * Spironolactone. * Multivitamin. * Vitamin B12. * Furosemide. * Empagliflozin. * Atorvastatin. * Insulin glargine. * Metoprolol. * Colace. * Humalog. FAMILY HISTORY: Noncontributory. SOCIAL HISTORY: He lives alone locally. He does not smoke or drink alcohol. PHYSICAL EXAMINATION: VITAL SIGNS: He is afebrile with stable vital signs, currently on room air. GENERAL: He is a very pleasant elderly male lying in bed looking stable. HEENT: Sclerae anicteric. Mouth is clear. NECK: Supple. LUNGS: Clear to auscultation bilaterally. HEART: Regular rate and rhythm. ABDOMEN: Soft, nontender and nondistended. EXTREMITIES: No significant edema. He does have a palpable dorsalis pedis pulse at the left foot. The surgical dressing was taken down. The amputation site at the 3rd toe looks good with sutures in place. The remaining toe looks a little bit dusky, but seems to be perfused at this time. LABORATORY DATA: His white blood cell count is 8600, hemoglobin 15, platelets 230,000, creatinine is 0.97. Procalcitonin is normal. Blood cultures are negative. Wound culture grew Corynebacterium striatum. This organism was also identified back in December along with group B strep and some anaerobes. MRI was reviewed. He does have evidence of osteomyelitis at the distal aspect of the middle phalanx of the left third toe. The distal phalanx was not well visualized. He did have an arterial duplex ultrasound performed and he had multiphasic waveforms throughout the left lower extremity except for some flow reversal at the left anterior tibial artery. ELDER was normal. IMPRESSION: * Left foot infection involving the third toe with evidence of osteomyelitis at the distal aspect. The distal phalanx may have been destroyed by osteomyelitis and he has now undergone resection of the majority of the middle phalanx. This does appear to be a polymicrobial infection and Corynebacterium striatum has shown up on two different cultures. * Diabetes mellitus type 2 that appears to be controlled. He does have peripheral neuropathy at baseline. Vascular supply should be adequate for healing. RECOMMENDATIONS: He is currently on vancomycin and Zosyn. I am going to change vancomycin over to oral linezolid. He should be able to switch from Zosyn over to Augmentin when he is closer to discharge. I would recommend 2 weeks of oral linezolid and Augmentin to be taken after this hospitalization to ensure healing of the third toe. I believe we are going to try and get him home soon. He will need appropriate postoperative care with wound care and offloading. I am hopeful that he will do well and I thank you for allowing me to participate in his care. Gregorio Cazares MD TID: [id number] RECEIPT: [id number] JERO/STANLEY
--- NOTE | 2025-02-08 20:39 | PROGRESS NOTE- Residence ---
Progress Note - Resident Providers to CC Resident Creating Document: KIERRA BRANCH, RES ~ Antibiotic Timeout Antibiotic Ordered?: Yes Subjective The patient was seen and examined at bedside today. Patient is hemodynamically stable postoperatively day one. He underwent Partial left third digit amputation today by Dr. Galindo. Dr. Hoyos recommends continuing two weeks of linezolid and Augmentin after discharge. Discharge tomorrow Objective Vital Signs Date Time Temp Pulse Resp B/P (MAP) Pulse Ox O2 Delivery O2 Flow Rate FiO2 02/08/25 15:11 49 14 130/65 (86) 94 Room Air 02/08/25 10:00 97.8 02/07/25 12:20 3.0 Result Diagram: 02/08/2541702/08/25417 General: Awake and Alert, no acute distress. HEENT: Conjunctiva pink, Sclera clear, Mucus Membranes moist. Neck: Supple without masses and tenderness. Resp: Unlabored. Lungs clear to auscultation bilaterally. Heart: Regular Rate and rhythm, normal S1 and S2 without murmur, rub or gallop. Musculoskeletal: Surgical site clean and covered with dressing. Patient has significantly decreased sensation distally of the feet bilaterally. Extremities: No cyanosis,clubbing or edema. Skin: Warm and Dry. Coagulation Studies Laboratory Tests Test 02/05/25 16:39 Prothrombin Time 21.0 SECONDS (9.0-12.0) H INR International Normalized Ratio 2.2 INR Activated Partial Thromboplast Time 34 SECONDS (22-32) H Coagulation Comments Assessment Assessment This is a 79-year-old male with a history of atrial fibrillation, CAD, hypertension, diabetes presents to the ED after being sent from the wound care clinic for abnormal MRI results. Patient has had history of diabetes for more than 10 years and follows up with [facility] Dr. Prescott who is his PCP for diabetes. He lives alone at home and uses walker to ambulate. Patient mentions that he has had a wound on his left 3rd digit of left foot, associated with purulent discharge one month ago for which he was prescribed antibiotics for 10-14 days. The infection did not get better and he was also following up with [facility]. He denies any pain or difficulty weight-bearing on left foot. X-ray of the left foot at the [facility] shows bony resorptive changes involving 3rd distal phalanx with soft tissue swelling, concerning for osteomyelitis. MRI done at the [facility] shows near complete destruction of distal phalanx of 3rd digit and there is significant signal abnormality in the distal portion of the middle phalanx of the 3rd digit. Accompanied by dorsal subcutaneous edema. Patient mentions that he does not check his diabetes levels and uses 2 oral medications for diabetes but not insulin. He does not know his A1c level. He is not taking any antibiotics at present and he has an appointment with Dr. Robbins on for evaluation of his chronic foot wound. Meanwhile he had to ED due to abnormal MRI Plan Plan Osteomyelitis of the left 3rd digit of foot S/p partial amputation of the left 3rd digit MRI shows suspected osteomyelitis of distal aspect of the middle phalanx of 3rd digit. CBC, CMP, procalcitonin lactic acid are unremarkable. CRP mildly elevated 0.73, ESR WNL. Blood culture negative so far . No significant stenosis in venous ultrasounds. Arterial ultrasound shows 50-79% stenosis category in the right popliteal artery. Abnormal monophasic waveforms in the right lower extremity [id number] in the left dorsalis pedis artery. Flow reversal noted in the left anterior tibial artery. Multiphasic waveforms seen throughout the rest of the left lower extremity. Patient underwent partial amputation of left 3rd digit Infectious diseases, Dr. hoyos consulted for discharge antibiotic recommendations. Continue Augmentin and linezolid for two weeks after discharge Diabetes mellitus type 2 Started on hyperglycemia, hypoglycemia protocol with 20 units Lantus and Humalog insulin as needed. Carb controlled diet 60 g. Chronic diastolic CHF, not in exacerbation Continue home medication Lasix 40 mg p.o. daily, Jardiance 10 mg p.o. daily, lisinopril 5 mg, spironolactone 25 mg daily. Chest x-ray shows cardiomegaly with mild congestion. Patient does not have clinical signs of pedal edema, raised JVP, shortness of breath. Echocardiogram shows mildly reduced function. Mild concentric hypertrophy. LVEF is 45-50%. Hypetension Continue home medication lisinopril 5 mg metoprolol 100 mg p.o. b.i.d. History of Atrial fibrillation without RVR Sinus bradycardia EKG shows sinus bradycardia with a heart rate of 48. No ST changes. Continue metoprolol. Hold warfarin. Restart at discharge Code Status: Full code DVT Prophylaxis: Heparin Analgesia/Sedation: Percocet for pain control Lines/Tubes: PIV Gi Prophylaxis: None Nutrition: Carb controlled diet PT: Home independent Prognosis: Guarded Disposition: Continue care in [facility]. Hemodynamically stable. Discharge with Augmentin and linezolid for two weeks. PT cleared Kierra Araya MD Internal Medicine Resident, PGY-1 Date of Service: Feb 08, 2025 Billing Provider: CONCEPCION PHILLIP MD Common Visit Codes: [id number] INP/OBS CARE(HIGH) KIERRA BRANCH, RES Feb 08, 2025 20:39 CONCEPCION PHILLIP MD Feb 10, 2025 16:45
[2025-02-08] MEDS: oxyCODONE/APAP 5-325mg tablet PO PRN (21:11)
[2025-02-08] MEDS: linezolid 600mg tablet PO SCH (21:11)
[2025-02-08] MEDS: enoxaparin 30mg/0.3ml syringe SQ SCH (21:13)
[2025-02-09 04:58] LABS: BASOPHILS % (AUTO) 0.3 % (0-1); EOSINOPHILS # (AUTO) 0.4 X10'3 (0-0.9); EOSINOPHILS % (AUTO) 5.8 % (0-6); HEMATOCRIT 44.8 % (42.0-52.0); HEMOGLOBIN 14.4 g/dl (14.0-17.9); LYMPHOCYTES # (AUTO) 1.4 X10'3 (1.1-4.8); LYMPHOCYTES % (AUTO) 21.9 % (21-51); MEAN CORPUSCULAR HEMOGLOBIN 26.7 PG (27.0-31.0); MEAN CORPUSCULAR HGB CONC 32.2 g/dL (33.0-36.5); MEAN CORPUSCULAR VOLUME 82.9 FL (78-98); MONOCYTES # (AUTO) 0.7 X10'3 (0-0.9); MONOCYTES % (AUTO) 10.3 % (2-12); NEUTROPHILS % (AUTO) 61.7 % (42-75); PLATELET COUNT 214 X10'3 (140-440); RED BLOOD COUNT 5.41 X10'6 (4.70-6.10); RED CELL DISTRIBUTION WIDTH 16.6 % (11.5-14.5); WHITE BLOOD COUNT 6.5 X10'3 (4.5-11.0)
[2025-02-09 05:20] LABS: ALANINE AMINOTRANSFERASE 10 U/L (12-78); ALBUMIN 2.7 G/DL (3.4-5.0); ALBUMIN/GLOBULIN RATIO 0.9 (1.1-1.5); ALKALINE PHOSPHATASE 81 IU/L (46-116); ANION GAP 8 (8-16); ASPARTATE AMINO TRANSFERASE 17 U/L (10-37); BILIRUBIN,TOTAL 0.5 MG/DL (0.1-1.0); BLOOD UREA NITROGEN 25 MG/DL (7-18); BUN/CREATININE RATIO 24.3 (10.0-20.0); CALCIUM 8.5 MG/DL (8.5-10.1); CHLORIDE 108 MMOL/L (99-107); CREATININE 1.03 MG/DL (0.60-1.10); GLUCOSE 105 MG/DL (70-104); MAGNESIUM 1.9 MG/DL (1.5-2.4); POTASSIUM 3.8 MMOL/L (3.5-5.1); SODIUM 142 MMOL/L (135-145); TOTAL CARBON DIOXIDE 26.1 MMOL/L (24-32); TOTAL PROTEIN 5.8 G/DL (6.4-8.2); eCRCL 26 ML/MIN; eGFR 70 ML/MIN
[2025-02-09 06:00] VITALS: BP 160/75; PULSE 50; RESP 16; TEMP 98.1; O2SAT 99
[2025-02-09] MEDS: metoprolol succinate 25mg (24-HOUR) SR. Tablet PO SCH (07:16)
[2025-02-09 07:27] VITALS: RESP 16; O2SAT 99
[2025-02-09] MEDS ORDERED: AMOX-580 PO (07:29)
[2025-02-09] MEDS ORDERED: LINE600T14 PO (07:29)
--- NOTE | 2025-02-09 07:54 | DISCHARGE SUMMARY-Residence ---
Discharge Summary Providers to CC Resident Creating Document: KIERRA BRANCH, RES ~ Discharge Summary Admission Diagnosis: Osteomyelitis Hospital Course DATE OF ADMISSION: 02/05/2025 DATE OF DISCHARGE: 02/09/2025 Discharge Diagnosis\Comment: Osteomyelitis of the left 3rd digit of foot S/p partial amputation of the left 3rd digit Diabetes mellitus type 2 Chronic diastolic CHF, not in exacerbation Hypetension History of Atrial fibrillation without RVR Operations\Procedures: Partial amputation of left 3rd digit Consultants: Dr. Cazares, Dr. Galindo Complications: None Condition on DC: Stable New Medications: Amox Tr/Potassium Clavulanate 875/125 MG (Augmentin 875/125 MG) 875 Mg-125 Mg Tablet 1 TAB PO BID for 14 Days, #28 TAB Linezolid (Linezolid) 600 Mg Tablet 600 MG PO Q12H for 14 Days, #28 TAB Continued Medications: Atorvastatin Calcium (Atorvastatin Calcium) 20 Mg Tablet 1 TAB PO DAILY Diltiazem HCl (Cardizem LA) 240 Mg Tab.er.24h 240 PO DAILY Empagliflozin (Jardiance) 10 Mg Tablet 1 TAB PO DAILY Furosemide (Furosemide) 40 Mg Tablet 1 TAB PO DAILY Metoprolol Succinate (Metoprolol Succinate) 100 Mg Tab.sr.24h 1 TAB PO BID Spironolactone (Spironolactone) 25 Mg Tablet 1 TAB PO DAILY Warfarin Sodium (Warfarin Sodium) 2.5 Mg Tablet Discharge Summary: History of present illness: This is a 79-year-old male with a history of atrial fibrillation, CAD, hypertension, diabetes presents to the ED after being sent from the wound care clinic for abnormal MRI results. Patient has had history of diabetes for more than 10 years and follows up with [facility] Dr. Prescott who is his PCP for diabetes. He lives alone at home and uses walker to ambulate. Patient mentions that he has had a wound on his left 3rd digit of left foot, associated with purulent discharge one month ago for which he was prescribed antibiotics for 10-14 days. The infection did not get better and he was also following up with [facility]. He denies any pain or difficulty weight-bearing on left foot. X-ray of the left foot at the [facility] shows bony resorptive changes involving 3rd distal phalanx with soft tissue swelling, concerning for o steomyelitis. MRI done at the [facility] shows near complete destruction of distal phalanx of 3rd digit and there is significant signal abnormality in the distal portion of the middle phalanx of the 3rd digit. Accompanied by dorsal subcutaneous edema. Patient mentions that he does not check his diabetes levels and uses 2 oral medications for diabetes but not insulin. He does not know his A1c level. He is not taking any antibiotics at present and he has an appointment with Dr. Robbins on for evaluation of his chronic foot wound. Meanwhile he had to ED due to abnormal MRI Hospital course: MRI shows suspected osteomyelitis of distal aspect of the middle phalanx of 3rd digit. CBC, CMP, procalcitonin lactic acid are unremarkable. CRP mildly elevated 0.73, ESR WNL. Blood culture negative so far . No significant stenosis in venous ultrasounds. Arterial ultrasound shows 50-79% stenosis category in the right popliteal artery. Abnormal monophasic waveforms in the right lower ext remity [id number] in the left dorsalis pedis artery. Flow reversal noted in the left anterior tibial artery. Multiphasic waveforms seen throughout the rest of the left lower extremity. Patient underwent partial amputation of left 3rd digit. Infectious diseases was consulted for discharge antibiotic recommendations. Continue Augmentin and linezolid for two weeks after discharge . Diabetes mellitus type 2, Started on hyperglycemia, hypoglycemia protocol with 20 units Lantus and Humalog insulin as needed. Carb controlled diet 60 g. Chronic diastolic CHF, not in exacerbation. Continue home medication Lasix 40 mg p.o. daily, Jardiance 10 mg p.o. daily, lisinopril 5 mg, spironolactone 25 mg daily. Chest x-ray shows cardiomegaly with mild congestion. Patient does not have clinical signs of pedal edema, raised JVP, shortness of breath. Echocardiogram shows mildly reduced function. Mild concentric hypertrophy. LVEF is 45-50%. Hypetension. Continue home medication lisinopril 5 mg metoprolol 100 mg p.o. b.i.d. Physical examination at discharge: General: Awake and Alert, no acute distress. HEENT: Conjunctiva pink, Sclera clear, Mucus Membranes moist. Neck: Supple without masses and tenderness. Resp: Unlabored. Lungs clear to auscultation bilaterally. Heart: Regular Rate and rhythm, normal S1 and S2 without murmur, rub or gallop. Musculoskeletal: Surgical site clean and covered with dressing. Patient has significantly decreased sensation distally of the feet bilaterally. Extremities: No cyanosis,clubbing or edema. Skin: Warm and Dry. Vital Signs Date Time Temp Pulse Resp B/P (MAP) Pulse Ox O2 Delivery O2 Flow Rate FiO2 02/09/25 07:27 16 99 Room Air 3.0 02/09/25 07:17 50 02/09/25 06:00 98.1 160/75 (103) Laboratory Tests Test 02/07/25 16:41 02/07/25 20:28 02/08/25 04:18 02/08/25 07:53 Glucometer 166 mg/dl 185 mg/dl 117 mg/dl White Blood Count 8.6 X10'3 Red Blood Count 5.66 X10'6 Hemoglobin 15.1 g/dl Hematocrit 46.6 % Mean Corpuscular Volume 82.3 FL Mean Corpuscular Hemoglobin 26.7 PG Mean Corpuscular Hemoglobin Concent 32.4 g/dL Red Cell Distribution Width 16.7 % Platelet Count 230 X10'3 Mean Platelet Volume 8.5 FL Neutrophils (%) (Auto) 79.2 % Lymphocytes (%) (Auto) 11.6 % Monocytes (%) (Auto) 7.0 % Eosinophils (%) (Auto) 1.2 % Basophils (%) (Auto) 1.0 % Neutrophils # (Auto) 6.8 X10'3 Lymphocytes # (Auto) 1.0 X10'3 Monocytes # (Auto) 0.6 X10'3 Eosinophils # (Auto) 0.1 X10'3 Basophils # (Auto) 0.1 X10'3 CBC Comment Sodium Level 140 MMOL/L Potassium Level 4.3 MMOL/L Chloride Level 108 MMOL/L Carbon Dioxide Level 23.4 MMOL/L Anion Gap 9 Blood Urea Nitrogen 20 MG/DL Creatinine 0.97 MG/DL Estimated GFR/1.73 m2 75 ML/MIN BUN/Creatinine Ratio 20.6 Glucose Level 129 MG/DL Calcium Level 8.6 MG/DL Magnesium Level 2.0 MG/DL Total Bilirubin 0.5 MG/DL Aspartate Amino Transf (AST/SGOT) 20 U/L Alanine Aminotransferase (ALT/SGPT) 13 U/L Alkaline Phosphatase 88 IU/L Total Protein 5.9 G/DL Albumin 2.8 G/DL Globulin 3.1 G/DL Albumin/Globulin Ratio 0.9 Chemistry Comments Test 02/08/25 12:45 02/08/25 17:32 02/08/25 21:19 02/09/25 04:44 Glucometer 181 mg/dl 144 mg/dl 170 mg/dl White Blood Count 6.5 X10'3 Red Blood Count 5.41 X10'6 Hemoglobin 14.4 g/dl Hematocrit 44.8 % Mean Corpuscular Volume 82.9 FL Mean Corpuscular Hemoglobin 26.7 PG Mean Corpuscular Hemoglobin Concent 32.2 g/dL Red Cell Distribution Width 16.6 % Platelet Count 214 X10'3 Mean Platelet Volume 8.0 FL Neutrophils (%) (Auto) 61.7 % Lymphocytes (%) (Auto) 21.9 % Monocytes (%) (Auto) 10.3 % Eosinophils (%) (Auto) 5.8 % Basophils (%) (Auto) 0.3 % Neutrophils # (Auto) 4.0 X10'3 Lymphocytes # (Auto) 1.4 X10'3 Monocytes # (Auto) 0.7 X10'3 Eosinophils # (Auto) 0.4 X10'3 Basophils # (Auto) 0.0 X10'3 CBC Comment Sodium Level 142 MMOL/L Potassium Level 3.8 MMOL/L Chloride Level 108 MMOL/L Carbon Dioxide Level 26.1 MMOL/L Anion Gap 8 Blood Urea Nitrogen 25 MG/DL Creatinine 1.03 MG/DL Estimated GFR/1.73 m2 70 ML/MIN BUN/Creatinine Ratio 24.3 Glucose Level 105 MG/DL Calcium Level 8.5 MG/DL Magnesium Level 1.9 MG/DL Total Bilirubin 0.5 MG/DL Aspartate Amino Transf (AST/SGOT) 17 U/L Alanine Aminotransferase (ALT/SGPT) 10 U/L Alkaline Phosphatase 81 IU/L Total Protein 5.8 G/DL Albumin 2.7 G/DL Globulin 3.1 G/DL Albumin/Globulin Ratio 0.9 Chemistry Comments Test 02/09/25 07:14 Glucometer 93 mg/dl Imaging: Arterial ultrasound: 1. Findings consistent with the 50-79% stenosis category in the right popliteal artery. 2. Abnormal monophasic waveforms in the right lower extremity [id number] in the left dorsalis pedis artery. Flow reversal noted in the left anterior tibial artery. Multiphasic waveforms seen throughout the rest of the left lower extremity. Vascular ultrasound: 1. ELDER measures 0.96 at rest bilaterally, mildly abnormal, although may be artificially elevated due to calcified dorsalis pedis arteries. 2. Abnormal monophasic waveforms in the right anterior and posterior tibial arteries and left dorsalis pedis artery MRI of left foot: 1. Wound of the distal aspect of the 3rd digit, suspected osteomyelitis/phlegmon . Limited evaluation for abscess on noncontrast enhanced exam. 2. Distal phalanx of the 3rd digit is not visualized, may be due to sequelae of prior erosive changes and/or amputation. Suspected osteomyelitis of the distal aspect of the middle phalanx of the 3rd digit, although no significant progression compared to the prior MRI. Discharge instructions: Follow up with Dr. Galindo and Dr. Cazares outpatient after discharge in a week. Follow up with the PCP and follow strict glycemic control of your diabetes. We have prescribed two new antibiotics to take for two weeks. Take them as prescribed. Return to the ED if you have worsening pain or fever or any discharge from the surgical site. *Problems/Diagnosis: (1) Hyperglycemia Status: Acute (2) Atrial fibrillation with RVR Status: Resolved (3) Osteomyelitis of toe Status: Acute Total Time Spent on D/C: > 30 Minutes Date of Service: Feb 09, 2025 Billing Provider: CONCEPCION PHILLIP MD Common Visit Codes: 21533-UDO/OBS DISCH DAY >30min KIERRA BRANCH, RES Feb 09, 2025 07:53 CONCEPCION PHILLIP MD Feb 10, 2025 16:45
[2025-02-09 10:00] VITALS: BP 134/65; PULSE 58; RESP 16; TEMP 98; O2SAT 97
[2025-02-09 11:43] VITALS: BP_SYST 135; PULSE 65
--- NOTE | 2025-02-10 13:48 | PATHOLOGY REPORT ---
[facility] [address] [place] [address] SURGICAL PATHOLOGY REPORT CaseNumber: [id number] Surgeon:Maximus Galindo M.D. CLINICAL INFORMATION CLINICAL INFORMATION: Osteomyelitis. DIAGNOSIS DIAGNOSIS: TOE, LEFT THIRD; AMPUTATION - BENIGN DIGIT WITH CHANGES OF CHRONIC OSTEOMYELITIS. - THE SURGICAL MARGIN IS VIABLE. MICROSCOPIC DESCRIPTION MICROSCOPIC DESCRIPTION: 2 H&E stained slides are reviewed. They show sections of digit with subcutan eous fibrosis and granulation tissue formation. I do not see definitive ulceration. The underlying lennie ne shows evidence of chronic osteomyelitis including marrow fibrosis. I do not see convincing evidenc e of acute osteomyelitis. The soft tissue surgical margins appear viable. GROSS DESCRIPTION GROSS DESCRIPTION: Received in a container of formalin labeled with the patient's name, number, and " third toe left foot" is a portion of toe which measures 3 cm long by 2.5 cm in diameter. There is a 1 cm area of ulceration. Laser Beam Trim Operator sections are submitted as A1-A2 following decalcification. The time at which the specimen was removed was 1120. The time at which the specimen was placed in for [place] was 1123. Electronically signed by: Gregorio Mendez, 02/10/2025 1:19:00 PM
== END 2025-02-09 17:18 | disposition home health service (06) | DRG 617 ==
LOC: ER 14:04 → ED HOLD 17:03 → ORTHO 4S 22:09
PROVIDERS: ADMIT Family Medicine; ATTEND Family Medicine
PROC: 0Y6N0ZC Detachment at Left Foot, Partial 3rd Ray, Open Approach (ICD-10-PCS; principal; 2025-02-07 10:49)
DX: E11.69 Type 2 diabetes mellitus with other specified complication (principal); I50.32 Chronic diastolic (congestive) heart failure; M86.8X7 Other osteomyelitis, ankle and foot; I48.91 Unspecified atrial fibrillation; I25.10 Atherosclerotic heart disease of native coronary artery without angina pectoris; I11.0 Hypertensive heart disease with heart failure; E11.65 Type 2 diabetes mellitus with hyperglycemia; E11.40 Type 2 diabetes mellitus with diabetic neuropathy, unspecified
CPT/HCPCS: 36415; 71045; 73718; 80048; 80053; 80061; 80202; 81001; 82948; 83605; 83735; 83880; 84145; 85007; 85025; 85610; 85651; 85730; 86140; 87040; 87081; 87088; 93005; 93308; 93922; 93925; 96365; 97116; 97161; 97530; 99285; A4215; A4615; A4618; A6222; A6253; A6446; A6449; A7000; G0378; J0360; J0690; J0735; J1100; J1644; J1650; J1815; J2250; J2543; J2704; J2795; J3010; J3370; J3372; J3490; J7030; J7120

== ENCOUNTER 2025-03-25 14:42 | Emergency (ER) | payer BC ==
[~2025-03-25] VITALS: Ht 175.3 cm; Wt 91.8 kg
[~2025-03-25 14:42] MED LIST changes: -B12 FOLATE PO; +DILT240T PO; -FURO-149 PO; +FURO40TA4 PO; +LINE600T14 PO; +LISI20TA28 PO; -LISI5TAB22 PO; -MULT-1085 PO; -SPIR25TA PO; +SPIR25TA5 PO; -WARF-55 PO; +WARF2.5T82 PO
--- NOTE | 2025-03-25 15:39 | Physician Documentation ---
History of Present Illness ~ Chief Complaint: Mechanical Fall Stated Complaint: FALL Time Seen by MD: 15:37 Primary Medical Doctor: Dr Rodriguez Mode of Arrival: EMS HPI Patient presents to the emergency room with left-sided rib pain. He states he normally has not unsteady gait and falls often. Today he was walking across the floor tripped striking his left-sided ribs upon the corner of a chair. No other injuries reported. No head strike. Patient is on blood thinners Tetanus within 5 Years?: No Medication Reconciliation Allergies: Coded Allergies: No Known Allergies (Unverified , 03/25/25) Scheduled Atorvastatin Calcium (Atorvastatin Calcium), 1 TAB PO DAILY, (Reported) Diltiazem HCl (Cardizem LA), 240 PO DAILY, (Reported) Empagliflozin (Jardiance), 1 TAB PO DAILY, (Reported) Furosemide (Furosemide), 1 TAB PO DAILY, (Reported) Linezolid (Linezolid), 600 MG PO Q12H Lisinopril (Lisinopril), 1 TAB PO DAILY, (Reported) Metoprolol Succinate (Metoprolol Succinate), 1 TAB PO BID, (Reported) Spironolactone (Spironolactone), 1 TAB PO DAILY, (Reported) Warfarin Sodium (Warfarin Sodium), 1 TAB PO BID, (Reported) Past Medical History Past Medical History: Atrial Fibrillation, Coronary Artery Disease, Hypertension, Diabetes Past Surgical History: noncontributory Alcohol Use: None Drug Use: none Lives with: Alone Lives In: Home Occupation: retired Review of Systems ROS All review of systems negative except as per HPI Physical Exam Vital Signs: Temperature: 97.8, Source: Oral, Heart Rate: 57, Respiratory Rate: 16, BP: 133/71, Pulse Oximetry: 100, Weight: 91.820 Physical Exam General: Patient is awake, alert, oriented x4 in moderate distress Head: Normocephalic and atraumatic. Eyes: Conjunctival normal. EOMI. PERRL. ENT: Mucous membranes moist. Neck: Supple, trachea is midline. Chest: Clear to auscultation bilaterally without rales, rhonchi, or wheezes. There is no accessory muscle use or retractions. Exquisite tenderness to palpation to left ribs Cardiac: Bradycardic and regular without murmurs, gallops, or rubs. Progress Results/Orders Results/Orders Orders - SIAIAS STEELE MD Ct Chest (03/25/25 16:21) Cult Urine + [place] [facility] (03/25/25 17:37) Completed Orders - ISAIAS STEELE MD Ct Chest (03/25/25 16:21) Cbc/Diff (03/25/25 15:42) BMP (03/25/25 15:42) Hs Troponin I W Calculations (03/25/25 15:42) Ondansetron Inj. (Zofran 4mg/2ml Vial) (03/25/25 15:45) Ketorolac Trometh 15mg/Ml Vial (Toradol (03/25/25 15:45) Acetaminophen 1,000mg/100ml Iv (Ofirmev (03/25/25 15:45) Ua W/Microscopic, Cult If Ind (03/25/25 16:05) Medications Received in ER Medications (Trade) Dose Ordered Sig/Ariella Route PRN Reason Start Time Stop Time Status Last Admin Dose Admin (Zofran 4mg/2ml vial) 4 mg ONCE ONCE IV 03/25/25 15:45 03/25/25 15:46 DC 03/25/25 16:41 4 MG (Toradol injection) 15 mg ONCE ONCE IV 03/25/25 15:45 03/25/25 16:05 DC 03/25/25 16:41 15 MG Acetaminophen 100 ml @ 400 mls/hr ONCE ONCE IV 03/25/25 15:45 03/25/25 15:59 DC 03/25/25 16:41 400 MLS/HR Vital Signs 03/25/25 03/25/25 03/25/25 03/25/25 14:47 14:54 14:54 16:41 Temp 97.8 97.8 Pulse 57 57 Resp 15 16 16 16 B/P (MAP) 133/71 133/71 (91) Pulse Ox 100 100 Laboratory Tests Test 03/25/25 14:52 03/25/25 15:55 03/25/25 16:05 White Blood Count 8.7 Red Blood Count 5.21 Hemoglobin 14.3 Hematocrit 43.6 Mean Corpuscular Volume 83.6 Mean Corpuscular Hemoglobin 27.4 Mean Corpuscular Hemoglobin Concent 32.7 L Red Cell Distribution Width 16.9 H Platelet Count 284 Mean Platelet Volume 8.7 Neutrophils (%) (Auto) 64.1 Lymphocytes (%) (Auto) 20.9 L Monocytes (%) (Auto) 10.8 Eosinophils (%) (Auto) 3.1 Basophils (%) (Auto) 1.1 H Neutrophils # (Auto) 5.6 Lymphocytes # (Auto) 1.8 Monocytes # (Auto) 0.9 Eosinophils # (Auto) 0.3 Basophils # (Auto) 0.1 CBC Comment Sodium Level 135 Potassium Level 4.3 Chloride Level 101 Carbon Dioxide Level 28.8 Anion Gap 5 L Blood Urea Nitrogen 24 H Creatinine 1.12 H Estimated GFR/1.73 m2 63 BUN/Creatinine Ratio 21.4 H Glucose Level 115 H Calcium Level 8.9 Troponin I High Sensitivity 12 Albumin 3.3 L Chemistry Comments Urine Specimen Description Urinal Urine Color Yellow Urine Clarity Slightly cloudy Urine pH 6.0 Urine Specific [place] 1.010 Urine Protein Negative Urine Glucose (UA) >=1000 H Urine Ketones Negative Urine Occult Blood Negative Urine Nitrite Negative Urine Bilirubin Negative Urine Urobilinogen 0.2 Urine Leukocyte Esterase Negative Urine RBC None seen Urine WBC 5-10 H Urine Squamous Epithelial Cells None seen Urine Bacteria 1+ Urine Starch Few Urine Mucus None seen Urine Yeast Many Urine Culture Indicated Indicated Volume Urine Centrifuged 10 ml Urine Comment Medical Decision Making Findings Patient presented to the emergency room for evaluation of left rib pain. Differentials include but are not limited to rib pain, pneumothorax, ACS, soft tissue injury therefore emergent labs and imaging indicated. CT scan negative for fracture. Does show signs of possible cholecystitis and buckle fracture on the right however this is not where his pain that has and that has a negative Mina's sign and I do not feel he requires an ultrasound for investigation into possible cholecystitis. I feel this is an incidental finding. Patient's rib pain is responding to pain medications. Patient is very high risk for additional falls as he admittedly has a problem falling therefore I will not be prescribing opioids. I did discuss with him the need to aggressively treat his pain medication as that has risk for developing pneumonia. ER precautions discussed Departure Disposition: 01 HOME / SELF CARE / HOMELESS Impression: Primary Impression: Rib pain Condition: Improved Discharge Instructions: Fall Prevention in the Home, Adult, [id number] Additional Instructions: Be aggressive with your pain management that has you are at risk for developing pneumonia from rib pain and not coughing. Return for fevers or uncontrolled symptoms. Your CT scan was negative for rib fractures Referrals: NO PRIMARY CARE PROVIDER (PCP) Prescriptions Lidocaine (Lidoderm) 5 % Adh..patch 1 PATCH TOP DAILY for 30 Days, #30 PATCH 0 Refills may wear up to 12 hours Prov: ISAIAS STEELE MD 03/25/25 Acetaminophen (Tylenol Extra Strength) 500 Mg Tablet 2 TAB PO Q6H PRN PRN for pain or fever for 7 Days, #56 TAB Prov: ISAIAS STEELE MD 03/25/25 Ibuprofen* (Motrin*) 400 Mg Tablet 400 MG PO Q6H, #30 TAB Prov: ISAIAS STEELE MD 03/25/25 Education Educated: Patient Educated regarding: diagnosis, treatment, need for follow up Signature Scribe Signature: No scribe Attestation: The note accurately reflects work and decisions made by me.Isaias Steele MD 03/25/25 17:42 ISAIAS STEELE MD Mar 25, 2025 15:39
[2025-03-25 16:07] LABS: MEAN PLATELET VOLUME 8.7 FL (7.4-10.4); RED CELL DISTRIBUTION WIDTH 16.9 % (11.5-14.5)
[2025-03-25 16:24] LABS: CREATININE 1.12 MG/DL (0.60-1.10); TOTAL CARBON DIOXIDE 28.8 MMOL/L (24-32); eCRCL 54 ML/MIN; eGFR 63 ML/MIN
[2025-03-25] MEDS: acetaminophen 1,000mg/100ml IV 100 ML IV ONE (16:41)
[2025-03-25] MEDS: ketorolac trometh 15mg/ml vial 15 MG/ML ML IV ONE (16:41)
[2025-03-25] MEDS: ondansetron/PF 4mg/2ml inj IV ONE (16:41)
--- NOTE | 2025-03-25 17:21 | RADIOLOGY REPORT ---
Procedure: CT CT CHEST [facility] Study Date and Requested Time: 03/25/2025 04:17 P M History: right sided rib pain Comparison: None Dose: CTDI: 18.68 mGy DLP: 743.67 mGycm Technique: Multiplanar images obtained through the chest without contrast Findings: The thyroid gland is unremarkable. Mild cardiomegaly with trace pericardial effusion. No evidence of aortic aneurysm. Mild atherosclero tic calcification of the aorta. Heavy atherosclerotic calcification of the left anterior descending a rtery. No significant mediastinal lymphadenopathy. Trace left-sided pleural effusion with bibasilar and right anterior upper lobe atelectasis. No pneumo thorax or focal airspace consolidation. 3.6 x 2.7 cm gallstone within the gallbladder with mild gallbladder wall thickening and minimal peric holecystic edema. Punctate nonobstructing bilateral renal calculi. 3.2 cm right renal cyst . Mild hy perplasia of the adrenal glands. Moderate amount of fecal material within the colon. Otherwise, Part ial view of the upper abdomen is unremarkable. The soft tissues are unremarkable. Sclerotic focus of the left posterior rib 1 and left anterior ribs 7 sclerotic versus of the right lateral rib 3 , right posterolateral rib 4 right glenoid , C6 and T1 vertebral bodies which may represent bone islands with Blastic lesions not excluded. Multilevel ante rior bridging osteophytes of the thoracic spine extending from T3-T11. Buckling of right anterior rib 5. Impression: Trace left-sided pleural effusion with bibasilar and right anterior upper lobe atelectasis. Buckling of the right anterior rib 5 which may represent injury of unknown chronicity. Recommend cor relation with point tenderness. Cholelithiasis with mild gallbladder wall thickening minimal pericholecystic edema. Right upper quad rant ultrasound is recommended for further evaluation. Punctate nonobstructing bilateral renal calculi. Cm Left renal cyst Mild hyperplasia of the adrenal glands.
[2025-03-25 17:23] LABS: LEUKOCYTE ESTERASE ,URINE NEGATIVE (Neg); NITRITES, URINE NEGATIVE (Neg); OCCULT BLOOD,URINE NEGATIVE (Neg)
[2025-03-25 17:25] LABS: UA COLLECTION TYPE URINAL
[2025-03-25 17:35] LABS: MUCUS STRANDS NONE SEEN /LPF (Neg); SQUAMOUS EPITHELIAL CELL,UR NONE SEEN /LPF (FEW); STARCH,URINE FEW /HPF (NEGATIVE); YEAST MANY /HPF (NEGATIVE)
[2025-03-25 17:40] VITALS: TEMP 97.8
[2025-03-25] MEDS ORDERED: ACET-2615 PO (17:42)
[2025-03-25] MEDS ORDERED: LIDO-52 TOP (17:42)
[2025-03-25] MEDS ORDERED: IBUP-1984 PO (17:42)
[2025-03-25 18:29] VITALS: BP 146/77; PULSE 78; RESP 20; O2SAT 96
== END 2025-03-25 18:45 | disposition home or self-care (01) ==
LOC: ER 14:42
DX: R07.81 Pleurodynia (principal); E11.9 Type 2 diabetes mellitus without complications; I10 Essential (primary) hypertension; I25.10 Atherosclerotic heart disease of native coronary artery without angina pectoris; I48.91 Unspecified atrial fibrillation
CPT/HCPCS: 36415; 71250; 80048; 81001; 84484; 85025; 87077; 87088; 96365; 96375; 99285; J0131; J1885; J2405; A6258

== ENCOUNTER 2025-05-17 13:39 | Emergency (ER) | payer BC ==
[~2025-05-17] VITALS: Ht 175.3 cm; Wt 98.0 kg
[~2025-05-17 13:39] MED LIST changes: -ATOR20TA66 PO; +CARSR60C PO; -DILT240T PO; +FOLI1TAB27 PO; -FURO40TA4 PO; +LIDO-52 TOP; -LINE600T14 PO; +METF-438 PO; +METO-384 PO; -METO-411 PO; -SPIR25TA5 PO; +WARF-55 PO; -WARF2.5T82 PO
--- NOTE | 2025-05-17 14:00 | Physician Documentation ---
History of Present Illness ~ Chief Complaint: Confused Stated Complaint: WEAKNESS Time Seen by MD: 13:54 Primary Medical Doctor: Dr Michael HERNANDEZ 79-year-old male presents to the ED for increased confusion today. According to EMS his blood pressure was low upon their arrival. 85/55 States that he went to a doctor earlier today and he was sent to the ED for evaluation secondary to i ncreased confusion. Denies any falls denies any fevers or nausea or vomiting.. This patient currently A&O x2 . Patient states it is 1925. Blood sugar was in the low 100s his blood pressure has normalized at this time. Does have a history of mild dementia. Denies any urinary symptom Day of Onset: May 17, 2025 Medication Reconciliation Allergies: Coded Allergies: No Known Allergies (Unverified , 05/14/25) Scheduled Cephalexin*Monohydrate* (Keflex*), 1 CAP PO Q8H Diltiazem Hcl SR* (Cardizem SR*), 0.5 CAP PO TID, (Reported) Empagliflozin (Jardiance), 1 TAB PO DAILY, (Reported) Folic Acid* (Folic Acid*), 1 TAB PO DAILY, (Reported) Lidocaine (Lidoderm), 1 PATCH TOP DAILY Lisinopril (Lisinopril), 1 TAB PO DAILY, (Reported) Metformin HCl (Metformin HCl), 1 TAB PO DAILY, (Reported) Metoprolol Succinate (Metoprolol Succinate), 50 MG PO BID, (Reported) Warfarin Sodium (Warfarin Sodium), 1 TAB PO DAILY Discontinued Medications Atorvastatin Calcium (Atorvastatin Calcium), 1 TAB PO DAILY, (Reported) Discontinued Reason: patient no longer taking Diltiazem HCl (Cardizem LA), 240 PO DAILY, (Reported) Discontinued Reason: patient no longer taking Furosemide (Furosemide), 1 TAB PO DAILY, (Reported) Glipizide (Glipizide), 0.5 TAB PO DAILY, (Reported) Linezolid (Linezolid), 600 MG PO Q12H Discontinued Reason: patient no longer taking Metoprolol Succinate (Metoprolol Succinate), 1 TAB PO BID, (Reported) Discontinued Reason: patient no longer taking Potassium Chloride (Klor-Con), 1 TAB PO DAILY, (Reported) Spironolactone (Spironolactone), 1 TAB PO DAILY, (Reported) Discontinued Reason: patient no longer taking Warfarin Sodium (Warfarin Sodium), 1 TAB PO BID, (Reported) Discontinued Reason: patient no longer taking Past Medical History Past Medical History: Atrial Fibrillation, Coronary Artery Disease, Hypertension, Diabetes Past Surgical History: noncontributory Patient History: Breast abscess FHx: breast cancer sister Leukemia Brother Alcohol Use: None Drug Use: none Lives with: Alone Lives In: Home Occupation: retired Review of Systems All Other Systems at this time: Reviewed and Negative ROS As stated above in the HPI, otherwise all systems are reviewed and negative. Physical Exam Physical Exam General: Alert, no apparent distress. Respiratory: Lungs clear, no respiratory distress. Cardiovascular: Regular rate and rhythm, no murmurs. Gastrointestinal: Soft, nontender, nondistended. Bowels sounds present. Neurologic: Oriented x4. Psychiatric: Normal mood and affect. Skin: Normal color, warm and dry. No edema, no ecchymosis. Progress Results/Orders Results/Orders Orders - JAMIE ROBERTS SPACE CONTROLLER Chest,Single View (05/17/25 14:35) Monitor (05/17/25 14:00) Saline Lock (05/17/25 14:00) Cult Urine + [place] [address] (05/17/25 14:26) Page Hospitalist (05/17/25 ) Completed Orders - JAMIE ROBERTS SPACE CONTROLLER Electrocardiogram (05/17/25 14:00) Cbc/Diff (05/17/25 14:00) Chest,Single View (05/17/25 14:35) BMP (05/17/25 14:00) * Npo Until Passed Bedside Swa (05/17/25 14:00) Nursing Swallow Screen (05/17/25 14:00) Hs Troponin I W Calculations (05/17/25 14:00) Ua W/Microscopic, Cult If Ind (05/17/25 14:05) Ceftriaxone 2gm/D5w 50ml Bag (Rocephin 2 (05/17/25 15:40) Pt Inr (05/17/25 16:14) Medications Received in ER Medications (Trade) Dose Ordered Sig/Ariella Route PRN Reason Start Time Stop Time Status Last Admin Dose Admin Ceftriaxone Sodium/Dextrose 50 ml @ 100 mls/hr NOW IV 05/17/25 15:40 05/17/25 18:41 DC 05/17/25 16:04 100 MLS/HR Vital Signs 05/17/25 05/17/25 05/17/25 05/17/25 13:53 14:30 14:30 16:06 Temp 97.3 97.3 Pulse 70 72 69 Resp 18 16 14 12 B/P (MAP) 128/97 120/51 (74) 128/67 (87) Pulse Ox 98 98 99 O2 Flow Rate 0 0 05/17/25 18:36 Temp 97.3 Pulse 66 Resp 19 B/P (MAP) 107/58 Pulse Ox 98 Laboratory Tests Test 05/17/25 14:05 05/17/25 14:24 Urine Specimen Description Voided Urine Color Yellow Urine Clarity Cloudy Urine pH 5.5 Urine Specific [place] <=1.005 Urine Protein Negative Urine Glucose (UA) >=1000 H Urine Ketones Negative Urine Occult Blood Trace-intact Urine Nitrite Negative Urine Bilirubin Negative Urine Urobilinogen 0.2 Urine Leukocyte Esterase Small H Urine RBC 3-10 Urine WBC Tntc H Urine WBC Clumps Moderate Urine Squamous Epithelial Cells Moderate Urine Transitional Epithelial Cells Moderate Urine Amorphous Urates 1+ Urine Bacteria Few Urine Starch Moderate Urine Yeast Urine Culture Indicated Indicated Volume Urine Centrifuged 10 ml Urine Comment White Blood Count 7.8 Red Blood Count 3.17 L Hemoglobin 9.2 L Hematocrit 27.4 L Mean Corpuscular Volume 86.5 Mean Corpuscular Hemoglobin 29.0 Mean Corpuscular Hemoglobin Concent 33.5 Red Cell Distribution Width 16.9 H Platelet Count 273 Mean Platelet Volume 7.5 Neutrophils (%) (Auto) 58.5 Lymphocytes (%) (Auto) 29.1 Monocytes (%) (Auto) 9.8 Eosinophils (%) (Auto) 1.7 Basophils (%) (Auto) 0.9 Neutrophils # (Auto) 4.6 Lymphocytes # (Auto) 2.3 Monocytes # (Auto) 0.8 Eosinophils # (Auto) 0.1 Basophils # (Auto) 0.1 CBC Comment Prothrombin Time 18.0 H INR International Normalized Ratio 1.9 Coagulation Comments Sodium Level 142 Potassium Level 4.0 Chloride Level 107 Carbon Dioxide Level 25.2 Anion Gap 10 Blood Urea Nitrogen 29 H Creatinine 1.22 H Estimated GFR/1.73 m2 57 BUN/Creatinine Ratio 23.8 H Glucose Level 78 Calcium Level 8.5 Troponin I High Sensitivity 34 Albumin 2.9 L Chemistry Comments Microbiology Date/Time Source Procedure Growth Status 05/17/25 14:26 Urine Voided Urine Culture - Preliminary Culture received. Resulted Medical Decision Making Findings This 79-year-old male presents with subjective waxing and waning confusion. He has been and O x4 for multiple providers. And I evaluated him he said the year was 1924. 5 minutes later ED nurse evaluated and he reported 2024 and reported appropriate time place name and reason for being here.. He does not have positive nitrites or any signs of pyelonephritis he does have leukocyte esterase and WBCs in his urine.. This not have any signs of sepsis. He also had a CT scan recently which was unremarkable. This is the case was discussed with hospitalist Dr. Mckeon. She indicated that she just admitted the patient and corrected the his INR which was out of range. Stating that she felt that his mental status is per his baseline dementia. We agreed that patient can be seen in the outpatient setting for further evaluation Differential Dx:Considerations: Include: dehydration, Delirium Tr., DKA, encephalopathy, hypercalcemia, HHNC, hypoglycemia, hypernatremia, hyponatremia, hypoxia, postictal, closed head injury, C-spine injury, CVA, mass lesion, subarachnoid hemorrhage, drug overdose, encephalopathy, ETOH intoxication, medication toxicity, infection - meningitis, infection - sepsis, infection - UTI, heart failure, renal failure, respiratory failure, hyperthermia, hypothermia, other Departure Disposition: 01 HOME / SELF CARE / HOMELESS Impression: Primary Impression: Acute urinary tract infection Discharge Instructions: Urinary Tract Infection, Adult Referrals: NO PRIMARY CARE PROVIDER (PCP) Prescriptions Cephalexin*Monohydrate* (Keflex*) 500 Mg Capsule 1 CAP PO Q8H for 10 Days, #30 CAP Prov: JAMIE ROBERTS SPACE CONTROLLER 05/17/25 Signature Scribe Signature: y Attestation: Scribed for Jamie Roberts Commercial Real Estate Assistant by Jamie Roberts - [place] . 05/17/25 21:33 JAMIE ROBERTS SPACE CONTROLLER May 17, 2025 14:00
[2025-05-17 14:12] LABS: LEUKOCYTE ESTERASE ,URINE SMALL (Neg); NITRITES, URINE NEGATIVE (Neg); OCCULT BLOOD,URINE TRACE-INTACT (Neg)
--- NOTE | 2025-05-17 14:21 | ELECTROCARDIOGRAPH REPORT ---
[facility] Test Date: 2025-05-17 Test Time: 14:17:56 Pat Name: FREDERIC MELGAR Department: [facility]- Patient ID: [id number] Room: Gender: M Boarding Room Fixer: : 1945 Requested By: JAMIE ROBERTS Order Number: [id number] Reading MD: Dr. Gaurav Pelayo Measurements Intervals [place] Rate: 64 P: 23 WA: 144 QRS: 98 QRSD: 153 T: -29 QT: 418 QTc: 432 Interpretive Statements Sinus rhythm RBBB and LPFB Baseline wander in lead(s) V4 Electronically Signed On 05-19-2025 19:18:[address] Gaurav Pelayo Please click the below link to view image of tracing.
[2025-05-17 14:22] LABS: SQUAMOUS EPITHELIAL CELL,UR MODERATE /LPF (FEW); UA COLLECTION TYPE VOIDED
[2025-05-17 14:23] LABS: STARCH,URINE MODERATE /HPF (NEGATIVE); WBC CLUMPS,URINE MODERATE /HPF (NEGATIVE)
[2025-05-17 14:24] LABS: AMORPHOUS URATES 1+
[2025-05-17 14:36] LABS: MEAN PLATELET VOLUME 7.5 FL (7.4-10.4); RED CELL DISTRIBUTION WIDTH 16.9 % (11.5-14.5)
[2025-05-17 14:49] LABS: CREATININE 1.22 MG/DL (0.60-1.10); TOTAL CARBON DIOXIDE 25.2 MMOL/L (24-32); eCRCL 50 ML/MIN; eGFR 57 ML/MIN
--- NOTE | 2025-05-17 15:06 | RADIOLOGY REPORT ---
EXAM: DI CHEST,SINGLE VIEW HISTORY: aloc COMPARISON: DI CHEST,SINGLE VIEW on DOS: 05/15/25, DI CHEST,SINGLE VIEW on DOS: 02/20/25, DI CHEST,SINGLE VIEW on DOS: 02/05/25, DI CHEST,SINGLE VIEW on DOS: 01/13/25, DI CHEST,SINGLE VIEW on DOS: 11/05/24, CT scan of the chest dated 05/16/2025. TECHNIQUE: Portable semi-erect AP view of the chest was performed. FINDINGS: No pneumothorax, consolidative infiltrates, or pulmonary edema. The heart is enlarged. The aortic arch is calcific. There is an old fracture of the left clavicle. IMPRESSION: 1. No acute intrathoracic process. 2. Cardiomegaly and atherosclerotic vascular disease.
[2025-05-17] MEDS ORDERED: CEPH-585 PO (15:37)
[2025-05-17] MEDS: CefTRIAXone 2gm/D5W 50ml BAG 50 ML IV SCH (16:04)
[2025-05-17] MEDS ORDERED: CIPR-259 PO (16:27)
[2025-05-17 16:35] LABS: INR 1.9 INR
[2025-05-17 18:36] VITALS: BP 107/58; PULSE 66; RESP 19; TEMP 97.3; O2SAT 98
== END 2025-05-17 18:38 | disposition home or self-care (01) ==
LOC: ER 13:39
DX: N39.0 Urinary tract infection, site not specified (principal); I10 Essential (primary) hypertension; E11.9 Type 2 diabetes mellitus without complications; I25.10 Atherosclerotic heart disease of native coronary artery without angina pectoris; I48.91 Unspecified atrial fibrillation; Z79.84 Long term (current) use of oral hypoglycemic drugs; Z79.899 Other long term (current) drug therapy; Z60.2 Problems related to living alone
CPT/HCPCS: 36415; 71045; 80048; 81001; 84484; 85025; 85610; 87088; 93005; 96365; 99285; J0696